=== PATIENT | male | born 1940 | race Two or more races ===

== ENCOUNTER 2017-10-30 18:22 | Inpatient (IN) | payer MEDICARE, MEDICAID ==
[~2017-10-30] VITALS: Ht 170.2 cm; Wt 68.0 kg
[~2017-10-30 18:22] MED LIST: ASPIRIN-LOW81 MG PO; BENICAR HCT 201 EACH PO; FLOMAX0.4 MG PO; GLUCOPHAGE500 MG PO; LIPITOR10 MG PO; RANITIDINE HCL150 MG PO
[2017-10-30] MEDS ORDERED: Acetaminophen 650 MG SUPP RECTAL ONE (18:45)
[2017-10-30] MEDS ORDERED: Acetaminophen 500mg (ES) tab ORAL ONE (19:00)
[2017-10-30 19:16] LABS: HEMATOCRIT 33.1 % (42.0-52.0); HEMOGLOBIN 11.1 G/DL (14.2-18.0); MEAN CORPUSCULAR VOLUME 93 FL (80-99); PLATELET COUNT 234 K/UL (150-450); RED BLOOD COUNT 3.56 M/UL (4.70-6.10); RED CELL DISTRIBUTION WIDTH 11.7 % (11.6-14.8); WHITE BLOOD COUNT 7.6 K/UL (4.8-10.8)
[2017-10-30 19:30] VITALS: BP 109/59
[2017-10-30] MEDS ORDERED: AMBIEN5 MG ORAL (19:32)
[2017-10-30 19:42] LABS: ALANINE AMINOTRANSFERASE 24 U/L (12-78); ALBUMIN 3.5 G/DL (3.4-5.0); ALBUMIN/GLOBULIN RATIO 0.9 (1.0-2.7); ALKALINE PHOSPHATASE 42 U/L (46-116); ANION GAP 9 mmol/L (5-15); ASPARTATE AMINO TRANSFERASE 20 U/L (15-37); BILIRUBIN,TOTAL 0.7 MG/DL (0.2-1.0); BLOOD UREA NITROGEN 22 mg/dL (7-18); CARBON DIOXIDE 22 MMOL/L (21-32); CHLORIDE 105 MMOL/L (98-107); CKMB 2.1 NG/ML (0.0-3.6); CREATINE KINASE 271 U/L (26-308); POTASSIUM 4.4 MMOL/L (3.5-5.1); SODIUM 136 MMOL/L (136-145)
[2017-10-30 19:54] LABS: APPEARANCE,URINE SLIGHTLY CLOUDY; BILIRUBIN, URINE NEGATIVE (NEGATIVE); COLOR,URINE YELLOW; GLUCOSE, URINE (UA) NEGATIVE (NEGATIVE); KETONES,URINE 2+ (NEGATIVE); LEUKOCYTE ESTERASE ,URINE 3+ (NEGATIVE); NITRITE,URINE NEGATIVE (NEGATIVE); PH,URINE 6 (4.5-8.0); PROTEIN,URINE 3+ (NEGATIVE); UROBILINOGEN,URINE 1 MG/DL (0.0-1.0)
[2017-10-30] MEDS ORDERED: Piperacillin/Tazobactam 3.375 GM in NS 110 ML IVPB ONE (20:15)
[2017-10-30 20:30] VITALS: BP 128/111
--- NOTE | 2017-10-30 20:49 | Emergency Room Report ---
History of Present Illness General Chief Complaint: Altered Level of Consciousness Source: Patient, Medical Record, EMS Present Illness HPI 77-year-old male presents ED for evaluation. Patient brought in by EMS. Family at bedside states the patient had prostate surgery yesterday. Was seen by urologist this morning as patient could not urinate and he placed a Jeffries catheter. Patient was brought home today and tonight patient became diaphoretic and had near syncopal episode. Hypotensive in field. Given IV fluids. Febrile in triage. Denies chest pain or shortness of breath. Denies nausea or vomiting. PMD is Dr. Wade. No other aggravating or relieving factors. Denies any other associated symptoms Allergies: Uncoded Allergies: NO KNOWN DRUG ALLERGY (Allergy, Unknown, 01/19/15) Patient History Past Medical History: DM, HTN Past Surgical History: other - prostate Pertinent Family History: none Social History: Denies: smoking, alcohol use, drug use Immunizations: UTD Reviewed Nursing Documentation: PMH: Agreed; PSxH: Agreed Nursing Documentation-PMH Past Medical History: No History, Except For Hx Cardiac Problems: Yes Hx Hypertension: Yes Hx Diabetes: Yes Hx Cancer: No Hx Gastrointestinal Problems: Yes - STOMACH PAIN. Hx Neurological Problems: No Review of Systems All Other Systems: negative except mentioned in HPI Physical Exam Vital Signs Date Time Temp Pulse Resp B/P (MAP) Pulse Ox O2 Delivery O2 Flow Rate FiO2 10/30/17 18:19 102 20 99/55 100 Room Air 10/30/17 19:18 102.0 Sp02 EP Interpretation: reviewed, normal General Appearance: no apparent distress, alert, GCS 15, non-toxic Head: normocephalic, atraumatic Eyes: bilateral eye normal inspection, bilateral eye PERRL ENT: hearing grossly normal, normal pharynx, no angioedema, normal voice Neck: full range of motion, supple/symm/no masses Respiratory: chest non-tender, lungs clear, normal breath sounds, speaking full sentences Cardiovascular #1: regular rate, rhythm, no edema Cardiovascular #2: 2+ carotid (R), 2+ carotid (L), 2+ radial (R), 2+ radial (L) , 2+ dorsalis pedis (R), 2+ dorsalis pedis (L) Gastrointestinal: normal bowel sounds, non tender, soft, non-distended, no guarding, no rebound Rectal: deferred Genitourinary: normal inspection, no CVA tenderness Musculoskeletal: back normal, gait/station normal, normal range of motion, non- tender Neurologic: alert, oriented x3, responsive, motor strength/tone normal, sensory intact, speech normal Psychiatric: judgement/insight normal, memory normal, mood/affect normal, no suicidal/homicidal ideation Reflexes: 3+ bicep (R), 3+ bicep (L), 3+ tricep (R), 3+ tricep (L), 3+ knee (R) , 3+ knee (L) Skin: normal color, no rash, warm/dry, well hydrated Lymphatic: no adenopathy Medical Decision Making Diagnostic Impression: Primary Impression: BPH (benign prostatic hyperplasia) Qualified Codes: N40.0 - Benign prostatic hyperplasia without lower urinary tract symptoms Additional Impressions: UTI (urinary tract infection) Qualified Codes: N39.0 - Urinary tract infection, site not specified Syncope Qualified Codes: R55 - Syncope and collapse ER Course Hospital Course 77-year-old male presents ED with syncopal episode at home. Diaphoretic. Afebrile. Status post prostate procedure. Differential diagnoses include: NM/unstable angina, arrythmia, dehydration, CVA/ TIA Clinical course Patient placed on stretcher. on cardiac surgeon. After initial history and physical I ordered labs, EKG, chest x-ray, IVFs, CT Brain labs reviewed- no leukocytosis, hemoglobin/hematocrit ok, electrolytes okay, troponins negative. UA + bacteria EKG-sinus tachycardia Chest x-ray- ? consolidation in RLL CT brain-unremarkable given abx. given IVFs. BP improved Case discussed with Dr. Joseph (covering for Dr Wade) and he agreed to accept the patient to his service for further care and support I. I feel this is a highly complex case requiring extensive working including EKG/Rhythm strip, Xray/CT/US, Blood/urine lab work, repeat exams while in ED, and administration of strong opiates/narcotics for pain control, admission to hospital or close patient follow up. Diagnosis - syncope, UTI, BPH admitted to telemetry in serious condition Labs Test 10/30/17 18:40 10/30/17 19:30 White Blood Count 7.6 K/UL (4.8-10.8) Red Blood Count 3.56 M/UL (4.70-6.10) Hemoglobin 11.1 G/DL (14.2-18.0) Hematocrit 33.1 % (42.0-52.0) Mean Corpuscular Volume 93 FL (80-99) Mean Corpuscular Hemoglobin 31.1 PG (27.0-31.0) Mean Corpuscular Hemoglobin Concent 33.5 G/DL (32.0-36.0) Red Cell Distribution Width 11.7 % (11.6-14.8) Platelet Count 234 K/UL (150-450) Mean Platelet Volume 6.5 FL (6.5-10.1) Neutrophils (%) (Auto) % (45.0-75.0) Lymphocytes (%) (Auto) % (20.0-45.0) Monocytes (%) (Auto) % (1.0-10.0) Eosinophils (%) (Auto) % (0.0-3.0) Basophils (%) (Auto) % (0.0-2.0) Sodium Level 136 MMOL/L (136-145) Potassium Level 4.4 MMOL/L (3.5-5.1) Chloride Level 105 MMOL/L (98-107) Carbon Dioxide Level 22 MMOL/L (21-32) Anion Gap 9 mmol/L (5-15) Blood Urea Nitrogen 22 mg/dL (7-18) Creatinine 2.0 MG/DL (0.55-1.30) Estimat Glomerular Filtration Rate mL/min (>60) Glucose Level 127 MG/DL (74-106) Lactic Acid Level 2.40 mmol/L (0.66-2.22) Calcium Level 9.0 MG/DL (8.5-10.1) Total Bilirubin 0.7 MG/DL (0.2-1.0) Aspartate Amino Transf (AST/SGOT) 20 U/L (15-37) Alanine Aminotransferase (ALT/SGPT) 24 U/L (12-78) Alkaline Phosphatase 42 U/L (46-116) Total Creatine Kinase 271 U/L (26-308) Creatine Kinase MB 2.1 NG/ML (0.0-3.6) Creatine Kinase MB Relative Index 0.7 Troponin I 0.016 ng/mL (0.000-0.056) Pro-B-Type Natriuretic Peptide 210 pg/mL (0-125) Total Protein 7.2 G/DL (6.4-8.2) Albumin 3.5 G/DL (3.4-5.0) Globulin 3.7 g/dL Albumin/Globulin Ratio 0.9 (1.0-2.7) Urine Color Yellow Urine Appearance Slightly cloudy Urine pH 6 (4.5-8.0) Urine Specific [place] 1.010 (1.005-1.035) Urine Protein 3+ (NEGATIVE) Urine Glucose (UA) Negative (NEGATIVE) Urine Ketones 2+ (NEGATIVE) Urine Occult Blood 5+ (NEGATIVE) Urine Nitrite Negative (NEGATIVE) Urine Bilirubin Negative (NEGATIVE) Urine Urobilinogen 1 MG/DL (0.0-1.0) Urine Leukocyte Esterase 3+ (NEGATIVE) Urine RBC 15-20 /HPF (0 - 0) Urine WBC 10-15 /HPF (0 - 0) Urine Squamous Epithelial Cells None /LPF (NONE/OCC) Urine Bacteria Moderate /HPF (NONE) Urine Yeast Few /HPF (NONE) EKG Diagnostic Results Rate: tachycardiac Rhythm: NSR ST Segments: no acute changes ASA given to the pt in ED: No Rhythm Strip Diag. Results EP Interpretation: yes Rhythm: NSR, no PVC's, no ectopy Chest X-Ray Diagnostic Results Chest X-Ray Diagnostic Results : Chest X-Ray Ordered: Yes # of Views/Limited/Complete: 1 View Indication: Other - syncope EP Interpretation: Yes Interpretation: no pneumothorax, other - atelectasis ? consolidation Impression: Other - ?PNA Electronically Signed by: Electronically signed by Justo Sandoval MD CT/MRI/US Diagnostic Results CT/MRI/US Diagnostic Results : Imaging Test Ordered: CT Head Impression no acute process Last Vital Signs Date Time Temp Pulse Resp B/P (MAP) Pulse Ox O2 Delivery O2 Flow Rate FiO2 10/30/17 19:30 104 21 109/59 96 Room Air 10/30/17 19:18 102.0 Status: improved Disposition: ADMITTED INPATIENT Condition: Serious Referrals: Tyoa Wade MD (PCP) JUSTO SANDOVAL M.D. Oct 30, 2017 20:49
[2017-10-30 21:30] VITALS: BP 101/53
[2017-10-30] MEDS ORDERED: Zosyn 3.375gm inj ONE (21:38)
[2017-10-30 23:30] VITALS: BP 101/53
[2017-10-31] VITALS: BP 108/72
[2017-10-31] MEDS ORDERED: Zolpidem 5mg tab ORAL PRN (00:45)
[2017-10-31] MEDS ORDERED: TYLENOL650 MG/20. ORAL (01:50)
[2017-10-31 04:00] VITALS: BP 115/66
[2017-10-31] MEDS ORDERED: Zosyn 3.375gm inj ONE (05:02)
[2017-10-31] MEDS ORDERED: Piperacillin/Tazobactam 3.375 GM in D5W 110 ML IVPB SCH (06:00)
[2017-10-31] MEDS ORDERED: NovoLOG Insulin Flexpen SUBQ SCH (06:30)
[2017-10-31 08:15] VITALS: BP 113/68
--- NOTE | 2017-10-31 08:47 | Diagnostic Imaging Report ---
Indication: Dyspnea Technique: XRAY Chest 1v Comparison: 10/30/2017 Findings: Cardiomediastinal silhouette is stable. Mild central pulmonary vascular congestion is noted. There is mild atelectasis. No pleural effusions are identified. Atherosclerotic changes are seen. Osseous structures are stable. Impression: No significant change from 10/30/2017.
[2017-10-31] MEDS ORDERED: hydroCHLOROthiazide 12.5mg TAB ORAL SCH (09:00)
[2017-10-31] MEDS ORDERED: Aspirin EC 81mg tab ORAL SCH (09:00)
[2017-10-31] MEDS ORDERED: Tamsulosin 0.4mg cap ORAL SCH (09:00)
[2017-10-31] MEDS ORDERED: metFORMIN 500mg tab ORAL SCH (09:00)
--- NOTE | 2017-10-31 09:47 | Diagnostic Imaging Report ---
Indication: Shortness of breath Technique: XRAY Chest 1v Comparison: None Findings: Cardiac silhouette is prominent. Atherosclerotic changes are seen. Mild bilateral interstitial opacities are noted. Degenerative changes of the spine are present. Impression: Mild bilateral interstitial edema versus infiltrates. Clinical correlation/follow-up recommended.
[2017-10-31 09:48] LABS: HEMATOCRIT 32.1 % (42.0-52.0); HEMOGLOBIN 10.8 G/DL (14.2-18.0); MEAN CORPUSCULAR VOLUME 93 FL (80-99); PLATELET COUNT 194 K/UL (150-450); RED BLOOD COUNT 3.43 M/UL (4.70-6.10); RED CELL DISTRIBUTION WIDTH 11.6 % (11.6-14.8); WHITE BLOOD COUNT 8.6 K/UL (4.8-10.8)
--- NOTE | 2017-10-31 09:48 | Diagnostic Imaging Report ---
Indication: Syncope Technique: Continuous helical CT scanning of the head was performed utilizing automated exposure control without intravenous contrast material. Axial and coronal reconstructions were obtained. Comparison: None CT dose: Total DLP 1305 mGycm; CTDI vol 70.4 mGy Findings: There is no acute intracranial hemorrhage, mass effect or cortical edema. The ventricles, cisterns and sulci are prominent consistent with atrophy. Periventricular hypoattenuation is seen, a nonspecific finding. The posterior fossa and fourth ventricle are unremarkable. Sellar and suprasellar regions are grossly unremarkable. Mild left posterior ethmoid sinus disease is present. Mastoid air cells are clear. No focal lesions of the bony calvarium or soft tissues of the scalp are seen. Impression: No evidence of acute intracranial hemorrhage, mass effect or cortical edema. MRI may be obtained for more sensitive evaluation as clinically indicated. Atrophy and nonspecific periventricular hypoattenuation suggestive of chronic ischemic microvascular changes. The CT scanner at [facility] is accredited by the [employer] and the scans are performed using protocols designed to limit radiation exposure to as low as reasonably achievable to attain images of sufficient resolution adequate for diagnostic evaluation.
[2017-10-31 10:13] LABS: ANION GAP 15 mmol/L (5-15); BLOOD UREA NITROGEN 20 mg/dL (7-18); CALCIUM 8.8 MG/DL (8.5-10.1); CARBON DIOXIDE 20 MMOL/L (21-32); CHLORIDE 103 MMOL/L (98-107); CREATININE 1.8 MG/DL (0.55-1.30); PHOSPHORUS 1.5 MG/DL (2.5-4.9); POTASSIUM 3.6 MMOL/L (3.5-5.1); SODIUM 138 MMOL/L (136-145)
--- NOTE | 2017-10-31 11:04 | Consultation ---
History of Present Illness General Date patient seen: Oct 31, 2017 Chief Complaint: Altered Level of Consciousness Present Illness HPI 77 y/o M with hx of DM2, HTN presents to ED on 10/30 with diaphoresis and near syncopal episode. Of note patient had prostate surgery 1 day [employer] and morning of admission patient was seen by urologist and aceves catheter was placed as patient was unable to void. Was found to be hypotensive by EMS which responded to IVFs. Febrileup to 102.5, now bacteremic with GNRs. Denies CP, SOB, n/v/d. Allergies: Coded Allergies: NO KNOWN DRUG ALLERGIES (Unverified Allergy, Unknown, 10/31/17) Uncoded Allergies: NO KNOWN DRUG ALLERGY (Allergy, Unknown, 01/19/15) Medication History Scheduled Aspirin (Aspirin EC), 81 MG PO DAILY, (Reported) Atorvastatin Calcium* (Lipitor*), 10 MG PO DAILY, (Reported) Metformin Hcl* (Glucophage*), 500 MG PO DAILY, (Reported) Olmesartan/Hydrochlorothiazide 20-12.5 (Benicar Hct 20-12.5 Mg Tablet), 1 EACH PO DAILY, (Reported) Ranitidine Hcl* (Zantac*), 150 MG PO DAILY, (Reported) Tamsulosin HCl (Flomax), 0.4 MG PO DAILY, (Reported) Scheduled PRN Acetaminophen (Acetaminophen), 650 MG ORAL Q6H PRN for Prn Headache/Temp > 101, (Reported) Zolpidem Tartrate* (Ambien*), 5 MG ORAL BEDTIME PRN for Insomnia, (Reported) Patient History Healthcare decision maker Resuscitation status Full Code Advanced Directive on File Patient History Narrative Pmx: as above Shx: Denies: smoking, alcohol use, drug use Fhx: non contributory Review of Systems All Other Systems: negative except mentioned in HPI Physical Exam Physical Exam Narrative General Appearance: no apparent distress, alert HEENT normocephalic, atraumatic, PERR, normal pharynx Neck: full range of motion, supple/symm/no masses Respiratory: chest non-tender, lungs clear, normal breath sounds, speaking full sentences Cardiovascular : regular rate, rhythm, no edema Gastrointestinal: normal bowel sounds, non tender, soft, non-distended, no guarding, no rebound Genitourinary: normal inspection, no CVA tenderness Musculoskeletal: back normal, gait/station normal, normal range of motion, non- tender Neurologic: alert, oriented x3, responsive, motor strength/tone normal, sensory intact, speech normal Skin: normal color, no rash, warm/dry, well hydrated Last 24 Hour Vital Signs Date Time Temp Pulse Resp B/P (MAP) Pulse Ox O2 Delivery O2 Flow Rate FiO2 10/31/17 08:15 20 95 Venturi Mask 10.0 50 10/31/17 08:15 98.4 99 20 113/68 95 Nasal Cannula 98.4 10/31/17 04:12 136 10/31/17 04:00 100.6 136 36 115/66 94 Venturi Mask 50 100.6 10/31/17 04:00 115 10/31/17 03:55 100.6 10/31/17 02:44 102.5 10/31/17 01:40 140 10/31/17 00:00 102.6 115 22 108/72 96 Room Air 102.6 10/30/17 23:40 97.7 86 23 101/53 96 Room Air 102.0 10/30/17 23:30 86 23 101/53 96 Room Air 10/30/17 21:30 97 24 101/53 95 Room Air 10/30/17 20:30 104 23 128/111 95 Room Air 10/30/17 20:17 102.0 10/30/17 19:30 104 21 109/59 96 Room Air 10/30/17 19:18 102.0 10/30/17 18:19 102 20 99/55 100 Room Air Intake and Output 10/30/17 10/31/17 19:00 07:00 Output Total 50 ml Balance -50 ml Output Urine Total 50 ml # Bowel Movements 1 Laboratory Tests Test 10/30/17 18:40 10/30/17 19:30 10/31/17 04:14 10/31/17 09:08 White Blood Count 7.6 K/UL (4.8-10.8) 8.6 K/UL (4.8-10.8) Red Blood Count 3.56 M/UL (4.70-6.10) L 3.43 M/UL (4.70-6.10) L Hemoglobin 11.1 G/DL (14.2-18.0) L 10.8 G/DL (14.2-18.0) L Hematocrit 33.1 % (42.0-52.0) L 32.1 % (42.0-52.0) L Mean Corpuscular Volume 93 FL (80-99) 93 FL (80-99) Mean Corpuscular Hemoglobin 31.1 PG (27.0-31.0) H 31.5 PG (27.0-31.0) H Mean Corpuscular Hemoglobin Concent 33.5 G/DL (32.0-36.0) 33.7 G/DL (32.0-36.0) Red Cell Distribution Width 11.7 % (11.6-14.8) 11.6 % (11.6-14.8) Platelet Count 234 K/UL (150-450) 194 K/UL (150-450) Mean Platelet Volume 6.5 FL (6.5-10.1) 6.8 FL (6.5-10.1) Neutrophils (%) (Auto) % (45.0-75.0) % (45.0-75.0) Lymphocytes (%) (Auto) % (20.0-45.0) % (20.0-45.0) Monocytes (%) (Auto) % (1.0-10.0) % (1.0-10.0) Eosinophils (%) (Auto) % (0.0-3.0) % (0.0-3.0) Basophils (%) (Auto) % (0.0-2.0) % (0.0-2.0) Sodium Level 136 MMOL/L (136-145) 138 MMOL/L (136-145) Potassium Level 4.4 MMOL/L (3.5-5.1) 3.6 MMOL/L (3.5-5.1) Chloride Level 105 MMOL/L (98-107) 103 MMOL/L (98-107) Carbon Dioxide Level 22 MMOL/L (21-32) 20 MMOL/L (21-32) L Anion Gap 9 mmol/L (5-15) 15 mmol/L (5-15) Blood Urea Nitrogen 22 mg/dL (7-18) H 20 mg/dL (7-18) H Creatinine 2.0 MG/DL (0.55-1.30) H 1.8 MG/DL (0.55-1.30) H Estimat Glomerular Filtration Rate mL/min (>60) mL/min (>60) Glucose Level 127 MG/DL (74-106) H 151 MG/DL (74-106) H Lactic Acid Level 2.40 mmol/L (0.66-2.22) H Calcium Level 9.0 MG/DL (8.5-10.1) 8.8 MG/DL (8.5-10.1) Total Bilirubin 0.7 MG/DL (0.2-1.0) Aspartate Amino Transf (AST/SGOT) 20 U/L (15-37) Alanine Aminotransferase (ALT/SGPT) 24 U/L (12-78) Alkaline Phosphatase 42 U/L (46-116) L Total Creatine Kinase 271 U/L (26-308) Creatine Kinase MB 2.1 NG/ML (0.0-3.6) Creatine Kinase MB Relative Index 0.7 Troponin I 0.016 ng/mL (0.000-0.056) Pro-B-Type Natriuretic Peptide 210 pg/mL (0-125) H Total Protein 7.2 G/DL (6.4-8.2) Albumin 3.5 G/DL (3.4-5.0) Globulin 3.7 g/dL Albumin/Globulin Ratio 0.9 (1.0-2.7) L Urine Color Yellow Urine Appearance Slightly cloudy Urine pH 6 (4.5-8.0) Urine Specific [place] 1.010 (1.005-1.035) Urine Protein 3+ (NEGATIVE) H Urine Glucose (UA) Negative (NEGATIVE) Urine Ketones 2+ (NEGATIVE) H Urine Occult Blood 5+ (NEGATIVE) H Urine Nitrite Negative (NEGATIVE) Urine Bilirubin Negative (NEGATIVE) Urine Urobilinogen 1 MG/DL (0.0-1.0) H Urine Leukocyte Esterase 3+ (NEGATIVE) H Urine RBC 15-20 /HPF (0 - 0) H Urine WBC 10-15 /HPF (0 - 0) H Urine Squamous Epithelial Cells None /LPF (NONE/OCC) Urine Bacteria Moderate /HPF (NONE) H Urine Yeast Few /HPF (NONE) H Arterial Blood pH 7.364 (7.350-7.450) Arterial Blood Partial Pressure CO2 25.7 mmHg (35.0-45.0) L Arterial Blood Partial Pressure O2 187.9 mmHg (75.0-100.0) H Arterial Blood HCO3 14.3 mmol/L (22.0-26.0) L Arterial Blood Oxygen Saturation 98.5 % (92.0-98.0) H Arterial Blood Base Excess -9.4 Mateusz Test Positive Neutrophils % (Manual) Pending Lymphocytes % (Manual) Pending Platelet Estimate Pending Platelet Morphology Pending Hemoglobin A1c Pending Phosphorus Level 1.5 MG/DL (2.5-4.9) L Magnesium Level 1.0 MG/DL (1.8-2.4) L Microbiology Date/Time Source Procedure Growth Status 10/30/17 18:50 Blood Blood Culture - Preliminary Resulted 10/30/17 18:40 Blood Blood Culture - Preliminary Resulted 10/30/17 19:30 Urine,Clean Catch Urine Culture - Preliminary Resulted Height (Feet): 5 Height (Inches): 7.00 Weight (Pounds): 150 Medications Current Medications Medications (Trade) Dose Ordered Sig/Bryanna Route PRN Reason Start Time Stop Time Status Last Admin Dose Admin Acetaminophen (Tylenol) 650 mg Q4H PRN ORAL Mild Pain/Temp > 100.5 10/31/17 02:00 11/30/17 01:59 10/31/17 02:44 Aspirin (Ecotrin) 81 mg DAILY ORAL 10/31/17 09:00 11/30/17 08:59 10/31/17 09:39 Atorvastatin Calcium (Lipitor) 10 mg QHS ORAL 10/31/17 21:00 11/30/17 20:59 Dextrose (Dextrose 50%) STAT PRN IV Hypoglycemia 10/31/17 00:45 11/30/17 00:44 Hydrochlorothiazide (Hydrodiuril) 12.5 mg DAILY ORAL 10/31/17 09:00 11/30/17 08:59 10/31/17 09:39 Insulin Aspart (NovoLOG) BEFORE MEALS AND HS SUBQ 10/31/17 06:30 11/30/17 06:29 Metformin HCl (Glucophage) 500 mg DAILY ORAL 10/31/17 09:00 11/30/17 08:59 UNV Piperacillin Sod/ Tazobactam Sod 3.375 gm/Dextrose 110 ml @ 27.5 mls/hr EVERY 8 HOURS IVPB 10/31/17 06:00 11/05/17 05:59 10/31/17 05:32 Tamsulosin HCl (Flomax) 0.4 mg DAILY ORAL 10/31/17 09:00 11/30/17 08:59 10/31/17 09:39 Zolpidem Tartrate (Ambien) 5 mg BEDTIME PRN ORAL Insomnia 10/31/17 00:45 11/07/17 00:44 10/31/17 01:51 Assessment/Plan Assessment/Plan Abx: Zosyn 10/30- Assessment: Sepsis 2ry to GNR bacteremia likely translocation from recent urologic procedure - r/o ESBL -Bcx 10/30 10/11 GNRs -u/a wbc 10-15, nit neg, leuk +3; ucx p Fever- 2ry to above -no leukocytosis -CXR: Mild central pulmonary vascular congestion is noted. There is mild atelectasis. No pleural effusions are identified. Acute resp distress Pre syncope- likely due to hypotension -CT head: no acute findings. Urinary retention s/p Aceves placeemnt 10/30 S/p prostate surgery 10/29 DM2 HTN Plan: -Switch Zosyn #2 to Meropenem for ESBL coverage pending ID and sensi GNRs -2 sets of Bcx -if persistent fevers, bacteremia, obtain CT abd/p -f/u cx -Monitor CBC/BMP, temperatures Thank you for this consultation. Will continue to follow along with you. Discussed with Taniya De Leon M.D. Oct 31, 2017 11:04
[2017-10-31] MEDS ORDERED: Meropenem 1 GM in NS 55 ML IVPB SCH (11:15)
[2017-10-31 12:00] VITALS: BP 154/63
[2017-10-31] MEDS: NovoLOG Insulin Flexpen SUBQ SCH ×4 (12:53→22:30)
--- NOTE | 2017-10-31 14:05 | History & Physical ---
History and Physical History & Physicial Dictated for Int Med-Dr Hutton no. [id number]. EBER SCHUMACHER Oct 31, 2017 14:05
[2017-10-31 16:00] VITALS: BP 113/47
--- NOTE | 2017-10-31 16:09 | Cardiology Progress Note ---
Assessment/Plan Assessment/Plan The patient is seen and examined, full consult note will be dictated. Objective Last 24 Hour Vital Signs Date Time Temp Pulse Resp B/P (MAP) Pulse Ox O2 Delivery O2 Flow Rate FiO2 10/31/17 12:04 98 10/31/17 12:00 97.9 97 22 154/63 97 Venturi Mask 10.0 50 97.9 10/31/17 08:15 20 95 Venturi Mask 10.0 50 10/31/17 08:15 98.4 99 20 113/68 95 Nasal Cannula 98.4 10/31/17 08:00 110 10/31/17 04:12 136 10/31/17 04:00 100.6 136 36 115/66 94 Venturi Mask 50 100.6 10/31/17 04:00 115 10/31/17 03:55 100.6 10/31/17 02:44 102.5 10/31/17 01:40 140 10/31/17 00:00 102.6 115 22 108/72 96 Room Air 102.6 10/30/17 23:40 97.7 86 23 101/53 96 Room Air 102.0 10/30/17 23:30 86 23 101/53 96 Room Air 10/30/17 21:30 97 24 101/53 95 Room Air 10/30/17 20:30 104 23 128/111 95 Room Air 10/30/17 20:17 102.0 10/30/17 19:30 104 21 109/59 96 Room Air 10/30/17 19:18 102.0 10/30/17 18:19 102 20 99/55 100 Room Air Intake and Output 10/30/17 10/31/17 19:00 07:00 Output Total 50 ml Balance -50 ml Output Urine Total 50 ml # Bowel Movements 1 Laboratory Tests Test 10/30/17 18:40 10/30/17 19:30 10/31/17 04:14 10/31/17 09:08 White Blood Count 7.6 K/UL (4.8-10.8) 8.6 K/UL (4.8-10.8) Red Blood Count 3.56 M/UL (4.70-6.10) L 3.43 M/UL (4.70-6.10) L Hemoglobin 11.1 G/DL (14.2-18.0) L 10.8 G/DL (14.2-18.0) L Hematocrit 33.1 % (42.0-52.0) L 32.1 % (42.0-52.0) L Mean Corpuscular Volume 93 FL (80-99) 93 FL (80-99) Mean Corpuscular Hemoglobin 31.1 PG (27.0-31.0) H 31.5 PG (27.0-31.0) H Mean Corpuscular Hemoglobin Concent 33.5 G/DL (32.0-36.0) 33.7 G/DL (32.0-36.0) Red Cell Distribution Width 11.7 % (11.6-14.8) 11.6 % (11.6-14.8) Platelet Count 234 K/UL (150-450) 194 K/UL (150-450) Mean Platelet Volume 6.5 FL (6.5-10.1) 6.8 FL (6.5-10.1) Neutrophils (%) (Auto) % (45.0-75.0) % (45.0-75.0) Lymphocytes (%) (Auto) % (20.0-45.0) % (20.0-45.0) Monocytes (%) (Auto) % (1.0-10.0) % (1.0-10.0) Eosinophils (%) (Auto) % (0.0-3.0) % (0.0-3.0) Basophils (%) (Auto) % (0.0-2.0) % (0.0-2.0) Sodium Level 136 MMOL/L (136-145) 138 MMOL/L (136-145) Potassium Level 4.4 MMOL/L (3.5-5.1) 3.6 MMOL/L (3.5-5.1) Chloride Level 105 MMOL/L (98-107) 103 MMOL/L (98-107) Carbon Dioxide Level 22 MMOL/L (21-32) 20 MMOL/L (21-32) L Anion Gap 9 mmol/L (5-15) 15 mmol/L (5-15) Blood Urea Nitrogen 22 mg/dL (7-18) H 20 mg/dL (7-18) H Creatinine 2.0 MG/DL (0.55-1.30) H 1.8 MG/DL (0.55-1.30) H Estimat Glomerular Filtration Rate mL/min (>60) mL/min (>60) Glucose Level 127 MG/DL (74-106) H 151 MG/DL (74-106) H Lactic Acid Level 2.40 mmol/L (0.66-2.22) H Calcium Level 9.0 MG/DL (8.5-10.1) 8.8 MG/DL (8.5-10.1) Total Bilirubin 0.7 MG/DL (0.2-1.0) Aspartate Amino Transf (AST/SGOT) 20 U/L (15-37) Alanine Aminotransferase (ALT/SGPT) 24 U/L (12-78) Alkaline Phosphatase 42 U/L (46-116) L Total Creatine Kinase 271 U/L (26-308) Creatine Kinase MB 2.1 NG/ML (0.0-3.6) Creatine Kinase MB Relative Index 0.7 Troponin I 0.016 ng/mL (0.000-0.056) Pro-B-Type Natriuretic Peptide 210 pg/mL (0-125) H Total Protein 7.2 G/DL (6.4-8.2) Albumin 3.5 G/DL (3.4-5.0) Globulin 3.7 g/dL Albumin/Globulin Ratio 0.9 (1.0-2.7) L Urine Color Yellow Urine Appearance Slightly cloudy Urine pH 6 (4.5-8.0) Urine Specific [place] 1.010 (1.005-1.035) Urine Protein 3+ (NEGATIVE) H Urine Glucose (UA) Negative (NEGATIVE) Urine Ketones 2+ (NEGATIVE) H Urine Occult Blood 5+ (NEGATIVE) H Urine Nitrite Negative (NEGATIVE) Urine Bilirubin Negative (NEGATIVE) Urine Urobilinogen 1 MG/DL (0.0-1.0) H Urine Leukocyte Esterase 3+ (NEGATIVE) H Urine RBC 15-20 /HPF (0 - 0) H Urine WBC 10-15 /HPF (0 - 0) H Urine Squamous Epithelial Cells None /LPF (NONE/OCC) Urine Bacteria Moderate /HPF (NONE) H Urine Yeast Few /HPF (NONE) H Arterial Blood pH 7.364 (7.350-7.450) Arterial Blood Partial Pressure CO2 25.7 mmHg (35.0-45.0) L Arterial Blood Partial Pressure O2 187.9 mmHg (75.0-100.0) H Arterial Blood HCO3 14.3 mmol/L (22.0-26.0) L Arterial Blood Oxygen Saturation 98.5 % (92.0-98.0) H Arterial Blood Base Excess -9.4 Mateusz Test Positive Differential Total Cells Counted 100 Neutrophils % (Manual) 80 % (45-75) H Lymphocytes % (Manual) 7 % (20-45) L Monocytes % (Manual) 2 % (1-10) Eosinophils % (Manual) 0 % (0-3) Basophils % (Manual) 0 % (0-2) Band Neutrophils 11 % (0-8) H Platelet Estimate Adequate Platelet Morphology Normal Red Blood Cell Morphology Normal Hemoglobin A1c 4.6 % (4.3-6.0) Phosphorus Level 1.5 MG/DL (2.5-4.9) L Magnesium Level 1.0 MG/DL (1.8-2.4) L Microbiology Date/Time Source Procedure Growth Status 10/30/17 18:50 Blood Blood Culture - Preliminary Resulted 10/30/17 18:40 Blood Blood Culture - Preliminary Resulted 10/30/17 19:30 Urine,Clean Catch Urine Culture - Preliminary Resulted CHUY WALLACE Oct 31, 2017 16:09
--- NOTE | 2017-10-31 17:10 | Pulmonolgy Critical Care Note ---
Critical Care - Asmt/Plan Assessment/Plan: HPI 77 y/o M presents c/p fever, fainting episode, note s/p recent prostate surgery , noted to have Gram Negative Rods on Blood Cultures. PMH of DM2, HTN. On the morning of admission patient was seen by urologist and aceves catheter was placed as patient was unable to void. Was found to be hypotensive by EMS which responded to IVFs. Fevers to 102.5 noted. Denies CP, SOB, n/v/d. Allergies: Coded Allergies: NO KNOWN DRUG ALLERGIES (Unverified Allergy, Unknown, 10/31/17) Uncoded Allergies: NO KNOWN DRUG ALLERGY (Allergy, Unknown, 01/19/15) Medication History Scheduled Aspirin (Aspirin EC), 81 MG PO DAILY, (Reported) Atorvastatin Calcium* (Lipitor*), 10 MG PO DAILY, (Reported) Metformin Hcl* (Glucophage*), 500 MG PO DAILY, (Reported) Olmesartan/Hydrochlorothiazide 20-12.5 (Benicar Hct 20-12.5 Mg Tablet), 1 EACH PO DAILY, (Reported) Ranitidine Hcl* (Zantac*), 150 MG PO DAILY, (Reported) Tamsulosin HCl (Flomax), 0.4 MG PO DAILY, (Reported) Scheduled PRN Acetaminophen (Acetaminophen), 650 MG ORAL Q6H PRN for Prn Headache/Temp > 101, (Reported) Zolpidem Tartrate* (Ambien*), 5 MG ORAL BEDTIME PRN for Insomnia, (Reported) Patient History Healthcare decision maker Resuscitation status Full Code Advanced Directive on File Patient History Narrative Pmx: as above Shx: Denies: smoking, alcohol use, drug use Fhx: non contributory Review of Systems All Other Systems: negative except mentioned in HPI Physical Exam Physical Exam Narrative General Appearance: no apparent distress, alert HEENT normocephalic, atraumatic, PERR, normal pharynx Neck: full range of motion, supple/symm/no masses Respiratory: chest non-tender, lungs clear, normal breath sounds, speaking full sentences Cardiovascular : regular rate, rhythm, no edema Gastrointestinal: normal bowel sounds, non tender, soft, non-distended, no guarding, no rebound Genitourinary: normal inspection, no CVA tenderness Musculoskeletal: back normal, gait/station normal, normal range of motion, non- tender Neurologic: alert, oriented x3, responsive, motor strength/tone normal, sensory intact, speech normal Skin: normal color, no rash, warm/dry, well hydrated Last 24 Hour Vital Signs Date Time Temp Pulse Resp B/P (MAP) Pulse Ox O2 Delivery O2 Flow Rate FiO2 10/31/17 08:15 20 95 Venturi Mask 10.0 50 10/31/17 08:15 98.4 99 20 113/68 95 Nasal Cannula 98.4 10/31/17 04:12 136 10/31/17 04:00 100.6 136 36 115/66 94 Venturi Mask 50 100.6 10/31/17 04:00 115 10/31/17 03:55 100.6 10/31/17 02:44 102.5 10/31/17 01:40 140 10/31/17 00:00 102.6 115 22 108/72 96 Room Air 102.6 10/30/17 23:40 97.7 86 23 101/53 96 Room Air 102.0 10/30/17 23:30 86 23 101/53 96 Room Air 10/30/17 21:30 97 24 101/53 95 Room Air 10/30/17 20:30 104 23 128/111 95 Room Air 10/30/17 20:17 102.0 10/30/17 19:30 104 21 109/59 96 Room Air 10/30/17 19:18 102.0 10/30/17 18:19 102 20 99/55 100 Room Air Intake and Output 10/30/17 10/31/17 19:00 07:00 Output Total 50 ml Balance -50 ml Output Urine Total 50 ml # Bowel Movements 1 Laboratory Tests Test 10/30/17 18:40 10/30/17 19:30 10/31/17 04:14 10/31/17 09:08 White Blood Count 7.6 K/UL (4.8-10.8) 8.6 K/UL (4.8-10.8) Red Blood Count 3.56 M/UL (4.70-6.10) L 3.43 M/UL (4.70-6.10) L Hemoglobin 11.1 G/DL (14.2-18.0) L 10.8 G/DL (14.2-18.0) L Hematocrit 33.1 % (42.0-52.0) L 32.1 % (42.0-52.0) L Mean Corpuscular Volume 93 FL (80-99) 93 FL (80-99) Mean Corpuscular Hemoglobin 31.1 PG (27.0-31.0) H 31.5 PG (27.0-31.0) H Mean Corpuscular Hemoglobin Concent 33.5 G/DL (32.0-36.0) 33.7 G/DL (32.0-36.0) Red Cell Distribution Width 11.7 % (11.6-14.8) 11.6 % (11.6-14.8) Platelet Count 234 K/UL (150-450) 194 K/UL (150-450) Mean Platelet Volume 6.5 FL (6.5-10.1) 6.8 FL (6.5-10.1) Neutrophils (%) (Auto) % (45.0-75.0) % (45.0-75.0) Lymphocytes (%) (Auto) % (20.0-45.0) % (20.0-45.0) Monocytes (%) (Auto) % (1.0-10.0) % (1.0-10.0) Eosinophils (%) (Auto) % (0.0-3.0) % (0.0-3.0) Basophils (%) (Auto) % (0.0-2.0) % (0.0-2.0) Sodium Level 136 MMOL/L (136-145) 138 MMOL/L (136-145) Potassium Level 4.4 MMOL/L (3.5-5.1) 3.6 MMOL/L (3.5-5.1) Chloride Level 105 MMOL/L (98-107) 103 MMOL/L (98-107) Carbon Dioxide Level 22 MMOL/L (21-32) 20 MMOL/L (21-32) L Anion Gap 9 mmol/L (5-15) 15 mmol/L (5-15) Blood Urea Nitrogen 22 mg/dL (7-18) H 20 mg/dL (7-18) H Creatinine 2.0 MG/DL (0.55-1.30) H 1.8 MG/DL (0.55-1.30) H Estimat Glomerular Filtration Rate mL/min (>60) mL/min (>60) Glucose Level 127 MG/DL (74-106) H 151 MG/DL (74-106) H Lactic Acid Level 2.40 mmol/L (0.66-2.22) H Calcium Level 9.0 MG/DL (8.5-10.1) 8.8 MG/DL (8.5-10.1) Total Bilirubin 0.7 MG/DL (0.2-1.0) Aspartate Amino Transf (AST/SGOT) 20 U/L (15-37) Alanine Aminotransferase (ALT/SGPT) 24 U/L (12-78) Alkaline Phosphatase 42 U/L (46-116) L Total Creatine Kinase 271 U/L (26-308) Creatine Kinase MB 2.1 NG/ML (0.0-3.6) Creatine Kinase MB Relative Index 0.7 Troponin I 0.016 ng/mL (0.000-0.056) Pro-B-Type Natriuretic Peptide 210 pg/mL (0-125) H Total Protein 7.2 G/DL (6.4-8.2) Albumin 3.5 G/DL (3.4-5.0) Globulin 3.7 g/dL Albumin/Globulin Ratio 0.9 (1.0-2.7) L Urine Color Yellow Urine Appearance Slightly cloudy Urine pH 6 (4.5-8.0) Urine Specific [place] 1.010 (1.005-1.035) Urine Protein 3+ (NEGATIVE) H Urine Glucose (UA) Negative (NEGATIVE) Urine Ketones 2+ (NEGATIVE) H Urine Occult Blood 5+ (NEGATIVE) H Urine Nitrite Negative (NEGATIVE) Urine Bilirubin Negative (NEGATIVE) Urine Urobilinogen 1 MG/DL (0.0-1.0) H Urine Leukocyte Esterase 3+ (NEGATIVE) H Urine RBC 15-20 /HPF (0 - 0) H Urine WBC 10-15 /HPF (0 - 0) H Urine Squamous Epithelial Cells None /LPF (NONE/OCC) Urine Bacteria Moderate /HPF (NONE) H Urine Yeast Few /HPF (NONE) H Arterial Blood pH 7.364 (7.350-7.450) Arterial Blood Partial Pressure CO2 25.7 mmHg (35.0-45.0) L Arterial Blood Partial Pressure O2 187.9 mmHg (75.0-100.0) H Arterial Blood HCO3 14.3 mmol/L (22.0-26.0) L Arterial Blood Oxygen Saturation 98.5 % (92.0-98.0) H Arterial Blood Base Excess -9.4 Mateusz Test Positive Neutrophils % (Manual) Pending Lymphocytes % (Manual) Pending Platelet Estimate Pending Platelet Morphology Pending Hemoglobin A1c Pending Phosphorus Level 1.5 MG/DL (2.5-4.9) L Magnesium Level 1.0 MG/DL (1.8-2.4) L Microbiology Date/Time Source Procedure Growth Status 10/30/17 18:50 Blood Blood Culture - Preliminary Resulted 10/30/17 18:40 Blood Blood Culture - Preliminary Resulted 10/30/17 19:30 Urine,Clean Catch Urine Culture - Preliminary Resulted Height (Feet): 5 Height (Inches): 7.00 Weight (Pounds): 150 Medications Current Medications Medications (Trade) Dose Ordered Sig/Bryanna Route PRN Reason Start Time Stop Time Status Last Admin Dose Admin Acetaminophen (Tylenol) 650 mg Q4H PRN ORAL Mild Pain/Temp > 100.5 10/31/17 02:00 11/30/17 01:59 10/31/17 02:44 Aspirin (Ecotrin) 81 mg DAILY ORAL 10/31/17 09:00 11/30/17 08:59 10/31/17 09:39 Atorvastatin Calcium (Lipitor) 10 mg QHS ORAL 10/31/17 21:00 11/30/17 20:59 Dextrose (Dextrose 50%) STAT PRN IV Hypoglycemia 10/31/17 00:45 11/30/17 00:44 Hydrochlorothiazide (Hydrodiuril) 12.5 mg DAILY ORAL 10/31/17 09:00 11/30/17 08:59 10/31/17 09:39 Insulin Aspart (NovoLOG) BEFORE MEALS AND HS SUBQ 10/31/17 06:30 11/30/17 06:29 Metformin HCl (Glucophage) 500 mg DAILY ORAL 10/31/17 09:00 11/30/17 08:59 UNV Piperacillin Sod/ Tazobactam Sod 3.375 gm/Dextrose 110 ml @ 27.5 mls/hr EVERY 8 HOURS IVPB 10/31/17 06:00 11/05/17 05:59 10/31/17 05:32 Tamsulosin HCl (Flomax) 0.4 mg DAILY ORAL 10/31/17 09:00 11/30/17 08:59 10/31/17 09:39 Zolpidem Tartrate (Ambien) 5 mg BEDTIME PRN ORAL Insomnia 10/31/17 00:45 11/07/17 00:44 10/31/17 01:51 Assessment/Plan Assessment: Sepsis/fevers secondary to GNR bacteremia likely translocation from recent urologic procedure - r/o ESBL -Bcx 10/30 10/11 GNRs -u/a wbc 10-15, nit neg, leuk +3; ucx p Acute resp distress: CXR: Mild central pulmonary vascular congestion is noted. There is mild atelectasis. No pleural effusions are identified. Avoid excessive positive fluid balance Pre syncope- likely due to hypotension -CT head: no acute findings. Urinary retention s/p Aceves placeemnt 10/30 S/p prostate surgery 10/29 DM2 HTN Plan: Continue Antibiotics per ID Meropenem for ESBL coverage pending ID and sensi GNRs -Monitor labs - PRN Oxygen - Triflo - DVT prophyllaxis Thank you for this consultation. Discussed with RN. Critical Care - Objective Last 24 Hour Vital Signs Date Time Temp Pulse Resp B/P (MAP) Pulse Ox O2 Delivery O2 Flow Rate FiO2 10/31/17 12:04 98 10/31/17 12:00 97.9 97 22 154/63 97 Venturi Mask 10.0 50 97.9 10/31/17 08:15 20 95 Venturi Mask 10.0 50 10/31/17 08:15 98.4 99 20 113/68 95 Nasal Cannula 98.4 10/31/17 08:00 110 10/31/17 04:12 136 10/31/17 04:00 100.6 136 36 115/66 94 Venturi Mask 50 100.6 10/31/17 04:00 115 10/31/17 03:55 100.6 10/31/17 02:44 102.5 10/31/17 01:40 140 10/31/17 00:00 102.6 115 22 108/72 96 Room Air 102.6 10/30/17 23:40 97.7 86 23 101/53 96 Room Air 102.0 10/30/17 23:30 86 23 101/53 96 Room Air 10/30/17 21:30 97 24 101/53 95 Room Air 10/30/17 20:30 104 23 128/111 95 Room Air 10/30/17 20:17 102.0 10/30/17 19:30 104 21 109/59 96 Room Air 10/30/17 19:18 102.0 10/30/17 18:19 102 20 99/55 100 Room Air Micro: Microbiology Date/Time Source Procedure Growth Status 10/30/17 18:50 Blood Blood Culture - Preliminary Resulted 10/30/17 18:40 Blood Blood Culture - Preliminary Resulted 10/30/17 19:30 Urine,Clean Catch Urine Culture - Preliminary Resulted Accucheck: 170 Critical Care - Subjective ROS Limited/Unobtainable: Yes Condition: unchanged EKG Rhythm: Sinus Rhythm FI02: 50 I&O: Intake and Output 10/30/17 10/31/17 19:00 07:00 Output Total 50 ml Balance -50 ml Output Urine Total 50 ml # Bowel Movements 1 Kurtis Carlos M.D. Oct 31, 2017 17:10
[2017-10-31] MEDS: Meropenem 1 GM in NS 110 ML IVPB SCH (18:23)
[2017-10-31 20:00] VITALS: BP 108/59
--- NOTE | 2017-10-31 20:45 | History and Physical Report ---
DATE OF ADMISSION: 10/30/2017 CHIEF COMPLAINT: The patient is a 77-year-old white male, presents with chief complaint of near syncope. HISTORY OF PRESENT ILLNESS: The patient is Farsi speaking. The patient does speak some Lithuanian. Much of the history and physical is obtained from the patient's medical record. According to the patient's family, the patient had prostate cancer yesterday, 10/30/2017. The patient was then unable to urinate. The patient was seen by the urologist, who placed a Jeffries catheter. The patient returned home after seen the urologist as above. The patient began to experience diaphoresis. Then, the patient had a near syncopal episode. The patient presented to [facility] emergency room. The patient was found to be febrile. The patient was also hypotensive according to EMS. The patient was admitted for hypotension and fever to rule out sepsis. REVIEW OF SYSTEMS: Unable to assess secondary to patient's mental status. PAST MEDICAL HISTORY: Significant for: 1. Diabetes type 2. 2. Benign prostatic hypertrophy. 3. Hypertension. 4. Hypercholesterolemia. PAST SURGICAL HISTORY: Significant for transurethral resection of the prostate as above. CURRENT MEDICATIONS: 1. Aspirin 81 mg one tablet p.o. daily. 2. Lipitor 10 mg p.o. daily. 3. Metformin 500 mg p.o. daily. 4. Benicar/hydrochlorothiazide 20/12.5 mg p.o. daily. 5. Zantac 150 mg p.o. daily. 6. Flomax 0.4 mg p.o. daily. 7. Ambien 5 5 mg p.o. at bedtime. ALLERGIES: No known drug allergies. SOCIAL HISTORY: The patient is . The patient denies tobacco or alcohol. PHYSICAL EXAMINATION: VITAL SIGNS: Temperature 100.6 degrees, respirations 36, pulse 115 to 136, blood pressure 115/66. GENERAL: The patient is a well-nourished white male, in no apparent distress. HEENT: Eyes, pupils equal responsive to light and accommodation. Extraocular movements are intact. NECK: Supple without lymphadenopathy. CHEST: Decreased breath sounds in bilateral bases. Otherwise, clear to auscultation without wheezes or rales. CARDIOVASCULAR: Regular rhythm and rate. S1, S2 normal without murmurs, rubs, or gallops. ABDOMEN: Soft, nontender, and nondistended. Positive bowel sounds. No evidence of hepatosplenomegaly. Currently, no rebound or guarding noted. EXTREMITIES: Negative for clubbing, cyanosis, or edema. RECTAL/GENITAL: Refused. NEUROLOGIC: Cranial nerves II to XII are grossly intact without focal deficits. Motor strength is 5/5 bilaterally. Deep tendon reflexes are 2+ plantar. LABORATORY STUDIES: WBC 7.6, hemoglobin 9.1, hematocrit 33.1, platelets 234,000. Sodium 136, potassium 4.4, chloride 105, CO2 22, BUN 22, creatinine 2.0, glucose 127. Lactic acid 2.40. Urinalysis showed 3+ protein, 2+ ketones, 5+ occult blood, 15 to 20, rbc's and 10 to 15 wbc's with moderate bacteria. ASSESSMENT: This is a 77-year-old white male. 1. Fever. 2. Near syncope. 3. Probable sepsis. 4. Benign prostatic hypertrophy. 5. Diabetes type 2. 6. Hypertension. 7. Hypercholesterolemia. TREATMENT: 1. Near syncope. This is probably secondary to sepsis secondary to urinary tract infection. The patient has been started empirically on Zosyn. An Infectious Disease consultation is pending. 2. Fever. This is probably secondary to septic shock as above. 3. Blood cultures are pending. Urine culture is pending. 4. Benign prostatic hypertrophy. The patient is status post transurethral resection of the prostate. 5. Diabetes type 2. The patient has been placed on a NovoLog sliding scale. 6. Hypertension. The patient is currently hypotensive. 7. Hypercholesterolemia. Continue Lipitor as above. Jayce Alexis M.D. DR: Derick JOB#: [id number] CC:
[2017-10-31] MEDS ORDERED: Potassium Phosphate 15 MM in NS 275 ML IV ONE (21:00)
[2017-10-31] MEDS: Zolpidem 5mg tab ORAL PRN (21:01)
[2017-11-01] VITALS: BP 112/61
--- NOTE | 2017-11-01 01:00 | Consultation ---
DATE OF CONSULTATION: 10/31/2017 CARDIOLOGY CONSULTATION CONSULTING PHYSICIAN: Bishop Mendez M.D. REFERRING PHYSICIAN: Melodie Hutton M.D. REASON FOR CONSULTATION: Management of tachycardia. HISTORY OF PRESENT ILLNESS: This is a very unfortunate 77-year-old gentleman, who presents to the emergency department for evaluation and management for urinary retention. The patient apparently had trouble urinating, went to see his urologist who placed a Jeffries catheter. The patient then went home and 12 hours after the Jeffries placement, became diaphoretic and had a near syncopal event. He was hypotensive in field. After arrival of paramedics, was given intravenous fluids. He was having fever. At the time of arrival to the hospital, he did not have any chest pain or shortness of breath. Cardiology consultation was made at the request of Dr. Hutton for management of tachycardia. A 12-lead electrocardiogram done in the emergency department revealed sinus tachycardia with no ST and T-wave abnormalities. He was admitted to [facility] for further evaluation and management of urinary retention and the patient also was found to have urinary tract infection. PAST MEDICAL HISTORY: Diabetes mellitus, hypertension, and benign prostatic hyperplasia. PAST SURGICAL HISTORY: Prostatectomy. MEDICATIONS: List of medication acetaminophen 650 mg q. 6h. p.r.n. pain and temperature over 101, aspirin 81 mg p.o. daily, atorvastatin 10 mg p.o. at bedtime, metformin 500 mg daily, hydrochlorothiazide 20/12.5 mg one tablet daily, Zantac 150 mg daily, Flomax 0.4 mg p.o. daily, and Ambien 5 mg p.o. at bedtime p.r.n. insomnia. FAMILY HISTORY: No premature coronary artery disease in the first-degree relatives. SOCIAL HISTORY: Denies any tobacco, alcohol, or illicit drug use. REVIEW OF SYSTEMS: HEENT: Denies any headache, diplopia, or blurred vision. CONSTITUTIONAL: Denies any fever, chills, and night sweats. CVS: Denies any chest pain, shortness breath, PND, orthopnea, or leg swelling. PULMONARY: Denies any cough, hemoptysis, or wheezing. GASTROINTESTINAL: Denies any nausea, vomiting, diarrhea, constipation, abdominal pain, or GI bleed. GENITOURINARY: Trouble with urinary retention. NEUROLOGY: Denies any motor dysfunction, sensory deficit, or altered speech. PHYSICAL EXAMINATION: VITAL SIGNS: Blood pressure at the time of arrival to the hospital was 99/55, pulse of 103, respirations of 20, and O2 saturation of 100% on room air. GENERAL: The patient is a very unfortunate 77-year-old gentleman, who is in no apparent respiratory distress. Alert and oriented x4. HEENT: Atraumatic and normocephalic. Anicteric. Pupils are equal, round, and reactive to light and accommodation. Extraocular muscles intact. NECK: JVP less than 5 cm. No carotid bruit. Carotid upstrokes 2+ bilaterally. CVS: Normal S1, S2. Regular rate and rhythm. No murmurs, gallops, or rubs. PMI is at fourth intercostal space in the midclavicular line. Tachycardic. LUNGS: Clear to auscultation bilaterally. ABDOMEN: Soft, nontender, and nondistended. No hepatosplenomegaly. Positive bowel sounds. EXTREMITIES: No evidence of edema, clubbing, or cyanosis. DIAGNOSTIC DATA: Chest x-ray showed mild bilateral interstitial edema versus infiltration. LABORATORY AND DIAGNOSTIC DATA: WBC 7.6, hemoglobin 11.1, hematocrit of 33.1, and platelet count is 234,000. There was 11% bandemia. Sodium 136, potassium is 4.4, chloride 105, bicarbonate 22, BUN of 22, and creatinine 2.0. Glucose 127. Calcium is 9.0. Troponin I is 0.06. ProBNP was 210. A 12-lead electrocardiogram shows sinus tachycardia at the rate of 104 with normal axis. There is right bundle-branch block. ASSESSMENT AND PLAN: The patient is a very unfortunate 77-year-old gentleman seen in Cardiology consultation. 1. Sinus tachycardia. This is most likely due to urinary tract infection and fever. The treatment of sinus tachycardia is the treatment of the underlying etiology. In this patient, intravenous antibiotic and hydration assay of therapy. 2. History of benign prostatic hyperplasia, status post prostatectomy. 3. Acute kidney injury. Creatinine at the time of arrival was 2.0. After hydration, has dropped to 1.8. We will continue with hydration with normal saline. 4. Presyncope likely due to increased insensible loss with fever and also hypovolemia following surgery. 5. Hydration with normal saline. 6. The patient's magnesium also needs to be replenished. 7. Other electrolyte deficiencies needs to be corrected. I would like to thank, Dr. Hutton, for the courtesy of this consultation. Bishop Mendez M.D. DR: LACEY JOB#: [id number] CC:
[2017-11-01 04:00] VITALS: BP 120/62
[2017-11-01] MEDS: NovoLOG Insulin Flexpen SUBQ SCH ×4 (06:30→20:13)
[2017-11-01 08:00] VITALS: BP 117/71
[2017-11-01] MEDS: Meropenem 1 GM in NS 110 ML IVPB SCH ×2 (08:31→17:59)
[2017-11-01] MEDS: Aspirin EC 81mg tab ORAL SCH (08:32)
[2017-11-01] MEDS: Tamsulosin 0.4mg cap ORAL SCH (08:32)
[2017-11-01] MEDS ORDERED: hydroCHLOROthiazide 12.5mg TAB ORAL SCH (09:00)
[2017-11-01] MEDS ORDERED: metFORMIN 500mg tab ORAL SCH (09:00)
--- NOTE | 2017-11-01 09:15 | General Progress Note ---
Assessment/Plan Status: stable Assessment/Plan 1. Sepsis- HCA- Gr negative 2. UTI 3. Acute encephalopathy 4. Benign prostatic hypertrophy, S/P instrumentation 5. Diabetes type 2. 6. Hypertension. 7. Hypercholesterolemia. 8. GI-DVT prophylaxis Plan: C/w empirical abx urology Dr Rose add protonix and lovenox prophylaxis Subjective ROS Limited/Unobtainable: Yes Allergies: Coded Allergies: NO KNOWN DRUG ALLERGIES (Unverified Allergy, Unknown, 10/31/17) Uncoded Allergies: NO KNOWN DRUG ALLERGY (Allergy, Unknown, 01/19/15) Objective Last 24 Hour Vital Signs Date Time Temp Pulse Resp B/P (MAP) Pulse Ox O2 Delivery O2 Flow Rate FiO2 11/01/17 08:00 97.5 91 19 117/71 97 Nasal Cannula 3.0 97.5 11/01/17 04:00 98.4 93 24 120/62 97 Nasal Cannula 3.0 98.4 11/01/17 03:37 98.7 11/01/17 03:28 99 11/01/17 00:00 98.7 99 24 112/61 97 Nasal Cannula 3.0 98.7 10/31/17 23:51 100 10/31/17 20:00 96 10/31/17 20:00 99.0 98 24 108/59 98 Venturi Mask 10.0 50 99.0 10/31/17 19:36 Nasal Cannula 3.0 32 10/31/17 19:36 97 Nasal Cannula 3.0 32 10/31/17 16:00 109 10/31/17 16:00 98.1 97 24 113/47 97 Venturi Mask 10.0 50 98.1 10/31/17 12:04 98 10/31/17 12:00 97.9 97 22 154/63 97 Venturi Mask 10.0 50 97.9 Intake and Output 10/31/17 11/01/17 19:00 07:00 Intake Total 1200 ml 480.002 ml Output Total 600 ml 500 ml Balance 600 ml -19.998 ml Intake Oral 1200 ml IV Total 480.002 ml Output Urine Total 600 ml 500 ml Height (Feet): 5 Height (Inches): 7.00 Weight (Pounds): 150 General Appearance: no apparent distress EENT: PERRL/EOMI Neck: supple Cardiovascular: normal rate Respiratory/Chest: lungs clear Abdomen: soft Extremities: non-tender, other - no gross focal tenderness 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
[2017-11-01 09:52] LABS: HEMATOCRIT 33.3 % (42.0-52.0); HEMOGLOBIN 11.2 G/DL (14.2-18.0); MEAN CORPUSCULAR VOLUME 94 FL (80-99); PLATELET COUNT 160 K/UL (150-450); RED BLOOD COUNT 3.56 M/UL (4.70-6.10); RED CELL DISTRIBUTION WIDTH 11.5 % (11.6-14.8); WHITE BLOOD COUNT 9.4 K/UL (4.8-10.8)
[2017-11-01 10:20] LABS: ANION GAP 10 mmol/L (5-15); BLOOD UREA NITROGEN 24 mg/dL (7-18); CALCIUM 8.6 MG/DL (8.5-10.1); CARBON DIOXIDE 23 MMOL/L (21-32); CHLORIDE 102 MMOL/L (98-107); CREATININE 1.4 MG/DL (0.55-1.30); POTASSIUM 3.8 MMOL/L (3.5-5.1); SODIUM 135 MMOL/L (136-145)
--- NOTE | 2017-11-01 10:24 | Consultation ---
Consult Note Consult Note asked to eval for renal failure chart reviewed patient interviewed and examined 77-year-old male presents ED for evaluation. Patient brought in by EMS. Family at bedside states the patient had prostate surgery yesterday. Was seen by urologist this morning as patient could not urinate and he placed a Aceves catheter. Patient was brought home today and tonight patient became diaphoretic and had near syncopal episode. Hypotensive in field. Given IV fluids. Febrile in triage. Denies chest pain or shortness of breath. Denies nausea or vomiting. PMD is Dr. Wade. No other aggravating or relieving factors. Denies any other associated symptoms Assessment/Plan Acute renal failure- improving post aceves and discontinuation of HCTZ 1. Fever. 2. Near syncope. 3. Probable sepsis. 4. Benign prostatic hypertrophy. 5. Diabetes type 2. 6. Hypertension. 7. Hypercholesterolemia. Plan: Check renal parameters and electrolytes Per orders SHARRON ANTHONY Nov 01, 2017 10:23
[2017-11-01 11:10] LABS: ALANINE AMINOTRANSFERASE 88 U/L (12-78); ALBUMIN 2.7 G/DL (3.4-5.0); ALKALINE PHOSPHATASE 43 U/L (46-116); ASPARTATE AMINO TRANSFERASE 195 U/L (15-37); BILIRUBIN,DIRECT 0.2 MG/DL (0.0-0.3); BILIRUBIN,TOTAL 0.7 MG/DL (0.2-1.0)
[2017-11-01 12:00] VITALS: BP 118/63
[2017-11-01 16:00] VITALS: BP 125/68
[2017-11-01 20:00] VITALS: BP 153/68
[2017-11-01] MEDS: Zolpidem 5mg tab ORAL PRN (20:12)
--- NOTE | 2017-11-01 23:05 | Cardiology Progress Note ---
Assessment/Plan Assessment/Plan 1. Sinus tachycardia. This is most likely due to urinary tract infection and fever. The treatment of sinus tachycardia is the treatment of the underlying etiology. Continue IV ABx therapy as well as hydration. 2. Acute kidney injury. Creatinine down to 1.4 3. Presyncope likely due to increased insensible loss with fever and also hypovolemia following surgery, advise hydration. 2D echo reveals normal LV systolic function. Subjective Subjective Sinus rhythm at 86. Objective Last 24 Hour Vital Signs Date Time Temp Pulse Resp B/P (MAP) Pulse Ox O2 Delivery O2 Flow Rate FiO2 11/01/17 16:00 99.5 88 19 125/68 96 Nasal Cannula 2.0 99.5 11/01/17 16:00 86 11/01/17 12:00 98.2 94 19 118/63 96 Nasal Cannula 3.0 98.2 11/01/17 11:47 94 11/01/17 08:00 97.5 91 19 117/71 97 Nasal Cannula 3.0 97.5 11/01/17 07:53 89 11/01/17 04:00 98.4 93 24 120/62 97 Nasal Cannula 3.0 98.4 11/01/17 03:37 98.7 11/01/17 03:28 99 11/01/17 00:00 98.7 99 24 112/61 97 Nasal Cannula 3.0 98.7 10/31/17 23:51 100 Intake and Output 10/31/17 11/01/17 19:00 07:00 Intake Total 1200 ml 480.002 ml Output Total 600 ml 500 ml Balance 600 ml -19.998 ml Intake Oral 1200 ml IV Total 480.002 ml Output Urine Total 600 ml 500 ml 2D Echo: EF 65%, Mild RVE, Mild AR/MR, RVSP 50 mmHg, Grade I LVDD, Mild [place] Laboratory Tests Test 11/01/17 09:00 White Blood Count 9.4 K/UL (4.8-10.8) Red Blood Count 3.56 M/UL (4.70-6.10) L Hemoglobin 11.2 G/DL (14.2-18.0) L Hematocrit 33.3 % (42.0-52.0) L Mean Corpuscular Volume 94 FL (80-99) Mean Corpuscular Hemoglobin 31.5 PG (27.0-31.0) H Mean Corpuscular Hemoglobin Concent 33.7 G/DL (32.0-36.0) Red Cell Distribution Width 11.5 % (11.6-14.8) L Platelet Count 160 K/UL (150-450) Mean Platelet Volume 6.5 FL (6.5-10.1) Neutrophils (%) (Auto) % (45.0-75.0) Lymphocytes (%) (Auto) % (20.0-45.0) Monocytes (%) (Auto) % (1.0-10.0) Eosinophils (%) (Auto) % (0.0-3.0) Basophils (%) (Auto) % (0.0-2.0) Differential Total Cells Counted 100 Neutrophils % (Manual) 84 % (45-75) H Lymphocytes % (Manual) 8 % (20-45) L Monocytes % (Manual) 6 % (1-10) Eosinophils % (Manual) 0 % (0-3) Basophils % (Manual) 0 % (0-2) Band Neutrophils 2 % (0-8) Platelet Estimate Adequate Platelet Morphology Normal Red Blood Cell Morphology Normal Sodium Level 135 MMOL/L (136-145) L Potassium Level 3.8 MMOL/L (3.5-5.1) Chloride Level 102 MMOL/L (98-107) Carbon Dioxide Level 23 MMOL/L (21-32) Anion Gap 10 mmol/L (5-15) Blood Urea Nitrogen 24 mg/dL (7-18) H Creatinine 1.4 MG/DL (0.55-1.30) H Estimat Glomerular Filtration Rate mL/min (>60) Glucose Level 143 MG/DL (74-106) H Uric Acid 3.9 MG/DL (2.6-7.2) Calcium Level 8.6 MG/DL (8.5-10.1) Phosphorus Level 3.0 MG/DL (2.5-4.9) Magnesium Level 1.8 MG/DL (1.8-2.4) Total Bilirubin 0.7 MG/DL (0.2-1.0) Direct Bilirubin 0.2 MG/DL (0.0-0.3) Aspartate Amino Transf (AST/SGOT) 195 U/L (15-37) H Alanine Aminotransferase (ALT/SGPT) 88 U/L (12-78) H Alkaline Phosphatase 43 U/L (46-116) L C-Reactive Protein, Quantitative < 70.0 mg/dL (0.00-0.90) H Total Protein 6.2 G/DL (6.4-8.2) L Albumin 2.7 G/DL (3.4-5.0) L Microbiology Date/Time Source Procedure Growth Status 10/31/17 11:15 Blood Blood Culture - Preliminary Resulted 10/31/17 11:08 Blood Blood Culture - Preliminary Resulted 10/30/17 18:50 Blood Blood Culture - Preliminary Gram Negative Kvng Resulted 10/30/17 18:40 Blood Blood Culture - Preliminary Gram Negative Kvng Resulted 10/30/17 19:30 Urine,Clean Catch Urine Culture - Preliminary Gram Negative Kvng Resulted Objective HEENT: Atraumatic and normocephalic. Anicteric. Pupils are equal, round, and reactive to light and accommodation. Extraocular muscles intact. NECK: JVP less than 5 cm. No carotid bruit. Carotid upstrokes 2+ bilaterally. CVS: Normal S1, S2. Regular rate and rhythm. No murmurs, gallops, or rubs. PMI is at fourth intercostal space in the midclavicular line. LUNGS: Clear to auscultation bilaterally. ABDOMEN: Soft, nontender, and nondistended. No hepatosplenomegaly. Positive bowel sounds. EXTREMITIES: No evidence of edema, clubbing, or cyanosis. CHUY WALLACE Nov 01, 2017 23:05
--- NOTE | 2017-11-01 23:31 | Pulmonology Progress Note ---
Assessment/Plan Assessment/Plan Patient: COLEMAN IVEY Rec #: [id number] Patient No.: [id number] Date of Admission: 10/30/17 Progress Note date and time: 10/31/17 1710 Critical Care - Asmt/Plan Assessment/Plan: HPI 77 y/o M presents c/p fever, fainting episode, note s/p recent prostate surgery , noted to have Gram Negative Rods on Blood Cultures. PMH of DM2, HTN. On the morning of admission patient was seen by urologist and aceves catheter was placed as patient was unable to void. Was found to be hypotensive by EMS which responded to IVFs. Fevers to 102.5 noted. Denies CP, SOB, n/v/d. Allergies: Coded Allergies: NO KNOWN DRUG ALLERGIES (Unverified Allergy, Unknown, 10/31/17) Uncoded Allergies: NO KNOWN DRUG ALLERGY (Allergy, Unknown, 01/19/15) Medication History Scheduled Aspirin (Aspirin EC), 81 MG PO DAILY, (Reported) Atorvastatin Calcium* (Lipitor*), 10 MG PO DAILY, (Reported) Metformin Hcl* (Glucophage*), 500 MG PO DAILY, (Reported) Olmesartan/Hydrochlorothiazide 20-12.5 (Benicar Hct 20-12.5 Mg Tablet), 1 EACH PO DAILY, (Reported) Ranitidine Hcl* (Zantac*), 150 MG PO DAILY, (Reported) Tamsulosin HCl (Flomax), 0.4 MG PO DAILY, (Reported) Scheduled PRN Acetaminophen (Acetaminophen), 650 MG ORAL Q6H PRN for Prn Headache/Temp > 101, (Reported) Zolpidem Tartrate* (Ambien*), 5 MG ORAL BEDTIME PRN for Insomnia, (Reported) Patient History Healthcare decision maker Resuscitation status Full Code Advanced Directive on File Patient History Narrative Pmx: as above Shx: Denies: smoking, alcohol use, drug use Fhx: non contributory Review of Systems All Other Systems: negative except mentioned in HPI Physical Exam Physical Exam Narrative General Appearance: no apparent distress, alert HEENT normocephalic, atraumatic, PERR, normal pharynx Neck: full range of motion, supple/symm/no masses Respiratory: chest non-tender, lungs clear, normal breath sounds, speaking full sentences Cardiovascular : regular rate, rhythm, no edema Gastrointestinal: normal bowel sounds, non tender, soft, non-distended, no guarding, no rebound Genitourinary: normal inspection, no CVA tenderness Musculoskeletal: back normal, gait/station normal, normal range of motion, non- tender Neurologic: alert, oriented x3, responsive, motor strength/tone normal, sensory intact, speech normal Skin: normal color, no rash, warm/dry, well hydrated Last 24 Hour Vital Signs Date Time Temp Pulse Resp B/P (MAP) Pulse Ox O2 Delivery O2 Flow Rate FiO2 10/31/17 08:15 20 95 Venturi Mask 10.0 50 10/31/17 08:15 98.4 99 20 113/68 95 Nasal Cannula 98.4 10/31/17 04:12 136 10/31/17 04:00 100.6 136 36 115/66 94 Venturi Mask 50 100.6 10/31/17 04:00 115 10/31/17 03:55 100.6 10/31/17 02:44 102.5 10/31/17 01:40 140 10/31/17 00:00 102.6 115 22 108/72 96 Room Air 102.6 10/30/17 23:40 97.7 86 23 101/53 96 Room Air 102.0 10/30/17 23:30 86 23 101/53 96 Room Air 10/30/17 21:30 97 24 101/53 95 Room Air 10/30/17 20:30 104 23 128/111 95 Room Air 10/30/17 20:17 102.0 10/30/17 19:30 104 21 109/59 96 Room Air 10/30/17 19:18 102.0 10/30/17 18:19 102 20 99/55 100 Room Air Intake and Output 10/30/17 10/31/17 19:00 07:00 Output Total 50 ml Balance -50 ml Output Urine Total 50 ml # Bowel Movements 1 Laboratory Tests Test 10/30/17 18:40 10/30/17 19:30 10/31/17 04:14 10/31/17 09:08 White Blood Count 7.6 K/UL (4.8-10.8) 8.6 K/UL (4.8-10.8) Red Blood Count 3.56 M/UL (4.70-6.10) L 3.43 M/UL (4.70-6.10) L Hemoglobin 11.1 G/DL (14.2-18.0) L 10.8 G/DL (14.2-18.0) L Hematocrit 33.1 % (42.0-52.0) L 32.1 % (42.0-52.0) L Mean Corpuscular Volume 93 FL (80-99) 93 FL (80-99) Mean Corpuscular Hemoglobin 31.1 PG (27.0-31.0) H 31.5 PG (27.0-31.0) H Mean Corpuscular Hemoglobin Concent 33.5 G/DL (32.0-36.0) 33.7 G/DL (32.0-36.0) Red Cell Distribution Width 11.7 % (11.6-14.8) 11.6 % (11.6-14.8) Platelet Count 234 K/UL (150-450) 194 K/UL (150-450) Mean Platelet Volume 6.5 FL (6.5-10.1) 6.8 FL (6.5-10.1) Neutrophils (%) (Auto) % (45.0-75.0) % (45.0-75.0) Lymphocytes (%) (Auto) % (20.0-45.0) % (20.0-45.0) Monocytes (%) (Auto) % (1.0-10.0) % (1.0-10.0) Eosinophils (%) (Auto) % (0.0-3.0) % (0.0-3.0) Basophils (%) (Auto) % (0.0-2.0) % (0.0-2.0) Sodium Level 136 MMOL/L (136-145) 138 MMOL/L (136-145) Potassium Level 4.4 MMOL/L (3.5-5.1) 3.6 MMOL/L (3.5-5.1) Chloride Level 105 MMOL/L (98-107) 103 MMOL/L (98-107) Carbon Dioxide Level 22 MMOL/L (21-32) 20 MMOL/L (21-32) L Anion Gap 9 mmol/L (5-15) 15 mmol/L (5-15) Blood Urea Nitrogen 22 mg/dL (7-18) H 20 mg/dL (7-18) H Creatinine 2.0 MG/DL (0.55-1.30) H 1.8 MG/DL (0.55-1.30) H Estimat Glomerular Filtration Rate mL/min (>60) mL/min (>60) Glucose Level 127 MG/DL (74-106) H 151 MG/DL (74-106) H Lactic Acid Level 2.40 mmol/L (0.66-2.22) H Calcium Level 9.0 MG/DL (8.5-10.1) 8.8 MG/DL (8.5-10.1) Total Bilirubin 0.7 MG/DL (0.2-1.0) Aspartate Amino Transf (AST/SGOT) 20 U/L (15-37) Alanine Aminotransferase (ALT/SGPT) 24 U/L (12-78) Alkaline Phosphatase 42 U/L (46-116) L Total Creatine Kinase 271 U/L (26-308) Creatine Kinase MB 2.1 NG/ML (0.0-3.6) Creatine Kinase MB Relative Index 0.7 Troponin I 0.016 ng/mL (0.000-0.056) Pro-B-Type Natriuretic Peptide 210 pg/mL (0-125) H Total Protein 7.2 G/DL (6.4-8.2) Albumin 3.5 G/DL (3.4-5.0) Globulin 3.7 g/dL Albumin/Globulin Ratio 0.9 (1.0-2.7) L Urine Color Yellow Urine Appearance Slightly cloudy Urine pH 6 (4.5-8.0) Urine Specific [place] 1.010 (1.005-1.035) Urine Protein 3+ (NEGATIVE) H Urine Glucose (UA) Negative (NEGATIVE) Urine Ketones 2+ (NEGATIVE) H Urine Occult Blood 5+ (NEGATIVE) H Urine Nitrite Negative (NEGATIVE) Urine Bilirubin Negative (NEGATIVE) Urine Urobilinogen 1 MG/DL (0.0-1.0) H Urine Leukocyte Esterase 3+ (NEGATIVE) H Urine RBC 15-20 /HPF (0 - 0) H Urine WBC 10-15 /HPF (0 - 0) H Urine Squamous Epithelial Cells None /LPF (NONE/OCC) Urine Bacteria Moderate /HPF (NONE) H Urine Yeast Few /HPF (NONE) H Arterial Blood pH 7.364 (7.350-7.450) Arterial Blood Partial Pressure CO2 25.7 mmHg (35.0-45.0) L Arterial Blood Partial Pressure O2 187.9 mmHg (75.0-100.0) H Arterial Blood HCO3 14.3 mmol/L (22.0-26.0) L Arterial Blood Oxygen Saturation 98.5 % (92.0-98.0) H Arterial Blood Base Excess -9.4 Mateusz Test Positive Neutrophils % (Manual) Pending Lymphocytes % (Manual) Pending Platelet Estimate Pending Platelet Morphology Pending Hemoglobin A1c Pending Phosphorus Level 1.5 MG/DL (2.5-4.9) L Magnesium Level 1.0 MG/DL (1.8-2.4) L Microbiology Date/Time Source Procedure Growth Status 10/30/17 18:50 Blood Blood Culture - Preliminary Resulted 10/30/17 18:40 Blood Blood Culture - Preliminary Resulted 10/30/17 19:30 Urine,Clean Catch Urine Culture - Preliminary Resulted Height (Feet): 5 Height (Inches): 7.00 Weight (Pounds): 150 Medications Current Medications Medications (Trade) Dose Ordered Sig/Bryanna Route PRN Reason Start Time Stop Time Status Last Admin Dose Admin Acetaminophen (Tylenol) 650 mg Q4H PRN ORAL Mild Pain/Temp > 100.5 10/31/17 02:00 11/30/17 01:59 10/31/17 02:44 Aspirin (Ecotrin) 81 mg DAILY ORAL 10/31/17 09:00 11/30/17 08:59 10/31/17 09:39 Atorvastatin Calcium (Lipitor) 10 mg QHS ORAL 10/31/17 21:00 11/30/17 20:59 Dextrose (Dextrose 50%) STAT PRN IV Hypoglycemia 10/31/17 00:45 11/30/17 00:44 Hydrochlorothiazide (Hydrodiuril) 12.5 mg DAILY ORAL 10/31/17 09:00 11/30/17 08:59 10/31/17 09:39 Insulin Aspart (NovoLOG) BEFORE MEALS AND HS SUBQ 10/31/17 06:30 11/30/17 06:29 Metformin HCl (Glucophage) 500 mg DAILY ORAL 10/31/17 09:00 11/30/17 08:59 UNV Piperacillin Sod/ Tazobactam Sod 3.375 gm/Dextrose 110 ml @ 27.5 mls/hr EVERY 8 HOURS IVPB 10/31/17 06:00 11/05/17 05:59 10/31/17 05:32 Tamsulosin HCl (Flomax) 0.4 mg DAILY ORAL 10/31/17 09:00 11/30/17 08:59 10/31/17 09:39 Zolpidem Tartrate (Ambien) 5 mg BEDTIME PRN ORAL Insomnia 10/31/17 00:45 11/07/17 00:44 10/31/17 01:51 Assessment/Plan Assessment: Sepsis/fevers secondary to GNR bacteremia likely translocation from recent urologic procedure - r/o ESBL -Bcx 10/30 10/11 GNRs -u/a wbc 10-15, nit neg, leuk +3; ucx p Acute resp distress: CXR: Mild central pulmonary vascular congestion is noted. There is mild atelectasis. No pleural effusions are identified. Avoid excessive positive fluid balance Pre syncope- likely due to hypotension -CT head: no acute findings. Urinary retention s/p Aceves placeemnt 10/30 S/p prostate surgery 10/29 DM2 HTN Sepsis much improved Plan: Continue Antibiotics per ID Meropenem for ESBL coverage pending ID and sensi GNRs -Monitor labs - PRN Oxygen - Triflo - DVT prophyllaxis Thank you for this consultation. Discussed with RN. Critical Care - Objective Last 24 Hour Vital Signs Date Time Temp Pulse Resp B/P (MAP) Pulse Ox O2 Delivery O2 Flow Rate FiO2 10/31/17 12:04 98 10/31/17 12:00 97.9 97 22 154/63 97 Venturi Mask 10.0 50 97.9 10/31/17 08:15 20 95 Venturi Mask 10.0 50 10/31/17 08:15 98.4 99 20 113/68 95 Nasal Cannula 98.4 10/31/17 08:00 110 10/31/17 04:12 136 10/31/17 04:00 100.6 136 36 115/66 94 Venturi Mask 50 100.6 10/31/17 04:00 115 10/31/17 03:55 100.6 10/31/17 02:44 102.5 10/31/17 01:40 140 10/31/17 00:00 102.6 115 22 108/72 96 Room Air 102.6 10/30/17 23:40 97.7 86 23 101/53 96 Room Air 102.0 10/30/17 23:30 86 23 101/53 96 Room Air 10/30/17 21:30 97 24 101/53 95 Room Air 10/30/17 20:30 104 23 128/111 95 Room Air 10/30/17 20:17 102.0 10/30/17 19:30 104 21 109/59 96 Room Air 10/30/17 19:18 102.0 10/30/17 18:19 102 20 99/55 100 Room Air Micro: Microbiology Date/Time Source Procedure Growth Status 10/30/17 18:50 Blood Blood Culture - Preliminary Resulted 10/30/17 18:40 Blood Blood Culture - Preliminary Resulted 10/30/17 19:30 Urine,Clean Catch Urine Culture - Preliminary Resulted Accucheck: 170 Critical Care - Subjective ROS Limited/Unobtainable: Yes Condition: unchanged EKG Rhythm: Sinus Rhythm FI02: 50 I&O: Intake and Output 10/30/17 10/31/17 19:00 07:00 Output Total 50 ml Balance -50 ml Output Urine Total 50 ml # Bowel Movements 1 Subjective ROS Limited/Unobtainable: Yes Allergies: Coded Allergies: NO KNOWN DRUG ALLERGIES (Unverified Allergy, Unknown, 10/31/17) Uncoded Allergies: NO KNOWN DRUG ALLERGY (Allergy, Unknown, 01/19/15) All Systems: reviewed and negative except above Objective Last 24 Hour Vital Signs Date Time Temp Pulse Resp B/P (MAP) Pulse Ox O2 Delivery O2 Flow Rate FiO2 11/01/17 20:00 98.2 94 20 153/68 97 Nasal Cannula 2.0 98.2 11/01/17 20:00 104 11/01/17 16:00 99.5 88 19 125/68 96 Nasal Cannula 2.0 99.5 11/01/17 16:00 86 11/01/17 12:00 98.2 94 19 118/63 96 Nasal Cannula 3.0 98.2 11/01/17 11:47 94 11/01/17 08:00 97.5 91 19 117/71 97 Nasal Cannula 3.0 97.5 11/01/17 07:53 89 11/01/17 04:00 98.4 93 24 120/62 97 Nasal Cannula 3.0 98.4 11/01/17 03:37 98.7 11/01/17 03:28 99 11/01/17 00:00 98.7 99 24 112/61 97 Nasal Cannula 3.0 98.7 10/31/17 23:51 100 Intake and Output 10/31/17 11/01/17 19:00 07:00 Intake Total 1200 ml 480.002 ml Output Total 600 ml 500 ml Balance 600 ml -19.998 ml Intake Oral 1200 ml IV Total 480.002 ml Output Urine Total 600 ml 500 ml Microbiology Date/Time Source Procedure Growth Status 10/31/17 11:15 Blood Blood Culture - Preliminary Resulted 10/31/17 11:08 Blood Blood Culture - Preliminary Resulted 10/30/17 18:50 Blood Blood Culture - Preliminary Gram Negative Kvng Resulted 10/30/17 18:40 Blood Blood Culture - Preliminary Gram Negative Kvng Resulted 10/30/17 19:30 Urine,Clean Catch Urine Culture - Preliminary Gram Negative Kvng Resulted Laboratory Tests 11/01/17 09:00: White Blood Count 9.4, Red Blood Count 3.56L, Hemoglobin 11.2L, Hematocrit 33.3L , Mean Corpuscular Volume 94, Mean Corpuscular Hemoglobin 31.5H, Mean Corpuscular Hemoglobin Concent 33.7, Red Cell Distribution Width 11.5L, Platelet Count 160, Mean Platelet Volume 6.5, Neutrophils (%) (Auto) , Lymphocytes (%) (Auto) , Monocytes (%) (Auto) , Eosinophils (%) (Auto) , Basophils (%) (Auto) , Differential Total Cells Counted 100, Neutrophils % ( Manual) 84H, Lymphocytes % (Manual) 8L, Monocytes % (Manual) 6, Eosinophils % ( Manual) 0, Basophils % (Manual) 0, Band Neutrophils 2, Platelet Estimate Adequate, Platelet Morphology Normal, Red Blood Cell Morphology Normal, Sodium Level 135L, Potassium Level 3.8, Chloride Level 102, Carbon Dioxide Level 23, Anion Gap 10, Blood Urea Nitrogen 24H, Creatinine 1.4H, Estimat Glomerular Filtration Rate , Glucose Level 143H, Uric Acid 3.9, Calcium Level 8.6, Phosphorus Level 3.0, Magnesium Level 1.8, Total Bilirubin 0.7, Direct Bilirubin 0.2, Aspartate Amino Transf (AST/SGOT) 195H, Alanine Aminotransferase (ALT/SGPT) 88H, Alkaline Phosphatase 43L, C-Reactive Protein, Quantitative < 70.0H, Total Protein 6.2L, Albumin 2.7L Current Medications Medications (Trade) Dose Ordered Sig/Bryanna Route PRN Reason Start Time Stop Time Status Last Admin Dose Admin Acetaminophen (Tylenol) 650 mg Q4H PRN ORAL Mild Pain/Temp > 100.5 10/31/17 12:30 11/30/17 12:29 11/01/17 02:32 Aspirin (Ecotrin) 81 mg DAILY ORAL 11/01/17 09:00 11/30/17 08:59 11/01/17 08:32 Atorvastatin Calcium (Lipitor) 10 mg QHS ORAL 10/31/17 21:00 11/30/17 20:59 11/01/17 20:12 Dextrose (Dextrose 50%) STAT PRN IV Hypoglycemia 10/31/17 12:30 11/30/17 12:29 Insulin Aspart (NovoLOG) BEFORE MEALS AND HS SUBQ 10/31/17 12:30 11/30/17 12:29 11/01/17 20:13 Lansoprazole (Prevacid) 30 mg DAILY ORAL 11/01/17 11:00 12/01/17 10:59 11/01/17 11:36 Meropenem 1 gm/ Sodium Chloride 110 ml @ 220 mls/hr Q12HR@0600,1800 IVPB 10/31/17 16:30 11/05/17 16:29 11/01/17 17:59 Patient Own Medication (Patient's Own Med) 1 ea QID BOTH EYES 11/02/17 09:00 12/02/17 08:59 Patient Own Medication (Patient's Own Med) 2 ea BID BOTH EYES 11/02/17 09:00 12/02/17 08:59 Tamsulosin HCl (Flomax) 0.4 mg DAILY ORAL 11/01/17 09:00 11/30/17 08:59 11/01/17 08:32 Zolpidem Tartrate (Ambien) 5 mg HSPRN PRN ORAL Insomnia 10/31/17 21:00 11/07/17 20:59 11/01/17 20:12 Kurtis Carlos M.D. Nov 01, 2017 23:31
[2017-11-02] VITALS: BP 145/78
[2017-11-02 04:00] VITALS: BP 139/73
[2017-11-02 04:40] LABS: BASOPHILS % (AUTO) 0.4 % (0.0-2.0); EOSINOPHILS % (AUTO) 0.4 % (0.0-3.0); LYMPHOCYTES % (AUTO) 13.2 % (20.0-45.0); MEAN CORPUSCULAR VOLUME 92 FL (80-99); MONOCYTES % (AUTO) 7.3 % (1.0-10.0); NEUTROPHILS % (AUTO) 78.8 % (45.0-75.0); PLATELET COUNT 175 K/UL (150-450); RED BLOOD COUNT 3.46 M/UL (4.70-6.10); RED CELL DISTRIBUTION WIDTH 11.4 % (11.6-14.8); WHITE BLOOD COUNT 7.9 K/UL (4.8-10.8)
[2017-11-02] MEDS: Meropenem 1 GM in NS 110 ML IVPB SCH (05:00)
[2017-11-02 05:20] LABS: GAMMA GLUTAMYL TRANSPEPTIDASE 48 U/L (5-85)
[2017-11-02 05:25] LABS: % IRON SATURATION 5 % (15-50); IRON 14 ug/dL (50-175); TOTAL IRON BINDING CAPACITY 265 ug/dL (250-450)
[2017-11-02] MEDS: NovoLOG Insulin Flexpen SUBQ SCH ×4 (05:46→21:46)
[2017-11-02 06:31] LABS: ALANINE AMINOTRANSFERASE 105 U/L (12-78); ALBUMIN 2.8 G/DL (3.4-5.0); ALBUMIN/GLOBULIN RATIO 0.7 (1.0-2.7); ALKALINE PHOSPHATASE 53 U/L (46-116); ANION GAP 12 mmol/L (5-15); ASPARTATE AMINO TRANSFERASE 156 U/L (15-37); BILIRUBIN,TOTAL 0.7 MG/DL (0.2-1.0); BLOOD UREA NITROGEN 20 mg/dL (7-18); CALCIUM 8.9 MG/DL (8.5-10.1); CARBON DIOXIDE 23 MMOL/L (21-32); CHLORIDE 99 MMOL/L (98-107); CHOLESTEROL 102 MG/DL (< 200); CREATININE 1.4 MG/DL (0.55-1.30); FERRITIN 175 NG/ML (8-388); HDL CHOLESTEROL 7 MG/DL (40-60); POTASSIUM 3.9 MMOL/L (3.5-5.1); SODIUM 134 MMOL/L (136-145); TRIGLYCERIDES 185 MG/DL (30-150)
[2017-11-02 08:00] VITALS: BP 128/69
[2017-11-02] MEDS: OPTH BOTH EYES SCH ×2 (09:56→19:42)
[2017-11-02] MEDS: LOTEMAX 0.5% BOTH EYES SCH ×2 (09:56→19:42)
[2017-11-02] MEDS: Aspirin EC 81mg tab ORAL SCH (09:57)
[2017-11-02] MEDS: Tamsulosin 0.4mg cap ORAL SCH (09:58)
--- NOTE | 2017-11-02 10:43 | Consultation ---
History of Present Illness General Date patient seen: Nov 02, 2017 Chief Complaint: Altered Level of Consciousness Present Illness HPI the pt pulled out his cath and attempted to come out if bed. telling this md that he was bored that s why he was coming out of bed. the pt understands that he may not come out of bed and needs to call his nurse Allergies: Coded Allergies: NO KNOWN DRUG ALLERGIES (Unverified Allergy, Unknown, 10/31/17) Uncoded Allergies: NO KNOWN DRUG ALLERGY (Allergy, Unknown, 01/19/15) Medication History Scheduled Aspirin (Aspirin EC), 81 MG PO DAILY, (Reported) Atorvastatin Calcium* (Lipitor*), 10 MG PO DAILY, (Reported) Metformin Hcl* (Glucophage*), 500 MG PO DAILY, (Reported) Olmesartan/Hydrochlorothiazide 20-12.5 (Benicar Hct 20-12.5 Mg Tablet), 1 EACH PO DAILY, (Reported) Ranitidine Hcl* (Zantac*), 150 MG PO DAILY, (Reported) Tamsulosin HCl (Flomax), 0.4 MG PO DAILY, (Reported) Scheduled PRN Acetaminophen (Acetaminophen), 650 MG ORAL Q6H PRN for Prn Headache/Temp > 101, (Reported) Zolpidem Tartrate* (Ambien*), 5 MG ORAL BEDTIME PRN for Insomnia, (Reported) Patient History Limited by: medical condition History Provided By: Patient, Medical Record, PMD Healthcare decision maker Resuscitation status Full Code Advanced Directive on File Review of Systems Psychiatric: Reports: prior hx, anxiety, depressed feelings, emotional problems Physical Exam General Appearance: no apparent distress, alert Neurologic: oriented x 3, responsive, depressed affect Last 24 Hour Vital Signs Date Time Temp Pulse Resp B/P (MAP) Pulse Ox O2 Delivery O2 Flow Rate FiO2 11/02/17 09:16 96 Nasal Cannula 3.0 32 11/02/17 09:16 Nasal Cannula 3.0 32 11/02/17 08:00 98.4 85 19 128/69 97 Nasal Cannula 2.0 98.4 11/02/17 04:00 97 11/02/17 04:00 97.9 90 20 139/73 96 Nasal Cannula 2.0 97.9 11/02/17 00:00 97.7 102 20 145/78 96 Nasal Cannula 2.0 97.7 11/02/17 00:00 99 3/25/18 20:00 98.2 94 20 153/68 97 Nasal Cannula 2.0 98.2 11/01/17 20:00 104 11/01/17 16:00 99.5 88 19 125/68 96 Nasal Cannula 2.0 99.5 11/01/17 16:00 86 11/01/17 12:00 98.2 94 19 118/63 96 Nasal Cannula 3.0 98.2 11/01/17 11:47 94 Intake and Output 11/01/17 11/02/17 19:00 07:00 Intake Total 840 ml 660 ml Output Total 1100 ml 800 ml Balance -260 ml -140 ml Intake Oral 620 ml 550 ml IV Total 220 ml 110 ml Output Urine Total 850 ml 800 ml Stool Total 250 ml # Voids 3 # Bowel Movements 2 Laboratory Tests Test 11/02/17 04:00 White Blood Count 7.9 K/UL (4.8-10.8) Red Blood Count 3.46 M/UL (4.70-6.10) L Hemoglobin 11.0 G/DL (14.2-18.0) L Hematocrit 32.0 % (42.0-52.0) L Mean Corpuscular Volume 92 FL (80-99) Mean Corpuscular Hemoglobin 31.7 PG (27.0-31.0) H Mean Corpuscular Hemoglobin Concent 34.3 G/DL (32.0-36.0) Red Cell Distribution Width 11.4 % (11.6-14.8) L Platelet Count 175 K/UL (150-450) Mean Platelet Volume 7.0 FL (6.5-10.1) Neutrophils (%) (Auto) 78.8 % (45.0-75.0) H Lymphocytes (%) (Auto) 13.2 % (20.0-45.0) L Monocytes (%) (Auto) 7.3 % (1.0-10.0) Eosinophils (%) (Auto) 0.4 % (0.0-3.0) Basophils (%) (Auto) 0.4 % (0.0-2.0) Sodium Level 134 MMOL/L (136-145) L Potassium Level 3.9 MMOL/L (3.5-5.1) Chloride Level 99 MMOL/L (98-107) Carbon Dioxide Level 23 MMOL/L (21-32) Anion Gap 12 mmol/L (5-15) Blood Urea Nitrogen 20 mg/dL (7-18) H Creatinine 1.4 MG/DL (0.55-1.30) H Estimat Glomerular Filtration Rate mL/min (>60) Glucose Level 136 MG/DL (74-106) H Uric Acid 4.0 MG/DL (2.6-7.2) Calcium Level 8.9 MG/DL (8.5-10.1) Magnesium Level 1.5 MG/DL (1.8-2.4) L Iron Level 14 ug/dL (50-175) L Total Iron Binding Capacity 265 ug/dL (250-450) Percent Iron Saturation 5 % (15-50) L Unsaturated Iron Binding 251 ug/dL (112-346) Ferritin 175 NG/ML (8-388) Total Bilirubin 0.7 MG/DL (0.2-1.0) Gamma Glutamyl Transpeptidase 48 U/L (5-85) Aspartate Amino Transf (AST/SGOT) 156 U/L (15-37) H Alanine Aminotransferase (ALT/SGPT) 105 U/L (12-78) H Alkaline Phosphatase 53 U/L (46-116) Troponin I 0.075 ng/mL (0.000-0.056) Pro-B-Type Natriuretic Peptide 581 pg/mL (0-125) H Total Protein 7.1 G/DL (6.4-8.2) Albumin 2.8 G/DL (3.4-5.0) L Globulin 4.3 g/dL Albumin/Globulin Ratio 0.7 (1.0-2.7) L Triglycerides Level 185 MG/DL (30-150) H Cholesterol Level 102 MG/DL (< 200) LDL Cholesterol 59 mg/dL (<100) HDL Cholesterol 7 MG/DL (40-60) L Cholesterol/HDL Ratio 14.6 (3.3-4.4) H Vitamin B12 Level 1413 PG/ML (193-986) H Folate 8.1 NG/ML (8.6-58.9) L Thyroid Stimulating Hormone (TSH) 0.968 uiU/mL (0.358-3.740) Height (Feet): 5 Height (Inches): 7.00 Weight (Pounds): 150 Medications Current Medications Medications (Trade) Dose Ordered Sig/Bryanna Route PRN Reason Start Time Stop Time Status Last Admin Dose Admin Acetaminophen (Tylenol) 650 mg Q4H PRN ORAL Mild Pain/Temp > 100.5 10/31/17 12:30 11/30/17 12:29 11/01/17 02:32 Aspirin (Ecotrin) 81 mg DAILY ORAL 11/01/17 09:00 11/30/17 08:59 11/02/17 09:57 Atorvastatin Calcium (Lipitor) 10 mg QHS ORAL 10/31/17 21:00 11/30/17 20:59 11/01/17 20:12 Dextrose (Dextrose 50%) STAT PRN IV Hypoglycemia 10/31/17 12:30 11/30/17 12:29 Insulin Aspart (NovoLOG) BEFORE MEALS AND HS SUBQ 10/31/17 12:30 11/30/17 12:29 11/02/17 05:46 Lansoprazole (Prevacid) 30 mg DAILY ORAL 11/01/17 11:00 12/01/17 10:59 11/02/17 09:57 Meropenem 1 gm/ Sodium Chloride 110 ml @ 220 mls/hr Q12HR@0600,1800 IVPB 10/31/17 16:30 11/05/17 16:29 11/02/17 05:00 Patient Own Medication (Patient's Own Med) 1 ea QID BOTH EYES 11/02/17 09:00 12/02/17 08:59 11/02/17 10:01 Patient Own Medication (Patient's Own Med) 2 ea BID BOTH EYES 11/02/17 09:00 12/02/17 08:59 11/02/17 09:56 Tamsulosin HCl (Flomax) 0.4 mg DAILY ORAL 11/01/17 09:00 11/30/17 08:59 11/02/17 09:58 Zolpidem Tartrate (Ambien) 5 mg HSPRN PRN ORAL Insomnia 10/31/17 21:00 11/07/17 20:59 11/01/17 20:12 Assessment/Plan Status: stable, progressing Cassius Sebastian M.D. Nov 02, 2017 10:43
[2017-11-02 12:00] VITALS: BP 134/74
[2017-11-02] MEDS ORDERED: Meropenem 1 GM in NS 55 ML IVPB SCH (12:00)
--- NOTE | 2017-11-02 12:06 | Internal Med Progress Note ---
Subjective Date of Service: Nov 02, 2017 Physician Name Eber Schumacher Attending Physician Melodie Hutton MD Current Medications Medications (Trade) Dose Ordered Sig/Bryanna Route PRN Reason Start Time Stop Time Status Last Admin Dose Admin Acetaminophen (Tylenol) 650 mg Q4H PRN ORAL Mild Pain/Temp > 100.5 10/31/17 12:30 11/30/17 12:29 11/01/17 02:32 Aspirin (Ecotrin) 81 mg DAILY ORAL 11/01/17 09:00 11/30/17 08:59 11/02/17 09:57 Atorvastatin Calcium (Lipitor) 10 mg QHS ORAL 10/31/17 21:00 11/30/17 20:59 11/01/17 20:12 Dextrose (Dextrose 50%) STAT PRN IV Hypoglycemia 10/31/17 12:30 11/30/17 12:29 Insulin Aspart (NovoLOG) BEFORE MEALS AND HS SUBQ 10/31/17 12:30 11/30/17 12:29 11/02/17 05:46 Lansoprazole (Prevacid) 30 mg DAILY ORAL 11/01/17 11:00 12/01/17 10:59 11/02/17 09:57 Magnesium Sulfate 100 ml @ 100 mls/hr ONCE ONCE IVPB 11/02/17 12:00 11/02/17 12:59 Meropenem 1 gm/ Sodium Chloride 55 ml @ 110 mls/hr Q12HR@0000,1200 IVPB 11/02/17 12:00 11/07/17 11:59 Mirtazapine (Remeron) 7.5 mg BEDTIME ORAL 11/02/17 21:00 12/02/17 20:59 Patient Own Medication (Patient's Own Med) 1 ea QID BOTH EYES 11/02/17 09:00 12/02/17 08:59 11/02/17 10:01 Patient Own Medication (Patient's Own Med) 2 ea BID BOTH EYES 11/02/17 09:00 12/02/17 08:59 11/02/17 09:56 Tamsulosin HCl (Flomax) 0.4 mg DAILY ORAL 11/01/17 09:00 11/30/17 08:59 11/02/17 09:58 Allergies: Coded Allergies: NO KNOWN DRUG ALLERGIES (Unverified Allergy, Unknown, 10/31/17) Uncoded Allergies: NO KNOWN DRUG ALLERGY (Allergy, Unknown, 01/19/15) ROS Limited/Unobtainable: Yes Subjective 77 YO M admitted with near syncope. Now UTI and sepsis. Cover for [facility] Hutton. FANG Objective Last Vital Signs Date Time Temp Pulse Resp B/P (MAP) Pulse Ox O2 Delivery O2 Flow Rate FiO2 11/02/17 09:16 96 Nasal Cannula 3.0 32 11/02/17 08:00 98.4 85 19 128/69 98.4 General Appearance: WD/WN, alert, mild distress EENT: PERRL/EOMI, normal ENT inspection Neck: non-tender, normal alignment, supple Cardiovascular: normal peripheral pulses, regular rhythm, no gallop/murmur Respiratory/Chest: chest wall non-tender, lungs clear, normal breath sounds, no respiratory distress, no accessory muscle use Abdomen: normal bowel sounds, non tender, soft, no organomegaly, no mass Extremities: normal range of motion, non-tender Neurologic: manufacturer agent II-XII grossly normal, no motor/sensory deficits Skin: normal pigmentation, warm/dry Laboratory Tests Test 11/02/17 04:00 White Blood Count 7.9 K/UL (4.8-10.8) Red Blood Count 3.46 M/UL (4.70-6.10) L Hemoglobin 11.0 G/DL (14.2-18.0) L Hematocrit 32.0 % (42.0-52.0) L Mean Corpuscular Volume 92 FL (80-99) Mean Corpuscular Hemoglobin 31.7 PG (27.0-31.0) H Mean Corpuscular Hemoglobin Concent 34.3 G/DL (32.0-36.0) Red Cell Distribution Width 11.4 % (11.6-14.8) L Platelet Count 175 K/UL (150-450) Mean Platelet Volume 7.0 FL (6.5-10.1) Neutrophils (%) (Auto) 78.8 % (45.0-75.0) H Lymphocytes (%) (Auto) 13.2 % (20.0-45.0) L Monocytes (%) (Auto) 7.3 % (1.0-10.0) Eosinophils (%) (Auto) 0.4 % (0.0-3.0) Basophils (%) (Auto) 0.4 % (0.0-2.0) Sodium Level 134 MMOL/L (136-145) L Potassium Level 3.9 MMOL/L (3.5-5.1) Chloride Level 99 MMOL/L (98-107) Carbon Dioxide Level 23 MMOL/L (21-32) Anion Gap 12 mmol/L (5-15) Blood Urea Nitrogen 20 mg/dL (7-18) H Creatinine 1.4 MG/DL (0.55-1.30) H Estimat Glomerular Filtration Rate mL/min (>60) Glucose Level 136 MG/DL (74-106) H Uric Acid 4.0 MG/DL (2.6-7.2) Calcium Level 8.9 MG/DL (8.5-10.1) Magnesium Level 1.5 MG/DL (1.8-2.4) L Iron Level 14 ug/dL (50-175) L Total Iron Binding Capacity 265 ug/dL (250-450) Percent Iron Saturation 5 % (15-50) L Unsaturated Iron Binding 251 ug/dL (112-346) Ferritin 175 NG/ML (8-388) Total Bilirubin 0.7 MG/DL (0.2-1.0) Gamma Glutamyl Transpeptidase 48 U/L (5-85) Aspartate Amino Transf (AST/SGOT) 156 U/L (15-37) H Alanine Aminotransferase (ALT/SGPT) 105 U/L (12-78) H Alkaline Phosphatase 53 U/L (46-116) Troponin I 0.075 ng/mL (0.000-0.056) Pro-B-Type Natriuretic Peptide 581 pg/mL (0-125) H Total Protein 7.1 G/DL (6.4-8.2) Albumin 2.8 G/DL (3.4-5.0) L Globulin 4.3 g/dL Albumin/Globulin Ratio 0.7 (1.0-2.7) L Triglycerides Level 185 MG/DL (30-150) H Cholesterol Level 102 MG/DL (< 200) LDL Cholesterol 59 mg/dL (<100) HDL Cholesterol 7 MG/DL (40-60) L Cholesterol/HDL Ratio 14.6 (3.3-4.4) H Vitamin B12 Level 1413 PG/ML (193-986) H Folate 8.1 NG/ML (8.6-58.9) L Thyroid Stimulating Hormone (TSH) 0.968 uiU/mL (0.358-3.740) Microbiology Date/Time Source Procedure Growth Status 10/31/17 11:15 Blood Blood Culture - Preliminary Gram Negative Bacillus 1 Resulted 10/31/17 11:08 Blood Blood Culture - Preliminary Gram Negative Bacillus 1 Resulted 10/30/17 18:50 Blood Blood Culture - Final Escherichia Coli Complete 10/30/17 18:40 Blood Blood Culture - Final Escherichia Coli Complete 10/30/17 19:30 Urine,Clean Catch Urine Culture - Final Escherichia Coli Complete Intake and Output 11/01/17 11/02/17 19:00 07:00 Intake Total 840 ml 660 ml Output Total 1100 ml 800 ml Balance -260 ml -140 ml Intake Oral 620 ml 550 ml IV Total 220 ml 110 ml Output Urine Total 850 ml 800 ml Stool Total 250 ml # Voids 3 # Bowel Movements 2 Assessment/Plan Problem List: (1) Sepsis Assessment & Plan: E. Coli. Continue meropenem per ID (2) Diabetes mellitus, type II Assessment & Plan: Continue novolog sliding scale. (3) HTN (hypertension) Assessment & Plan: Currently hypotensive. (4) Hypercholesteremia (5) UTI (urinary tract infection) Assessment & Plan: E. Coli. Continue meropenem per ID (6) Syncope (7) BPH (benign prostatic hyperplasia) (8) Hyperlipidemia Status: not improved EBER SCHUMACHER Nov 02, 2017 12:06
--- NOTE | 2017-11-02 12:41 | Infectious Diseases Prog Note ---
Assessment/Plan Assessment/Plan Assessment: Sepsis 2ry to E.coli bacteremia likely translocation from recent urologic procedure - r/o abscess given persistent bacteremia -Bcx 10/30 10/11 E.coli (R amp, bactrim, otherwise S); 10/31/ GNRs -u/a wbc 10-15, nit neg, leuk +3; ucx >100K e.coli (R amp, bactrim, otherwise S) Fever- 2ry to above, improving -no leukocytosis -CXR: Mild central pulmonary vascular congestion is noted. There is mild atelectasis. No pleural effusions are identified. SUSAN, improving Acute resp distress Pre syncope- likely due to hypotension -CT head: no acute findings. Urinary retention s/p Jeffries placeemnt 10/30 S/p prostate surgery 10/29 DM2 HTN Plan: -Switch Meropenem abx d#4 to Ceftriaxone 2gIV qd for E,coli bacteremia; duration pending CT abd/p -10/31 SP ZOsyn #2\ -2 sets of Bcx -obtain CT abd/p w/ PO contrast only (due to SUSAN) to eval for abscess -f/u cx -Monitor CBC/BMP, temperatures Thank you for this consultation. Will continue to follow along with you. Discussed with RN. Subjective Allergies: Coded Allergies: NO KNOWN DRUG ALLERGIES (Unverified Allergy, Unknown, 10/31/17) Uncoded Allergies: NO KNOWN DRUG ALLERGY (Allergy, Unknown, 01/19/15) Subjective afebrile in >24hrs persist bacteremia no leukocytosis Cr improving Objective Vital Signs Last 24 Hour Vital Signs Date Time Temp Pulse Resp B/P (MAP) Pulse Ox O2 Delivery O2 Flow Rate FiO2 11/02/17 12:00 98.8 82 19 134/74 98 98.8 11/02/17 09:16 96 Nasal Cannula 3.0 32 11/02/17 09:16 Nasal Cannula 3.0 32 11/02/17 08:00 98.4 85 19 128/69 97 Nasal Cannula 2.0 98.4 11/02/17 07:57 90 11/02/17 04:00 97 11/02/17 04:00 97.9 90 20 139/73 96 Nasal Cannula 2.0 97.9 11/02/17 00:00 97.7 102 20 145/78 96 Nasal Cannula 2.0 97.7 3/26/18 00:00 99 11/01/17 20:00 98.2 94 20 153/68 97 Nasal Cannula 2.0 98.2 11/01/17 20:00 104 11/01/17 16:00 99.5 88 19 125/68 96 Nasal Cannula 2.0 99.5 11/01/17 16:00 86 Height (Feet): 5 Height (Inches): 7.00 Weight (Pounds): 150 Objective General Appearance: no apparent distress, alert HEENT normocephalic, atraumatic, PERR, normal pharynx Neck: full range of motion, supple/symm/no masses Respiratory: chest non-tender, lungs clear, normal breath sounds, speaking full sentences Cardiovascular : regular rate, rhythm, no edema Gastrointestinal: normal bowel sounds, non tender, soft, non-distended, no guarding, no rebound Genitourinary: normal inspection, no CVA tenderness Musculoskeletal: back normal, gait/station normal, normal range of motion, non- tender Neurologic: alert, oriented x3, responsive, motor strength/tone normal, sensory intact, speech normal Skin: normal color, no rash, warm/dry, well hydrated Microbiology Date/Time Source Procedure Growth Status 10/31/17 11:15 Blood Blood Culture - Preliminary Gram Negative Bacillus 1 Resulted 10/31/17 11:08 Blood Blood Culture - Preliminary Gram Negative Bacillus 1 Resulted 10/30/17 18:50 Blood Blood Culture - Final Escherichia Coli Complete 10/30/17 18:40 Blood Blood Culture - Final Escherichia Coli Complete 10/30/17 19:30 Urine,Clean Catch Urine Culture - Final Escherichia Coli Complete Laboratory Tests Test 11/02/17 04:00 White Blood Count 7.9 K/UL (4.8-10.8) Red Blood Count 3.46 M/UL (4.70-6.10) L Hemoglobin 11.0 G/DL (14.2-18.0) L Hematocrit 32.0 % (42.0-52.0) L Mean Corpuscular Volume 92 FL (80-99) Mean Corpuscular Hemoglobin 31.7 PG (27.0-31.0) H Mean Corpuscular Hemoglobin Concent 34.3 G/DL (32.0-36.0) Red Cell Distribution Width 11.4 % (11.6-14.8) L Platelet Count 175 K/UL (150-450) Mean Platelet Volume 7.0 FL (6.5-10.1) Neutrophils (%) (Auto) 78.8 % (45.0-75.0) H Lymphocytes (%) (Auto) 13.2 % (20.0-45.0) L Monocytes (%) (Auto) 7.3 % (1.0-10.0) Eosinophils (%) (Auto) 0.4 % (0.0-3.0) Basophils (%) (Auto) 0.4 % (0.0-2.0) Sodium Level 134 MMOL/L (136-145) L Potassium Level 3.9 MMOL/L (3.5-5.1) Chloride Level 99 MMOL/L (98-107) Carbon Dioxide Level 23 MMOL/L (21-32) Anion Gap 12 mmol/L (5-15) Blood Urea Nitrogen 20 mg/dL (7-18) H Creatinine 1.4 MG/DL (0.55-1.30) H Estimat Glomerular Filtration Rate mL/min (>60) Glucose Level 136 MG/DL (74-106) H Uric Acid 4.0 MG/DL (2.6-7.2) Calcium Level 8.9 MG/DL (8.5-10.1) Magnesium Level 1.5 MG/DL (1.8-2.4) L Iron Level 14 ug/dL (50-175) L Total Iron Binding Capacity 265 ug/dL (250-450) Percent Iron Saturation 5 % (15-50) L Unsaturated Iron Binding 251 ug/dL (112-346) Ferritin 175 NG/ML (8-388) Total Bilirubin 0.7 MG/DL (0.2-1.0) Gamma Glutamyl Transpeptidase 48 U/L (5-85) Aspartate Amino Transf (AST/SGOT) 156 U/L (15-37) H Alanine Aminotransferase (ALT/SGPT) 105 U/L (12-78) H Alkaline Phosphatase 53 U/L (46-116) Troponin I 0.075 ng/mL (0.000-0.056) Pro-B-Type Natriuretic Peptide 581 pg/mL (0-125) H Total Protein 7.1 G/DL (6.4-8.2) Albumin 2.8 G/DL (3.4-5.0) L Globulin 4.3 g/dL Albumin/Globulin Ratio 0.7 (1.0-2.7) L Triglycerides Level 185 MG/DL (30-150) H Cholesterol Level 102 MG/DL (< 200) LDL Cholesterol 59 mg/dL (<100) HDL Cholesterol 7 MG/DL (40-60) L Cholesterol/HDL Ratio 14.6 (3.3-4.4) H Vitamin B12 Level 1413 PG/ML (193-986) H Folate 8.1 NG/ML (8.6-58.9) L Thyroid Stimulating Hormone (TSH) 0.968 uiU/mL (0.358-3.740) Current Medications Medications (Trade) Dose Ordered Sig/Bryanna Route PRN Reason Start Time Stop Time Status Last Admin Dose Admin Acetaminophen (Tylenol) 650 mg Q4H PRN ORAL Mild Pain/Temp > 100.5 10/31/17 12:30 11/30/17 12:29 11/01/17 02:32 Aspirin (Ecotrin) 81 mg DAILY ORAL 11/01/17 09:00 11/30/17 08:59 11/02/17 09:57 Atorvastatin Calcium (Lipitor) 10 mg QHS ORAL 10/31/17 21:00 11/30/17 20:59 11/01/17 20:12 Dextrose (Dextrose 50%) STAT PRN IV Hypoglycemia 10/31/17 12:30 11/30/17 12:29 Insulin Aspart (NovoLOG) BEFORE MEALS AND HS SUBQ 10/31/17 12:30 11/30/17 12:29 11/02/17 05:46 Lansoprazole (Prevacid) 30 mg DAILY ORAL 11/01/17 11:00 12/01/17 10:59 11/02/17 09:57 Magnesium Sulfate 100 ml @ 100 mls/hr ONCE ONCE IVPB 11/02/17 12:00 11/02/17 12:59 Meropenem 1 gm/ Sodium Chloride 55 ml @ 110 mls/hr Q12HR@0000,1200 IVPB 11/02/17 12:00 11/07/17 11:59 Mirtazapine (Remeron) 7.5 mg BEDTIME ORAL 11/02/17 21:00 12/02/17 20:59 Patient Own Medication (Patient's Own Med) 1 ea QID BOTH EYES 11/02/17 09:00 12/02/17 08:59 11/02/17 10:01 Patient Own Medication (Patient's Own Med) 2 ea BID BOTH EYES 11/02/17 09:00 12/02/17 08:59 11/02/17 09:56 Tamsulosin HCl (Flomax) 0.4 mg DAILY ORAL 11/01/17 09:00 11/30/17 08:59 11/02/17 09:58 Taniay Lipscomb M.D. Nov 02, 2017 12:41
--- NOTE | 2017-11-02 14:31 | Consultation ---
History of Present Illness General Date patient seen: Nov 01, 2017 Chief Complaint: Altered Level of Consciousness Present Illness HPI 77-year-old male brought in by EMS. Family at bedside states the patient had prostate surgery recently. the pt has been agitated and coming out of bed. he has episodes of confusion. the pt has waxing and waning of consciousness. Allergies: Coded Allergies: NO KNOWN DRUG ALLERGIES (Unverified Allergy, Unknown, 10/31/17) Uncoded Allergies: NO KNOWN DRUG ALLERGY (Allergy, Unknown, 01/19/15) Medication History Scheduled Aspirin (Aspirin EC), 81 MG PO DAILY, (Reported) Atorvastatin Calcium* (Lipitor*), 10 MG PO DAILY, (Reported) Metformin Hcl* (Glucophage*), 500 MG PO DAILY, (Reported) Olmesartan/Hydrochlorothiazide 20-12.5 (Benicar Hct 20-12.5 Mg Tablet), 1 EACH PO DAILY, (Reported) Ranitidine Hcl* (Zantac*), 150 MG PO DAILY, (Reported) Tamsulosin HCl (Flomax), 0.4 MG PO DAILY, (Reported) Scheduled PRN Acetaminophen (Acetaminophen), 650 MG ORAL Q6H PRN for Prn Headache/Temp > 101, (Reported) Zolpidem Tartrate* (Ambien*), 5 MG ORAL BEDTIME PRN for Insomnia, (Reported) Patient History History Provided By: Patient, Medical Record, PMD Healthcare decision maker Resuscitation status Full Code Advanced Directive on File Past Medical/Surgical History Past Medical/Surgical History: (1) Anxiety (2) UTI (urinary tract infection) (3) BPH (benign prostatic hyperplasia) (4) Diabetes mellitus, type II (5) Hypercholesteremia (6) Hyperlipidemia (7) Syncope (8) Sepsis (9) HTN (hypertension) Review of Systems Psychiatric: Reports: anxiety, depressed feelings, emotional problems Physical Exam General Appearance: no apparent distress, alert, agitated Last 24 Hour Vital Signs Date Time Temp Pulse Resp B/P (MAP) Pulse Ox O2 Delivery O2 Flow Rate FiO2 11/02/17 12:00 98.8 82 19 134/74 98 98.8 11/02/17 09:16 96 Nasal Cannula 3.0 32 11/02/17 09:16 Nasal Cannula 3.0 32 11/02/17 08:00 98.4 85 19 128/69 97 Nasal Cannula 2.0 98.4 11/02/17 07:57 90 11/02/17 04:00 97 11/02/17 04:00 97.9 90 20 139/73 96 Nasal Cannula 2.0 97.9 11/02/17 00:00 97.7 102 20 145/78 96 Nasal Cannula 2.0 97.7 11/02/17 00:00 99 11/01/17 20:00 98.2 94 20 153/68 97 Nasal Cannula 2.0 98.2 11/01/17 20:00 104 11/01/17 16:00 99.5 88 19 125/68 96 Nasal Cannula 2.0 99.5 11/01/17 16:00 86 Intake and Output 11/01/17 11/02/17 19:00 07:00 Intake Total 840 ml 660 ml Output Total 1100 ml 800 ml Balance -260 ml -140 ml Intake Oral 620 ml 550 ml IV Total 220 ml 110 ml Output Urine Total 850 ml 800 ml Stool Total 250 ml # Voids 3 # Bowel Movements 2 Laboratory Tests Test 11/02/17 04:00 11/02/17 12:30 White Blood Count 7.9 K/UL (4.8-10.8) Red Blood Count 3.46 M/UL (4.70-6.10) L Hemoglobin 11.0 G/DL (14.2-18.0) L Hematocrit 32.0 % (42.0-52.0) L Mean Corpuscular Volume 92 FL (80-99) Mean Corpuscular Hemoglobin 31.7 PG (27.0-31.0) H Mean Corpuscular Hemoglobin Concent 34.3 G/DL (32.0-36.0) Red Cell Distribution Width 11.4 % (11.6-14.8) L Platelet Count 175 K/UL (150-450) Mean Platelet Volume 7.0 FL (6.5-10.1) Neutrophils (%) (Auto) 78.8 % (45.0-75.0) H Lymphocytes (%) (Auto) 13.2 % (20.0-45.0) L Monocytes (%) (Auto) 7.3 % (1.0-10.0) Eosinophils (%) (Auto) 0.4 % (0.0-3.0) Basophils (%) (Auto) 0.4 % (0.0-2.0) Sodium Level 134 MMOL/L (136-145) L Potassium Level 3.9 MMOL/L (3.5-5.1) Chloride Level 99 MMOL/L (98-107) Carbon Dioxide Level 23 MMOL/L (21-32) Anion Gap 12 mmol/L (5-15) Blood Urea Nitrogen 20 mg/dL (7-18) H Creatinine 1.4 MG/DL (0.55-1.30) H Estimat Glomerular Filtration Rate mL/min (>60) Glucose Level 136 MG/DL (74-106) H Uric Acid 4.0 MG/DL (2.6-7.2) Calcium Level 8.9 MG/DL (8.5-10.1) Magnesium Level 1.5 MG/DL (1.8-2.4) L Iron Level 14 ug/dL (50-175) L Total Iron Binding Capacity 265 ug/dL (250-450) Percent Iron Saturation 5 % (15-50) L Unsaturated Iron Binding 251 ug/dL (112-346) Ferritin 175 NG/ML (8-388) Total Bilirubin 0.7 MG/DL (0.2-1.0) Gamma Glutamyl Transpeptidase 48 U/L (5-85) Aspartate Amino Transf (AST/SGOT) 156 U/L (15-37) H Alanine Aminotransferase (ALT/SGPT) 105 U/L (12-78) H Alkaline Phosphatase 53 U/L (46-116) Troponin I 0.075 ng/mL (0.000-0.056) 0.037 ng/mL (0.000-0.056) Pro-B-Type Natriuretic Peptide 581 pg/mL (0-125) H Total Protein 7.1 G/DL (6.4-8.2) Albumin 2.8 G/DL (3.4-5.0) L Globulin 4.3 g/dL Albumin/Globulin Ratio 0.7 (1.0-2.7) L Triglycerides Level 185 MG/DL (30-150) H Cholesterol Level 102 MG/DL (< 200) LDL Cholesterol 59 mg/dL (<100) HDL Cholesterol 7 MG/DL (40-60) L Cholesterol/HDL Ratio 14.6 (3.3-4.4) H Vitamin B12 Level 1413 PG/ML (193-986) H Folate 8.1 NG/ML (8.6-58.9) L Thyroid Stimulating Hormone (TSH) 0.968 uiU/mL (0.358-3.740) Height (Feet): 5 Height (Inches): 7.00 Weight (Pounds): 150 Medications Current Medications Medications (Trade) Dose Ordered Sig/Bryanna Route PRN Reason Start Time Stop Time Status Last Admin Dose Admin Acetaminophen (Tylenol) 650 mg Q4H PRN ORAL Mild Pain/Temp > 100.5 10/31/17 12:30 11/30/17 12:29 11/01/17 02:32 Aspirin (Ecotrin) 81 mg DAILY ORAL 11/01/17 09:00 11/30/17 08:59 11/02/17 09:57 Atorvastatin Calcium (Lipitor) 10 mg QHS ORAL 10/31/17 21:00 11/30/17 20:59 11/01/17 20:12 Ceftriaxone Sodium 2 gm/ Dextrose 55 ml @ 110 mls/hr Q24H IVPB 11/02/17 17:00 11/09/17 16:59 Dextrose (Dextrose 50%) STAT PRN IV Hypoglycemia 10/31/17 12:30 11/30/17 12:29 Insulin Aspart (NovoLOG) BEFORE MEALS AND HS SUBQ 10/31/17 12:30 11/30/17 12:29 11/02/17 12:53 Lansoprazole (Prevacid) 30 mg DAILY ORAL 11/01/17 11:00 12/01/17 10:59 11/02/17 09:57 Mirtazapine (Remeron) 7.5 mg BEDTIME ORAL 11/02/17 21:00 12/02/17 20:59 Patient Own Medication (Patient's Own Med) 1 ea QID BOTH EYES 11/02/17 09:00 12/02/17 08:59 11/02/17 12:54 Patient Own Medication (Patient's Own Med) 2 ea BID BOTH EYES 11/02/17 09:00 12/02/17 08:59 11/02/17 09:56 Tamsulosin HCl (Flomax) 0.4 mg DAILY ORAL 11/01/17 09:00 11/30/17 08:59 11/02/17 09:58 Assessment/Plan Status: stable, progressing Assessment/Plan 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 Nov 02, 2017 14:31
--- NOTE | 2017-11-02 15:15 | General Progress Note ---
Assessment/Plan Assessment/Plan HPTN DM HYPOTHYRODISM CHRONIC ABDOMINAL PAIN UROSEPSIS METABOLIC ENCEPHALOPATHY BACTEREMIA RECEIVING IV ABTX DISCUSSED WITH PT AND HIS Subjective Allergies: Coded Allergies: NO KNOWN DRUG ALLERGIES (Unverified Allergy, Unknown, 10/31/17) Uncoded Allergies: NO KNOWN DRUG ALLERGY (Allergy, Unknown, 01/19/15) Subjective GERIATRIC MEDICINE CONSULTATION RECEIVED A CALL THAT PT HAS BEEN HOSPITALIZED AT [facility] APPARENTLY PT HAS UNDERGONE PROSTATE BIOPSY AND HAS DEVELOPED FEVER CHILLS AND SYNCOPE AND UROSEPSIS AND BACTEREMIA RECEIVING IV ABTX Objective Last 24 Hour Vital Signs Date Time Temp Pulse Resp B/P (MAP) Pulse Ox O2 Delivery O2 Flow Rate FiO2 11/02/17 12:00 98.8 82 19 134/74 98 98.8 11/02/17 09:16 96 Nasal Cannula 3.0 32 11/02/17 09:16 Nasal Cannula 3.0 32 11/02/17 08:00 98.4 85 19 128/69 97 Nasal Cannula 2.0 98.4 11/02/17 07:57 90 11/02/17 04:00 97 11/02/17 04:00 97.9 90 20 139/73 96 Nasal Cannula 2.0 97.9 11/02/17 00:00 97.7 102 20 145/78 96 Nasal Cannula 2.0 97.7 11/02/17 00:00 99 11/01/17 20:00 98.2 94 20 153/68 97 Nasal Cannula 2.0 98.2 11/01/17 20:00 104 11/01/17 16:00 99.5 88 19 125/68 96 Nasal Cannula 2.0 99.5 11/01/17 16:00 86 Intake and Output 11/01/17 11/02/17 19:00 07:00 Intake Total 840 ml 660 ml Output Total 1100 ml 800 ml Balance -260 ml -140 ml Intake Oral 620 ml 550 ml IV Total 220 ml 110 ml Output Urine Total 850 ml 800 ml Stool Total 250 ml # Voids 3 # Bowel Movements 2 Laboratory Tests 11/02/17 04:00: White Blood Count 7.9, Red Blood Count 3.46L, Hemoglobin 11.0L, Hematocrit 32.0L , Mean Corpuscular Volume 92, Mean Corpuscular Hemoglobin 31.7H, Mean Corpuscular Hemoglobin Concent 34.3, Red Cell Distribution Width 11.4L, Platelet Count 175, Mean Platelet Volume 7.0, Neutrophils (%) (Auto) 78.8H, Lymphocytes (%) (Auto) 13.2L, Monocytes (%) (Auto) 7.3, Eosinophils (%) (Auto) 0.4, Basophils (%) (Auto) 0.4, Sodium Level 134L, Potassium Level 3.9, Chloride Level 99, Carbon Dioxide Level 23, Anion Gap 12, Blood Urea Nitrogen 20H, Creatinine 1.4H, Estimat Glomerular Filtration Rate , Glucose Level 136H, Uric Acid 4.0, Calcium Level 8.9, Magnesium Level 1.5L, Iron Level 14L, Total Iron Binding Capacity 265, Percent Iron Saturation 5L, Unsaturated Iron Binding 251, Ferritin 175, Total Bilirubin 0.7, Gamma Glutamyl Transpeptidase 48, Aspartate Amino Transf (AST/SGOT) 156H, Alanine Aminotransferase (ALT/SGPT) 105H, Alkaline Phosphatase 53, Troponin I 0.075H, Pro-B-Type Natriuretic Peptide 581H , Total Protein 7.1, Albumin 2.8L, Globulin 4.3, Albumin/Globulin Ratio 0.7L, Triglycerides Level 185H, Cholesterol Level 102, LDL Cholesterol 59, HDL Cholesterol 7L, Cholesterol/HDL Ratio 14.6H, Vitamin B12 Level 1413H, Folate 8.1L, Thyroid Stimulating Hormone (TSH) 0.968 11/02/17 12:30: Troponin I 0.037 Height (Feet): 5 Height (Inches): 7.00 Weight (Pounds): 150 General Appearance: no apparent distress Respiratory/Chest: lungs clear Abdomen: non tender, soft Edema: trace edema Toya Wade MD Nov 02, 2017 15:15
--- NOTE | 2017-11-02 15:21 | Nephrology Progress Note ---
Assessment/Plan Problem List: (1) BPH (benign prostatic hyperplasia) (2) Acute renal failure Assessment: with underlying CKD (3) HTN (hypertension) (4) UTI (urinary tract infection) Assessment Acute renal failure- improving post aceves and discontinuation of HCTZ 1. Fever. 2. Near syncope. 3. Probable sepsis. 4. Benign prostatic hypertrophy. 5. Diabetes type 2. 6. Hypertension. 7. Hypercholesterolemia. Plan Check renal parameters and electrolytes Per orders Subjective ROS Limited/Unobtainable: No Constitutional: Reports: malaise Objective Objective Last 24 Hour Vital Signs Date Time Temp Pulse Resp B/P (MAP) Pulse Ox O2 Delivery O2 Flow Rate FiO2 11/02/17 12:00 98.8 82 19 134/74 98 98.8 11/02/17 09:16 96 Nasal Cannula 3.0 32 11/02/17 09:16 Nasal Cannula 3.0 32 11/02/17 08:00 98.4 85 19 128/69 97 Nasal Cannula 2.0 98.4 11/02/17 07:57 90 11/02/17 04:00 97 11/02/17 04:00 97.9 90 20 139/73 96 Nasal Cannula 2.0 97.9 11/02/17 00:00 97.7 102 20 145/78 96 Nasal Cannula 2.0 97.7 11/02/17 00:00 99 11/01/17 20:00 98.2 94 20 153/68 97 Nasal Cannula 2.0 98.2 11/01/17 20:00 104 11/01/17 16:00 99.5 88 19 125/68 96 Nasal Cannula 2.0 99.5 11/01/17 16:00 86 Intake and Output 11/01/17 11/02/17 19:00 07:00 Intake Total 840 ml 660 ml Output Total 1100 ml 800 ml Balance -260 ml -140 ml Intake Oral 620 ml 550 ml IV Total 220 ml 110 ml Output Urine Total 850 ml 800 ml Stool Total 250 ml # Voids 3 # Bowel Movements 2 Laboratory Tests 11/02/17 04:00: White Blood Count 7.9, Red Blood Count 3.46L, Hemoglobin 11.0L, Hematocrit 32.0L , Mean Corpuscular Volume 92, Mean Corpuscular Hemoglobin 31.7H, Mean Corpuscular Hemoglobin Concent 34.3, Red Cell Distribution Width 11.4L, Platelet Count 175, Mean Platelet Volume 7.0, Neutrophils (%) (Auto) 78.8H, Lymphocytes (%) (Auto) 13.2L, Monocytes (%) (Auto) 7.3, Eosinophils (%) (Auto) 0.4, Basophils (%) (Auto) 0.4, Sodium Level 134L, Potassium Level 3.9, Chloride Level 99, Carbon Dioxide Level 23, Anion Gap 12, Blood Urea Nitrogen 20H, Creatinine 1.4H, Estimat Glomerular Filtration Rate , Glucose Level 136H, Uric Acid 4.0, Calcium Level 8.9, Magnesium Level 1.5L, Iron Level 14L, Total Iron Binding Capacity 265, Percent Iron Saturation 5L, Unsaturated Iron Binding 251, Ferritin 175, Total Bilirubin 0.7, Gamma Glutamyl Transpeptidase 48, Aspartate Amino Transf (AST/SGOT) 156H, Alanine Aminotransferase (ALT/SGPT) 105H, Alkaline Phosphatase 53, Troponin I 0.075H, Pro-B-Type Natriuretic Peptide 581H , Total Protein 7.1, Albumin 2.8L, Globulin 4.3, Albumin/Globulin Ratio 0.7L, Triglycerides Level 185H, Cholesterol Level 102, LDL Cholesterol 59, HDL Cholesterol 7L, Cholesterol/HDL Ratio 14.6H, Vitamin B12 Level 1413H, Folate 8.1L, Thyroid Stimulating Hormone (TSH) 0.968 11/02/17 12:30: Troponin I 0.037 Height (Feet): 5 Height (Inches): 7.00 Weight (Pounds): 150 Cardiovascular: normal rate Respiratory/Chest: decreased breath sounds Abdomen: soft SHARRON ANTHONY 26, 2018 15:21
[2017-11-02 16:00] VITALS: BP 137/68
[2017-11-02] MEDS ORDERED: cefTRIAXone 2 GM in D5W 55 ML IVPB SCH (17:00)
--- NOTE | 2017-11-02 18:52 | Cardiology Report ---
APPROVED REPORT EXAM: Two-dimensional and M-mode echocardiogram with Doppler and color Doppler. INDICATION Congestive Heart Failure M-Mode DIMENSIONS IVSd1.0 (0.7-1.1cm)Left Atrium (MM)4.0 (1.6-4.0cm) LVDd4.4 (3.5-5.6cm)Aortic Root3.0 (2.0-3.7cm) PWd0.8 (0.7-1.1cm)Aortic Cusp Exc.1.3 (1.5-2.0cm) LVDs2.9 (2.5-4.0cm) PWs1.0 cm Normal left ventricular chamber size, systolic function and wall motion. Left ventricular ejection fraction estimated to be 60-65 %. No evidence of left ventricular hypertrophy. Anterior Echo-free space, may be due to pericardial fat or effusion. Mild right ventricular enlargement. Right atrial chamber size is within normal limits. Left atrial chamber size is within normal limits. Mild focal aortic valve sclerosis with adequate cusp excursion. Thickened mitral valve leaflets with normal excursion. Moderate mitral annulus and aortic root calcification. Normal pulmonic valve structure. Normal tricuspid valve structure. Subcostal views not obtainable. A color flow and spectral Doppler study was performed and revealed: Moderate aortic insufficiency. Peak aortic valve gradient of 27 mmHg and a mean of 14 mmHg. Aortic valve area 1.8 cm2 calculated by continuity equation. Mild to moderate mitral regurgitation. Mitral diastolic velocities suggest mild left ventricular diastolic dysfunction (Grade I). Mild to moderate tricuspid regurgitation. Tricuspid systolic velocities suggests peak right ventricular systolic pressure of 50 mmHg, consistent with moderate pulmonary hypertension. Mild pulmonic regurgitation present.
--- NOTE | 2017-11-02 19:22 | Cardiology Report ---
APPROVED REPORT EKG Measurement Heart [id number] Sinus tachycardia Possible Left atrial enlargement Incomplete right bundle branch block Inferior infarct, age undetermined Abnormal ECG
[2017-11-02 20:00] VITALS: BP 141/73
[2017-11-02] MEDS ORDERED: Zolpidem 5mg tab ORAL PRN (21:30)
--- NOTE | 2017-11-02 23:26 | Pulmonolgy Critical Care Note ---
Critical Care - Asmt/Plan Assessment/Plan: HPI 77 y/o M presents c/p fever, fainting episode, note s/p recent prostate surgery , noted to have Gram Negative Rods on Blood Cultures. PMH of DM2, HTN. On the morning of admission patient was seen by urologist and aceves catheter was placed as patient was unable to void. Was found to be hypotensive by EMS which responded to IVFs. Fevers to 102.5 noted, currently afebrile No current complaints Denies CP, SOB, n/v/d. Allergies: Coded Allergies: NO KNOWN DRUG ALLERGIES (Unverified Allergy, Unknown, 10/31/17) Uncoded Allergies: NO KNOWN DRUG ALLERGY (Allergy, Unknown, 01/19/15) Medication History Scheduled Aspirin (Aspirin EC), 81 MG PO DAILY, (Reported) Atorvastatin Calcium* (Lipitor*), 10 MG PO DAILY, (Reported) Metformin Hcl* (Glucophage*), 500 MG PO DAILY, (Reported) Olmesartan/Hydrochlorothiazide 20-12.5 (Benicar Hct 20-12.5 Mg Tablet), 1 EACH PO DAILY, (Reported) Ranitidine Hcl* (Zantac*), 150 MG PO DAILY, (Reported) Tamsulosin HCl (Flomax), 0.4 MG PO DAILY, (Reported) Scheduled PRN Acetaminophen (Acetaminophen), 650 MG ORAL Q6H PRN for Prn Headache/Temp > 101, (Reported) Zolpidem Tartrate* (Ambien*), 5 MG ORAL BEDTIME PRN for Insomnia, (Reported) Patient History Healthcare decision maker Resuscitation status Full Code Advanced Directive on File Patient History Narrative Pmx: as above Shx: Denies: smoking, alcohol use, drug use Fhx: non contributory Review of Systems All Other Systems: negative except mentioned in HPI Physical Exam Physical Exam Narrative General Appearance: no apparent distress, alert HEENT normocephalic, atraumatic, PERR, normal pharynx Neck: full range of motion, supple/symm/no masses Respiratory: chest non-tender, lungs clear, normal breath sounds, speaking full sentences Cardiovascular : regular rate, rhythm, no edema Gastrointestinal: normal bowel sounds, non tender, soft, non-distended, no guarding, no rebound Genitourinary: normal inspection, no CVA tenderness Musculoskeletal: back normal, gait/station normal, normal range of motion, non- tender Neurologic: alert, oriented x3, responsive, motor strength/tone normal, sensory intact, speech normal Skin: normal color, no rash, warm/dry, well hydrated Last 24 Hour Vital Signs Date Time Temp Pulse Resp B/P (MAP) Pulse Ox O2 Delivery O2 Flow Rate FiO2 10/31/17 08:15 20 95 Venturi Mask 10.0 50 10/31/17 08:15 98.4 99 20 113/68 95 Nasal Cannula 98.4 10/31/17 04:12 136 10/31/17 04:00 100.6 136 36 115/66 94 Venturi Mask 50 100.6 10/31/17 04:00 115 10/31/17 03:55 100.6 10/31/17 02:44 102.5 10/31/17 01:40 140 10/31/17 00:00 102.6 115 22 108/72 96 Room Air 102.6 10/30/17 23:40 97.7 86 23 101/53 96 Room Air 102.0 10/30/17 23:30 86 23 101/53 96 Room Air 10/30/17 21:30 97 24 101/53 95 Room Air 10/30/17 20:30 104 23 128/111 95 Room Air 10/30/17 20:17 102.0 10/30/17 19:30 104 21 109/59 96 Room Air 10/30/17 19:18 102.0 10/30/17 18:19 102 20 99/55 100 Room Air Intake and Output 10/30/17 10/31/17 19:00 07:00 Output Total 50 ml Balance -50 ml Output Urine Total 50 ml # Bowel Movements 1 Laboratory Tests Test 10/30/17 18:40 10/30/17 19:30 10/31/17 04:14 10/31/17 09:08 White Blood Count 7.6 K/UL (4.8-10.8) 8.6 K/UL (4.8-10.8) Red Blood Count 3.56 M/UL (4.70-6.10) L 3.43 M/UL (4.70-6.10) L Hemoglobin 11.1 G/DL (14.2-18.0) L 10.8 G/DL (14.2-18.0) L Hematocrit 33.1 % (42.0-52.0) L 32.1 % (42.0-52.0) L Mean Corpuscular Volume 93 FL (80-99) 93 FL (80-99) Mean Corpuscular Hemoglobin 31.1 PG (27.0-31.0) H 31.5 PG (27.0-31.0) H Mean Corpuscular Hemoglobin Concent 33.5 G/DL (32.0-36.0) 33.7 G/DL (32.0-36.0) Red Cell Distribution Width 11.7 % (11.6-14.8) 11.6 % (11.6-14.8) Platelet Count 234 K/UL (150-450) 194 K/UL (150-450) Mean Platelet Volume 6.5 FL (6.5-10.1) 6.8 FL (6.5-10.1) Neutrophils (%) (Auto) % (45.0-75.0) % (45.0-75.0) Lymphocytes (%) (Auto) % (20.0-45.0) % (20.0-45.0) Monocytes (%) (Auto) % (1.0-10.0) % (1.0-10.0) Eosinophils (%) (Auto) % (0.0-3.0) % (0.0-3.0) Basophils (%) (Auto) % (0.0-2.0) % (0.0-2.0) Sodium Level 136 MMOL/L (136-145) 138 MMOL/L (136-145) Potassium Level 4.4 MMOL/L (3.5-5.1) 3.6 MMOL/L (3.5-5.1) Chloride Level 105 MMOL/L (98-107) 103 MMOL/L (98-107) Carbon Dioxide Level 22 MMOL/L (21-32) 20 MMOL/L (21-32) L Anion Gap 9 mmol/L (5-15) 15 mmol/L (5-15) Blood Urea Nitrogen 22 mg/dL (7-18) H 20 mg/dL (7-18) H Creatinine 2.0 MG/DL (0.55-1.30) H 1.8 MG/DL (0.55-1.30) H Estimat Glomerular Filtration Rate mL/min (>60) mL/min (>60) Glucose Level 127 MG/DL (74-106) H 151 MG/DL (74-106) H Lactic Acid Level 2.40 mmol/L (0.66-2.22) H Calcium Level 9.0 MG/DL (8.5-10.1) 8.8 MG/DL (8.5-10.1) Total Bilirubin 0.7 MG/DL (0.2-1.0) Aspartate Amino Transf (AST/SGOT) 20 U/L (15-37) Alanine Aminotransferase (ALT/SGPT) 24 U/L (12-78) Alkaline Phosphatase 42 U/L (46-116) L Total Creatine Kinase 271 U/L (26-308) Creatine Kinase MB 2.1 NG/ML (0.0-3.6) Creatine Kinase MB Relative Index 0.7 Troponin I 0.016 ng/mL (0.000-0.056) Pro-B-Type Natriuretic Peptide 210 pg/mL (0-125) H Total Protein 7.2 G/DL (6.4-8.2) Albumin 3.5 G/DL (3.4-5.0) Globulin 3.7 g/dL Albumin/Globulin Ratio 0.9 (1.0-2.7) L Urine Color Yellow Urine Appearance Slightly cloudy Urine pH 6 (4.5-8.0) Urine Specific [place] 1.010 (1.005-1.035) Urine Protein 3+ (NEGATIVE) H Urine Glucose (UA) Negative (NEGATIVE) Urine Ketones 2+ (NEGATIVE) H Urine Occult Blood 5+ (NEGATIVE) H Urine Nitrite Negative (NEGATIVE) Urine Bilirubin Negative (NEGATIVE) Urine Urobilinogen 1 MG/DL (0.0-1.0) H Urine Leukocyte Esterase 3+ (NEGATIVE) H Urine RBC 15-20 /HPF (0 - 0) H Urine WBC 10-15 /HPF (0 - 0) H Urine Squamous Epithelial Cells None /LPF (NONE/OCC) Urine Bacteria Moderate /HPF (NONE) H Urine Yeast Few /HPF (NONE) H Arterial Blood pH 7.364 (7.350-7.450) Arterial Blood Partial Pressure CO2 25.7 mmHg (35.0-45.0) L Arterial Blood Partial Pressure O2 187.9 mmHg (75.0-100.0) H Arterial Blood HCO3 14.3 mmol/L (22.0-26.0) L Arterial Blood Oxygen Saturation 98.5 % (92.0-98.0) H Arterial Blood Base Excess -9.4 Mateusz Test Positive Neutrophils % (Manual) Pending Lymphocytes % (Manual) Pending Platelet Estimate Pending Platelet Morphology Pending Hemoglobin A1c Pending Phosphorus Level 1.5 MG/DL (2.5-4.9) L Magnesium Level 1.0 MG/DL (1.8-2.4) L Microbiology Date/Time Source Procedure Growth Status 10/30/17 18:50 Blood Blood Culture - Preliminary Resulted 10/30/17 18:40 Blood Blood Culture - Preliminary Resulted 10/30/17 19:30 Urine,Clean Catch Urine Culture - Preliminary Resulted Height (Feet): 5 Height (Inches): 7.00 Weight (Pounds): 150 Medications Current Medications Medications (Trade) Dose Ordered Sig/Bryanna Route PRN Reason Start Time Stop Time Status Last Admin Dose Admin Acetaminophen (Tylenol) 650 mg Q4H PRN ORAL Mild Pain/Temp > 100.5 10/31/17 02:00 11/30/17 01:59 10/31/17 02:44 Aspirin (Ecotrin) 81 mg DAILY ORAL 10/31/17 09:00 11/30/17 08:59 10/31/17 09:39 Atorvastatin Calcium (Lipitor) 10 mg QHS ORAL 10/31/17 21:00 11/30/17 20:59 Dextrose (Dextrose 50%) STAT PRN IV Hypoglycemia 10/31/17 00:45 11/30/17 00:44 Hydrochlorothiazide (Hydrodiuril) 12.5 mg DAILY ORAL 10/31/17 09:00 11/30/17 08:59 10/31/17 09:39 Insulin Aspart (NovoLOG) BEFORE MEALS AND HS SUBQ 10/31/17 06:30 11/30/17 06:29 Metformin HCl (Glucophage) 500 mg DAILY ORAL 10/31/17 09:00 11/30/17 08:59 UNV Piperacillin Sod/ Tazobactam Sod 3.375 gm/Dextrose 110 ml @ 27.5 mls/hr EVERY 8 HOURS IVPB 10/31/17 06:00 11/05/17 05:59 10/31/17 05:32 Tamsulosin HCl (Flomax) 0.4 mg DAILY ORAL 10/31/17 09:00 11/30/17 08:59 10/31/17 09:39 Zolpidem Tartrate (Ambien) 5 mg BEDTIME PRN ORAL Insomnia 10/31/17 00:45 11/07/17 00:44 10/31/17 01:51 Assessment/Plan Assessment: Sepsis/fevers secondary to GNR bacteremia likely translocation from recent urologic procedure - r/o ESBL -Bcx 10/30 10/11 GNRs -u/a wbc 10-15, nit neg, leuk +3; ucx p Acute resp distress: Much improved, CXR: Mild central pulmonary vascular congestion is noted. There is mild atelectasis. No pleural effusions are identified. Avoid excessive positive fluid balance Pre syncope- likely due to hypotension -CT head: no acute findings. Urinary retention s/p Aceves placeemnt 10/30 S/p prostate surgery 10/29 DM2 HTN Plan: Continue Antibiotics per ID Meropenem for ESBL coverage pending ID and sensi GNRs -Monitor labs - PRN Oxygen - Triflo - DVT prophyllaxis Thank you for this consultation. Discussed with RN. Critical Care - Objective Last 24 Hour Vital Signs Date Time Temp Pulse Resp B/P (MAP) Pulse Ox O2 Delivery O2 Flow Rate FiO2 11/02/17 20:00 99.2 92 20 141/73 94 Room Air 99.2 11/02/17 20:00 92 11/02/17 16:00 96.6 91 20 137/68 96 Room Air 96.6 11/02/17 16:00 90 11/02/17 12:00 98.8 82 19 134/74 98 98.8 11/02/17 11:53 87 11/02/17 09:16 96 Nasal Cannula 3.0 32 11/02/17 09:16 Nasal Cannula 3.0 32 11/02/17 08:00 98.4 85 19 128/69 97 Nasal Cannula 2.0 98.4 11/02/17 07:57 90 11/02/17 04:00 97 11/02/17 04:00 97.9 90 20 139/73 96 Nasal Cannula 2.0 97.9 11/02/17 00:00 97.7 102 20 145/78 96 Nasal Cannula 2.0 97.7 11/02/17 00:00 99 Micro: Microbiology Date/Time Source Procedure Growth Status 10/31/17 11:15 Blood Blood Culture - Preliminary Gram Negative Bacillus 1 Resulted 10/31/17 11:08 Blood Blood Culture - Preliminary Gram Negative Bacillus 1 Resulted Accucheck: 137 Critical Care - Subjective ROS Limited/Unobtainable: Yes Condition: improving EKG Rhythm: Sinus Rhythm FI02: 32 I&O: Intake and Output 11/01/17 11/02/17 19:00 07:00 Intake Total 840 ml 660 ml Output Total 1100 ml 800 ml Balance -260 ml -140 ml Intake Oral 620 ml 550 ml IV Total 220 ml 110 ml Output Urine Total 850 ml 800 ml Stool Total 250 ml # Voids 3 # Bowel Movements 2 Kurtis Carlos M.D. Nov 02, 2017 23:26
--- NOTE | 2017-11-02 23:42 | Cardiology Progress Note ---
Assessment/Plan Assessment/Plan 1. Sinus tachycardia., resolved, likely due to urinary tract infection and fever. The treatment of sinus tachycardia is the treatment of the underlying etiology. Continue IV ABx therapy as well as hydration. 2. Acute kidney injury. Creatinine down to 1.4 3. Presyncope likely due to increased insensible loss with fever and also hypovolemia following surgery, advise hydration. 2D echo reveals normal LV systolic function. Subjective Subjective Sinus rhythm at 82. Objective Last 24 Hour Vital Signs Date Time Temp Pulse Resp B/P (MAP) Pulse Ox O2 Delivery O2 Flow Rate FiO2 11/02/17 20:00 99.2 92 20 141/73 94 Room Air 99.2 11/02/17 20:00 92 11/02/17 16:00 96.6 91 20 137/68 96 Room Air 96.6 11/02/17 16:00 90 11/02/17 12:00 98.8 82 19 134/74 98 98.8 11/02/17 11:53 87 11/02/17 09:16 96 Nasal Cannula 3.0 32 11/02/17 09:16 Nasal Cannula 3.0 32 11/02/17 08:00 98.4 85 19 128/69 97 Nasal Cannula 2.0 98.4 11/02/17 07:57 90 11/02/17 04:00 97 11/02/17 04:00 97.9 90 20 139/73 96 Nasal Cannula 2.0 97.9 11/02/17 00:00 97.7 102 20 145/78 96 Nasal Cannula 2.0 97.7 11/02/17 00:00 99 Intake and Output 11/01/17 11/02/17 19:00 07:00 Intake Total 840 ml 660 ml Output Total 1100 ml 800 ml Balance -260 ml -140 ml Intake Oral 620 ml 550 ml IV Total 220 ml 110 ml Output Urine Total 850 ml 800 ml Stool Total 250 ml # Voids 3 # Bowel Movements 2 Laboratory Tests Test 11/02/17 04:00 11/02/17 12:30 White Blood Count 7.9 K/UL (4.8-10.8) Red Blood Count 3.46 M/UL (4.70-6.10) L Hemoglobin 11.0 G/DL (14.2-18.0) L Hematocrit 32.0 % (42.0-52.0) L Mean Corpuscular Volume 92 FL (80-99) Mean Corpuscular Hemoglobin 31.7 PG (27.0-31.0) H Mean Corpuscular Hemoglobin Concent 34.3 G/DL (32.0-36.0) Red Cell Distribution Width 11.4 % (11.6-14.8) L Platelet Count 175 K/UL (150-450) Mean Platelet Volume 7.0 FL (6.5-10.1) Neutrophils (%) (Auto) 78.8 % (45.0-75.0) H Lymphocytes (%) (Auto) 13.2 % (20.0-45.0) L Monocytes (%) (Auto) 7.3 % (1.0-10.0) Eosinophils (%) (Auto) 0.4 % (0.0-3.0) Basophils (%) (Auto) 0.4 % (0.0-2.0) Sodium Level 134 MMOL/L (136-145) L Potassium Level 3.9 MMOL/L (3.5-5.1) Chloride Level 99 MMOL/L (98-107) Carbon Dioxide Level 23 MMOL/L (21-32) Anion Gap 12 mmol/L (5-15) Blood Urea Nitrogen 20 mg/dL (7-18) H Creatinine 1.4 MG/DL (0.55-1.30) H Estimat Glomerular Filtration Rate mL/min (>60) Glucose Level 136 MG/DL (74-106) H Uric Acid 4.0 MG/DL (2.6-7.2) Calcium Level 8.9 MG/DL (8.5-10.1) Magnesium Level 1.5 MG/DL (1.8-2.4) L Iron Level 14 ug/dL (50-175) L Total Iron Binding Capacity 265 ug/dL (250-450) Percent Iron Saturation 5 % (15-50) L Unsaturated Iron Binding 251 ug/dL (112-346) Ferritin 175 NG/ML (8-388) Total Bilirubin 0.7 MG/DL (0.2-1.0) Gamma Glutamyl Transpeptidase 48 U/L (5-85) Aspartate Amino Transf (AST/SGOT) 156 U/L (15-37) H Alanine Aminotransferase (ALT/SGPT) 105 U/L (12-78) H Alkaline Phosphatase 53 U/L (46-116) Troponin I 0.075 ng/mL (0.000-0.056) 0.037 ng/mL (0.000-0.056) Pro-B-Type Natriuretic Peptide 581 pg/mL (0-125) H Total Protein 7.1 G/DL (6.4-8.2) Albumin 2.8 G/DL (3.4-5.0) L Globulin 4.3 g/dL Albumin/Globulin Ratio 0.7 (1.0-2.7) L Triglycerides Level 185 MG/DL (30-150) H Cholesterol Level 102 MG/DL (< 200) LDL Cholesterol 59 mg/dL (<100) HDL Cholesterol 7 MG/DL (40-60) L Cholesterol/HDL Ratio 14.6 (3.3-4.4) H Vitamin B12 Level 1413 PG/ML (193-986) H Folate 8.1 NG/ML (8.6-58.9) L Thyroid Stimulating Hormone (TSH) 0.968 uiU/mL (0.358-3.740) Microbiology Date/Time Source Procedure Growth Status 10/31/17 11:15 Blood Blood Culture - Preliminary Gram Negative Bacillus 1 Resulted 10/31/17 11:08 Blood Blood Culture - Preliminary Gram Negative Bacillus 1 Resulted Objective HEENT: Atraumatic and normocephalic. Anicteric. Pupils are equal, round, and reactive to light and accommodation. Extraocular muscles intact. NECK: JVP less than 5 cm. No carotid bruit. Carotid upstrokes 2+ bilaterally. CVS: Normal S1, S2. Regular rate and rhythm. No murmurs, gallops, or rubs. PMI is at fourth intercostal space in the midclavicular line. LUNGS: Clear to auscultation bilaterally. ABDOMEN: Soft, nontender, and nondistended. No hepatosplenomegaly. Positive bowel sounds. EXTREMITIES: No evidence of edema, clubbing, or cyanosis. CHUY WALLACE Nov 02, 2017 23:42
[2017-11-03] VITALS: BP 156/84
--- NOTE | 2017-11-03 01:31 | Consultation ---
DATE OF CONSULTATION: 11/02/2017 UROLOGY CONSULTATION CONSULTING PHYSICIAN: Chilango Zimmerman M.D. ATTENDING/CONSULTING PHYSICIAN: Melodie Hutton M.D. CHIEF COMPLAINT/HISTORY OF PRESENT ILLNESS: I was asked by Dr. Hutton to evaluate this 77-year-old Yi gentleman regarding a history of urinary retention/urinary tract infection in the setting of recent prostate surgery. Briefly, the patient apparently had prostate surgery with Dr. Christian Kelley on . He was unable to urinate and a Jeffries catheter was replaced after the same. Unfortunately, it appears that the patient became diaphoretic and nearly fainted at home. He was brought to the hospital where he was found to have evidence of urinary tract infection and sepsis. As such, he was admitted, given fluids, and started on antibiotics and I was asked to evaluate the patient. The history taking is somewhat limited by the language barrier. It appears that the patient may have had a TURP. He reports that he does not have a history of prostate cancer and that this was done to help him urinate better. PAST MEDICAL HISTORY: 1. Diabetes mellitus. 2. Hypertension. 3. Presumed BPH. PAST SURGICAL HISTORY: Presumed TURP. MEDICATIONS: Please see the chart for current medications and administration details. Briefly, the patient is having meropenem for antibiotic coverage. ALLERGIES: No known drug allergies. SOCIAL HISTORY: Unremarkable for tobacco, alcohol, or drug use. FAMILY HISTORY: Noncontributory. REVIEW OF SYSTEMS: A 12-system review of systems essentially unremarkable outside of what is described above, although was limited by the patient's history giving. PHYSICAL EXAMINATION: GENERAL: The patient is an older Yi gentleman, awake, alert and oriented, no obvious distress. HEENT: NC/AT. EOMI. NECK: Supple. Full range of motion. Oropharynx clear. CHEST: Within normal limits. ABDOMEN: Soft, flat, nontender, and nondistended. EXTREMITIES: Warm and well perfused. No cyanosis, clubbing, or edema. BACK: No CVA tenderness to percussion. NEUROLOGIC: Grossly nonfocal. GENITOURINARY: Reveals a circumcised male phallus with a Jeffries catheter in place with clear yellow urine output. There are bilateral descended testes and cord structures. No masses or tenderness to palpation. LABORATORY AND DIAGNOSTIC DATA: White blood cell count 7.9, hematocrit 32.0, and platelets 175. Sodium 134, potassium 3.9, chloride 99, bicarbonate 23, BUN 20, creatinine 1.4, and glucose 136. LFTs notable for AST of 156 and ALT of 105. Urinalysis, specific gravity 1.010, pH 6.0. Dip test notable for 3+ protein, 2+ ketones, 5+ occult blood, and 3+ leukocyte esterase. Microanalysis with 15 to 20 red blood cells per high-power field, 10 to 15 white blood cells per high-power field, and moderate bacteria seen. Urine culture with 100,000 colonies of E coli sensitive to imipenem and ertapenem. Blood cultures with the same. Diagnostic imaging, head CT with no evidence of acute intracranial hemorrhage, mass effect, or cortical edema. Chest x-ray, no pleural effusions, consolidation, or infiltrate. ASSESSMENT AND PLAN: In summary, the patient is a 77-year-old Yi gentleman with a history of BPH status post presumed TURP for the same. His postoperative course was complicated by urinary retention and a Jeffries catheter was replaced. Unfortunately, the patient developed a urinary tract infection and urosepsis secondary to same and presented with diaphoresis and a near syncopal episode. He was found to be hypertensive and started on IV fluids and antibiotics and was admitted to the hospital. Physical exam reveals an elderly gentleman who is awake and alert and in no acute distress. His urine output is clear and yellow and the catheter is draining well. The patient's laboratory data is notable for urinary tract infection with E. coli, which spread into his blood stream as the blood cultures have grown the same. There is no relevant diagnostic imaging. I discussed today with the patient and his at the bedside, we wish to continue the patient on antibiotics and transition him to oral antibiotics when he is ready for discharge. Antibiotics to cover 10 to 14 days of total therapy, given that he was septic from his urinary tract infection. I would leave the catheter in place and allow him to follow up with Dr. Kelley for removal of the same. Thank you for allowing me to participate in the care of this nice gentleman. Please do not hesitate to contact me if you have any questions that you may further have regarding his care. I will be happy to see him with you as needed. Chilango Zimmerman M.D. DR: CRYSTAL JOB#: [id number] CC:
[2017-11-03 04:00] VITALS: BP 151/76
[2017-11-03 05:49] LABS: BASOPHILS % (AUTO) 0.8 % (0.0-2.0); EOSINOPHILS % (AUTO) 0.9 % (0.0-3.0); HEMATOCRIT 30.7 % (42.0-52.0); HEMOGLOBIN 10.4 G/DL (14.2-18.0); LYMPHOCYTES % (AUTO) 12.2 % (20.0-45.0); MEAN CORPUSCULAR VOLUME 93 FL (80-99); MONOCYTES % (AUTO) 9.7 % (1.0-10.0); NEUTROPHILS % (AUTO) 76.3 % (45.0-75.0); PLATELET COUNT 201 K/UL (150-450); RED CELL DISTRIBUTION WIDTH 11.5 % (11.6-14.8); WHITE BLOOD COUNT 8.6 K/UL (4.8-10.8)
[2017-11-03 05:56] LABS: ANION GAP 10 mmol/L (5-15); BLOOD UREA NITROGEN 18 mg/dL (7-18); CALCIUM 8.8 MG/DL (8.5-10.1); CARBON DIOXIDE 26 MMOL/L (21-32); CHLORIDE 102 MMOL/L (98-107); CREATININE 1.1 MG/DL (0.55-1.30); POTASSIUM 3.6 MMOL/L (3.5-5.1); SODIUM 138 MMOL/L (136-145)
[2017-11-03] MEDS: NovoLOG Insulin Flexpen SUBQ SCH ×4 (06:40→21:27)
[2017-11-03] MEDS: LOTEMAX 0.5% BOTH EYES SCH (08:18)
[2017-11-03] MEDS: Aspirin EC 81mg tab ORAL SCH (08:18)
[2017-11-03] MEDS: OPTH BOTH EYES SCH (08:18)
[2017-11-03] MEDS: Tamsulosin 0.4mg cap ORAL SCH (08:18)
[2017-11-03 08:25] VITALS: BP 128/71
--- NOTE | 2017-11-03 09:27 | Diagnostic Imaging Report ---
Indication: Postoperative fever status post prostate surgery on 10/29 Technique: Spiral acquisitions obtained through the abdomen and pelvis. Patient given oral contrast. No IV contrast utilized, per referring physician request.. Multiplanar reconstructions were generated. Total dose length product 747.02 mGycm. CTDIvol(s) 13.45 mGy. Dose reduction achieved using automated exposure control Comparison: None Findings: The prostate is enlarged, measures 5.8 cm AP by 6.2 cm transverse by 6 cm craniocaudad. The bladder contains a Jeffries catheter. The bladder is somewhat thick walled but only minimally distended. Air within the bladder is noted. There is evidence of a prior colocolic anastomosis at the level of the mid sigmoid. There are colonic diverticula. No evidence of diverticulitis. The appendix is normal. No small bowel distention. Contrast is seen almost far distally as the mid sigmoid. No free or loculated intraperitoneal air or fluid is evident. The distal esophagus is unremarkable. There is questionably wall thickening of the gastric antrum. Mesh anchors are seen scattered along the anterior-inferior pelvic wall. Despite this, there is a small fat-containing left inguinal hernia. Lack of IV contrast limits assessment of the solid organs. There are small gallstones present. The liver demonstrates 2 subcentimeter low-attenuation lesions in segment 8. The pancreas is unremarkable. The spleen is unremarkable except for an accessory splenule. The bilateral adrenals are unremarkable. The kidneys demonstrate bilateral cysts as well as subcentimeter low-attenuation lesions which are too small to characterize. No renal or ureteral calculi, hydronephrosis, or hydroureter. The included lung bases demonstrate right greater than left atelectatic changes. There may be trace pleural fluid on the left. The bones demonstrate degenerative spondylosis changes. Impression: Questionable wall thickening of the gastric antrum. Possibly an artifact of under distention, but gastritis, peptic ulcer disease, neoplasm or possible. Consider endoscopy for further evaluation if clinically indicated Bilateral basilar pulmonary atelectasis. Possible trace left pleural effusion Somewhat thick walled urinary bladder. Possibly an artifact of under distention, possibility of cystitis or chronic bladder wall hypertrophy due to bladder outlet obstruction should be considered Prostatomegaly Postsurgical changes as described, including evidence of prior sigmoid resection and colocolic anastomosis, anterior pelvic wall hernia mesh repair Colonic diverticulosis Cholelithiasis Bilateral renal cysts. Bilateral renal subcentimeter low-attenuation lesions which are too small to characterize. Right lobe liver lesions which are too small to characterize. No further follow-up necessary Incidental findings as noted, including degenerative spondylosis, accessory splenule, small fat-containing left inguinal hernia The CT scanner at [facility] is accredited by the [employer] and the scans are performed using protocols designed to limit radiation exposure to as low as reasonably achievable to attain images of sufficient resolution adequate for diagnostic evaluation.
[2017-11-03 12:00] VITALS: BP 139/77
--- NOTE | 2017-11-03 12:37 | Infectious Diseases Prog Note ---
Assessment/Plan Assessment/Plan Assessment: Sepsis, SP- 2ry to E.coli bacteremia likely translocation from recent urologic procedure and UTI - No abscess seen on CT -CT abd/p w/ PO contrast 11/02: Questionable wall thickening of the gastric antrum. Possibly an artifact of under distention, but gastritis, peptic ulcer disease, neoplasm or possible. Consider endoscopy for further evaluation if clinically indicated. Bilateral basilar pulmonary atelectasis. Possible trace left pleural effusion. Somewhat thick walled urinary bladder. Possibly an artifact of under distention, possibility of cystitis or chronic bladder wall hypertrophy due to bladder outlet obstruction should be considered. Prostatomegaly. Postsurgical changes as described, including evidence of prior sigmoid resection and colocolic anastomosis, anterior pelvic wall hernia mesh repair. Colonic diverticulosis. Cholelithiasis. Bilateral renal cysts. Bilateral renal subcentimeter low-attenuation lesions which are too small to characterize. Right lobe liver lesions which are too small to characterize. Incidental findings as noted, including degenerative spondylosis, accessory splenule, small fat-containing left inguinal hernia -Bcx 10/30 3 E.coli (R amp, bactrim, otherwise S); 10/31 11/11 E.coli; 11/02 p -u/a wbc 10-15, nit neg, leuk +3; ucx >100K e.coli (R amp, bactrim, otherwise S) Fever- 2ry to above, resolved -no leukocytosis -CXR: Mild central pulmonary vascular congestion is noted. There is mild atelectasis. No pleural effusions are identified. SUSAN, resolving Acute resp distress Pre syncope- likely due to hypotension -CT head: no acute findings. Urinary retention s/p Jeffries placeemnt 10/30 S/p prostate surgery 10/29 DM2 HTN Plan: -Continue Ceftriaxone 2gIV qd abx d#5 for E,coli bacteremia; will treat for 10 days from 1st neg Bcx; upon discharge will transition to PO Cipro 750mg bid to complete course. -11/02 SP Meropenem #3 -10/31 SP ZOsyn #2 -f/u 2 sets of Bcx; await clearance of bacteremia prior to discharge -f/u cx -Monitor CBC/BMP, temperatures Thank you for this consultation. Will continue to follow along with you. Discussed with RN. Subjective Allergies: Coded Allergies: NO KNOWN DRUG ALLERGIES (Unverified Allergy, Unknown, 10/31/17) Uncoded Allergies: NO KNOWN DRUG ALLERGY (Allergy, Unknown, 01/19/15) Subjective afebrile in 72hrs persist bacteremia; latest Bcx p no leukocytosis Cr improving CT abd/p with no abscess Objective Vital Signs Last 24 Hour Vital Signs Date Time Temp Pulse Resp B/P (MAP) Pulse Ox O2 Delivery O2 Flow Rate FiO2 11/03/17 08:25 98.2 86 20 128/71 95 Room Air 98.2 11/03/17 04:00 99.1 95 24 151/76 94 Room Air 99.1 11/03/17 03:49 101 11/03/17 00:00 98.0 82 24 156/84 94 Room Air 98.0 11/02/17 20:00 99.2 92 20 141/73 94 Room Air 99.2 11/02/17 20:00 92 11/02/17 16:00 96.6 91 20 137/68 96 Room Air 96.6 11/02/17 16:00 90 Height (Feet): 5 Height (Inches): 7.00 Weight (Pounds): 150 Objective General Appearance: no apparent distress, alert HEENT normocephalic, atraumatic, PERR, normal pharynx Neck: full range of motion, supple/symm/no masses Respiratory: chest non-tender, lungs clear, normal breath sounds, speaking full sentences Cardiovascular : regular rate, rhythm, no edema Gastrointestinal: normal bowel sounds, non tender, soft, non-distended, no guarding, no rebound Genitourinary: normal inspection, no CVA tenderness Musculoskeletal: back normal, gait/station normal, normal range of motion, non- tender Neurologic: alert, oriented x3, responsive, motor strength/tone normal, sensory intact, speech normal Skin: normal color, no rash, warm/dry, well hydrated Laboratory Tests Test 11/02/17 12:30 11/03/17 04:30 Troponin I 0.037 ng/mL (0.000-0.056) White Blood Count 8.6 K/UL (4.8-10.8) Red Blood Count 3.30 M/UL (4.70-6.10) L Hemoglobin 10.4 G/DL (14.2-18.0) L Hematocrit 30.7 % (42.0-52.0) L Mean Corpuscular Volume 93 FL (80-99) Mean Corpuscular Hemoglobin 31.6 PG (27.0-31.0) H Mean Corpuscular Hemoglobin Concent 33.9 G/DL (32.0-36.0) Red Cell Distribution Width 11.5 % (11.6-14.8) L Platelet Count 201 K/UL (150-450) Mean Platelet Volume 6.8 FL (6.5-10.1) Neutrophils (%) (Auto) 76.3 % (45.0-75.0) H Lymphocytes (%) (Auto) 12.2 % (20.0-45.0) L Monocytes (%) (Auto) 9.7 % (1.0-10.0) Eosinophils (%) (Auto) 0.9 % (0.0-3.0) Basophils (%) (Auto) 0.8 % (0.0-2.0) Sodium Level 138 MMOL/L (136-145) Potassium Level 3.6 MMOL/L (3.5-5.1) Chloride Level 102 MMOL/L (98-107) Carbon Dioxide Level 26 MMOL/L (21-32) Anion Gap 10 mmol/L (5-15) Blood Urea Nitrogen 18 mg/dL (7-18) Creatinine 1.1 MG/DL (0.55-1.30) Estimat Glomerular Filtration Rate mL/min (>60) Glucose Level 126 MG/DL (74-106) H Calcium Level 8.8 MG/DL (8.5-10.1) Current Medications Medications (Trade) Dose Ordered Sig/Bryanna Route PRN Reason Start Time Stop Time Status Last Admin Dose Admin Acetaminophen (Tylenol) 650 mg Q4H PRN ORAL Mild Pain/Temp > 100.5 10/31/17 12:30 11/30/17 12:29 11/01/17 02:32 Aspirin (Ecotrin) 81 mg DAILY ORAL 11/01/17 09:00 11/30/17 08:59 11/03/17 08:18 Atorvastatin Calcium (Lipitor) 10 mg QHS ORAL 10/31/17 21:00 11/30/17 20:59 11/02/17 21:42 Ceftriaxone Sodium 2 gm/ Dextrose 55 ml @ 110 mls/hr Q24H IVPB 11/02/17 17:00 11/09/17 16:59 11/02/17 19:42 Dextrose (Dextrose 50%) STAT PRN IV Hypoglycemia 10/31/17 12:30 11/30/17 12:29 Ferrous Sulfate (Feosol) 325 mg THREE TIMES A DAY ORAL 11/03/17 09:00 12/03/17 08:59 11/03/17 12:13 Insulin Aspart (NovoLOG) BEFORE MEALS AND HS SUBQ 10/31/17 12:30 11/30/17 12:29 11/03/17 06:40 Lansoprazole (Prevacid) 30 mg DAILY ORAL 11/01/17 11:00 12/01/17 10:59 11/03/17 08:18 Mirtazapine (Remeron) 7.5 mg BEDTIME ORAL 11/02/17 21:00 12/02/17 20:59 11/02/17 21:42 Patient Own Medication (Patient's Own Med) 1 ea QID BOTH EYES 11/02/17 09:00 12/02/17 08:59 11/03/17 12:13 Patient Own Medication (Patient's Own Med) 2 ea BID BOTH EYES 11/02/17 09:00 12/02/17 08:59 11/03/17 08:18 Tamsulosin HCl (Flomax) 0.4 mg DAILY ORAL 11/01/17 09:00 11/30/17 08:59 11/03/17 08:18 Zolpidem Tartrate (Ambien) 5 mg HSPRN PRN ORAL Insomnia 11/02/17 21:30 11/09/17 21:29 Taniya Lipscomb M.D. Nov 03, 2017 12:37
--- NOTE | 2017-11-03 13:24 | General Progress Note ---
Subjective Date patient seen: Nov 03, 2017 Neurologic/Psychiatric: Reports: anxiety, depressed, emotional problems Allergies: Coded Allergies: NO KNOWN DRUG ALLERGIES (Unverified Allergy, Unknown, 10/31/17) Uncoded Allergies: NO KNOWN DRUG ALLERGY (Allergy, Unknown, 01/19/15) Subjective the pt is not confused however very forgetful and comes out of bed without assistance Objective Last 24 Hour Vital Signs Date Time Temp Pulse Resp B/P (MAP) Pulse Ox O2 Delivery O2 Flow Rate FiO2 11/03/17 08:25 98.2 86 20 128/71 95 Room Air 98.2 11/03/17 04:00 99.1 95 24 151/76 94 Room Air 99.1 11/03/17 03:49 101 11/03/17 00:00 98.0 82 24 156/84 94 Room Air 98.0 11/02/17 20:00 99.2 92 20 141/73 94 Room Air 99.2 11/02/17 20:00 92 11/02/17 16:00 96.6 91 20 137/68 96 Room Air 96.6 11/02/17 16:00 90 Intake and Output 11/02/17 11/03/17 19:00 07:00 Intake Total 480 ml 565 ml Output Total 1350 ml 600 ml Balance -870 ml -35 ml Intake Oral 480 ml 510 ml IV Total 55 ml Output Urine Total 1350 ml 600 ml # Voids 3 Laboratory Tests 11/03/17 04:30: White Blood Count 8.6, Red Blood Count 3.30L, Hemoglobin 10.4L, Hematocrit 30.7L , Mean Corpuscular Volume 93, Mean Corpuscular Hemoglobin 31.6H, Mean Corpuscular Hemoglobin Concent 33.9, Red Cell Distribution Width 11.5L, Platelet Count 201, Mean Platelet Volume 6.8, Neutrophils (%) (Auto) 76.3H, Lymphocytes (%) (Auto) 12.2L, Monocytes (%) (Auto) 9.7, Eosinophils (%) (Auto) 0.9, Basophils (%) (Auto) 0.8, Sodium Level 138, Potassium Level 3.6, Chloride Level 102, Carbon Dioxide Level 26, Anion Gap 10, Blood Urea Nitrogen 18, Creatinine 1.1, Estimat Glomerular Filtration Rate , Glucose Level 126H, Calcium Level 8.8 Height (Feet): 5 Height (Inches): 7.00 Weight (Pounds): 150 General Appearance: no apparent distress, alert Neurologic: oriented x 3, responsive, depressed affect Cassius Sebastian M.D. Nov 03, 2017 13:24
--- NOTE | 2017-11-03 14:56 | Nephrology Progress Note ---
Assessment/Plan Problem List: (1) BPH (benign prostatic hyperplasia) (2) Acute renal failure Assessment: with underlying CKD (3) HTN (hypertension) (4) UTI (urinary tract infection) Assessment Acute renal failure- cr now wnl improving post aceves and discontinuation of HCTZ 1. Fever. 2. Near syncope. 3. Probable sepsis. 4. Benign prostatic hypertrophy. 5. Diabetes type 2. 6. Hypertension. 7. Hypercholesterolemia. Plan Check renal parameters and electrolytes Per orders Objective Objective Last 24 Hour Vital Signs Date Time Temp Pulse Resp B/P (MAP) Pulse Ox O2 Delivery O2 Flow Rate FiO2 11/03/17 08:25 98.2 86 20 128/71 95 Room Air 98.2 11/03/17 04:00 99.1 95 24 151/76 94 Room Air 99.1 11/03/17 03:49 101 11/03/17 00:00 98.0 82 24 156/84 94 Room Air 98.0 11/02/17 20:00 99.2 92 20 141/73 94 Room Air 99.2 11/02/17 20:00 92 11/02/17 16:00 96.6 91 20 137/68 96 Room Air 96.6 11/02/17 16:00 90 Intake and Output 11/02/17 11/03/17 19:00 07:00 Intake Total 480 ml 565 ml Output Total 1350 ml 600 ml Balance -870 ml -35 ml Intake Oral 480 ml 510 ml IV Total 55 ml Output Urine Total 1350 ml 600 ml # Voids 3 Laboratory Tests 11/03/17 04:30: White Blood Count 8.6, Red Blood Count 3.30L, Hemoglobin 10.4L, Hematocrit 30.7L , Mean Corpuscular Volume 93, Mean Corpuscular Hemoglobin 31.6H, Mean Corpuscular Hemoglobin Concent 33.9, Red Cell Distribution Width 11.5L, Platelet Count 201, Mean Platelet Volume 6.8, Neutrophils (%) (Auto) 76.3H, Lymphocytes (%) (Auto) 12.2L, Monocytes (%) (Auto) 9.7, Eosinophils (%) (Auto) 0.9, Basophils (%) (Auto) 0.8, Sodium Level 138, Potassium Level 3.6, Chloride Level 102, Carbon Dioxide Level 26, Anion Gap 10, Blood Urea Nitrogen 18, Creatinine 1.1, Estimat Glomerular Filtration Rate , Glucose Level 126H, Calcium Level 8.8 Height (Feet): 5 Height (Inches): 7.00 Weight (Pounds): 150 General Appearance: no apparent distress Cardiovascular: tachycardia Respiratory/Chest: decreased breath sounds Abdomen: soft SHARRON ANTHONY Nov 03, 2017 14:56
--- NOTE | 2017-11-03 15:21 | General Progress Note ---
Assessment/Plan Assessment/Plan HPTN DM HYPOTHYRODISM CHRONIC ABDOMINAL PAIN UROSEPSIS METABOLIC ENCEPHALOPATHY BACTEREMIA RECEIVING IV ABTX SWITCH TO PO IN AM DISCUSSED WITH PT AND HIS DC PLANNING Subjective Allergies: Coded Allergies: NO KNOWN DRUG ALLERGIES (Unverified Allergy, Unknown, 10/31/17) Subjective GERIATRIC MEDICINE CONSULTATION RECEIVED A CALL THAT PT HAS BEEN HOSPITALIZED AT [facility] APPARENTLY PT HAS UNDERGONE PROSTATE BIOPSY AND HAS DEVELOPED FEVER CHILLS AND SYNCOPE AND UROSEPSIS AND BACTEREMIA RECEIVING IV ABTX SAW HIM AT THE HOSPITAL HE IS VERY ANXIOUS TO GO HOME Objective Last 24 Hour Vital Signs Date Time Temp Pulse Resp B/P (MAP) Pulse Ox O2 Delivery O2 Flow Rate FiO2 11/03/17 12:00 97.9 98 21 139/77 95 Room Air 97.9 11/03/17 12:00 93 11/03/17 08:25 98.2 86 20 128/71 95 Room Air 98.2 11/03/17 04:00 99.1 95 24 151/76 94 Room Air 99.1 11/03/17 03:49 101 11/03/17 00:00 98.0 82 24 156/84 94 Room Air 98.0 11/02/17 20:00 99.2 92 20 141/73 94 Room Air 99.2 11/02/17 20:00 92 11/02/17 16:00 96.6 91 20 137/68 96 Room Air 96.6 11/02/17 16:00 90 Intake and Output 11/02/17 11/03/17 19:00 07:00 Intake Total 480 ml 565 ml Output Total 1350 ml 600 ml Balance -870 ml -35 ml Intake Oral 480 ml 510 ml IV Total 55 ml Output Urine Total 1350 ml 600 ml # Voids 3 Laboratory Tests 11/03/17 04:30: White Blood Count 8.6, Red Blood Count 3.30L, Hemoglobin 10.4L, Hematocrit 30.7L , Mean Corpuscular Volume 93, Mean Corpuscular Hemoglobin 31.6H, Mean Corpuscular Hemoglobin Concent 33.9, Red Cell Distribution Width 11.5L, Platelet Count 201, Mean Platelet Volume 6.8, Neutrophils (%) (Auto) 76.3H, Lymphocytes (%) (Auto) 12.2L, Monocytes (%) (Auto) 9.7, Eosinophils (%) (Auto) 0.9, Basophils (%) (Auto) 0.8, Sodium Level 138, Potassium Level 3.6, Chloride Level 102, Carbon Dioxide Level 26, Anion Gap 10, Blood Urea Nitrogen 18, Creatinine 1.1, Estimat Glomerular Filtration Rate , Glucose Level 126H, Calcium Level 8.8 Height (Feet): 5 Height (Inches): 7.00 Weight (Pounds): 150 Cardiovascular: normal rate, regular rhythm Respiratory/Chest: decreased breath sounds Abdomen: normal bowel sounds, non tender Edema: trace edema Toya Wade MD Nov 03, 2017 15:21
[2017-11-03] MEDS ORDERED: Tubing IV Secondary IV ONE (15:48)
[2017-11-03] MEDS ORDERED: NS 275ml ONE (15:48)
[2017-11-03 16:00] VITALS: BP 136/69
[2017-11-03] MEDS ORDERED: cefTRIAXone 2 GM in D5W 55 ML IVPB SCH (17:00)
[2017-11-03] MEDS: [UNRECOGNIZED DRUG - OTHER] BOTH EYES SCH ×2 (17:02→21:28)
[2017-11-03] MEDS: LOTEPREDNOL BOTH EYES SCH ×2 (17:02→21:28)
[2017-11-03 20:00] VITALS: BP 134/79
[2017-11-03] MEDS ORDERED: Zolpidem 5mg tab ORAL PRN (20:00)
[2017-11-03] MEDS: Docusate 100mg cap ORAL SCH (21:26)
--- NOTE | 2017-11-03 23:24 | Pulmonolgy Critical Care Note ---
Critical Care - Asmt/Plan Assessment/Plan: HPI 77 y/o M presents c/p fever, fainting episode, note s/p recent prostate surgery , noted to have Gram Negative Rods on Blood Cultures. PMH of DM2, HTN. On the morning of admission patient was seen by urologist and aceves catheter was placed as patient was unable to void. BP stable currently afebrile T/f out FANG No current complaints Denies CP, SOB, n/v/d. Allergies: Coded Allergies: NO KNOWN DRUG ALLERGIES (Unverified Allergy, Unknown, 10/31/17) Uncoded Allergies: NO KNOWN DRUG ALLERGY (Allergy, Unknown, 01/19/15) Medication History Scheduled Aspirin (Aspirin EC), 81 MG PO DAILY, (Reported) Atorvastatin Calcium* (Lipitor*), 10 MG PO DAILY, (Reported) Metformin Hcl* (Glucophage*), 500 MG PO DAILY, (Reported) Olmesartan/Hydrochlorothiazide 20-12.5 (Benicar Hct 20-12.5 Mg Tablet), 1 EACH PO DAILY, (Reported) Ranitidine Hcl* (Zantac*), 150 MG PO DAILY, (Reported) Tamsulosin HCl (Flomax), 0.4 MG PO DAILY, (Reported) Scheduled PRN Acetaminophen (Acetaminophen), 650 MG ORAL Q6H PRN for Prn Headache/Temp > 101, (Reported) Zolpidem Tartrate* (Ambien*), 5 MG ORAL BEDTIME PRN for Insomnia, (Reported) Patient History Healthcare decision maker Resuscitation status Full Code Advanced Directive on File Patient History Narrative Pmx: as above Shx: Denies: smoking, alcohol use, drug use Fhx: non contributory Review of Systems All Other Systems: negative except mentioned in HPI Physical Exam Physical Exam Narrative General Appearance: no apparent distress, alert HEENT normocephalic, atraumatic, PERR, normal pharynx Neck: full range of motion, supple/symm/no masses Respiratory: chest non-tender, lungs clear, normal breath sounds, speaking full sentences Cardiovascular : regular rate, rhythm, no edema Gastrointestinal: normal bowel sounds, non tender, soft, non-distended, no guarding, no rebound Genitourinary: normal inspection, no CVA tenderness Musculoskeletal: back normal, gait/station normal, normal range of motion, non- tender Neurologic: alert, oriented x3, responsive, motor strength/tone normal, sensory intact, speech normal Skin: normal color, no rash, warm/dry, well hydrated Last 24 Hour Vital Signs Date Time Temp Pulse Resp B/P (MAP) Pulse Ox O2 Delivery O2 Flow Rate FiO2 10/31/17 08:15 20 95 Venturi Mask 10.0 50 10/31/17 08:15 98.4 99 20 113/68 95 Nasal Cannula 98.4 10/31/17 04:12 136 10/31/17 04:00 100.6 136 36 115/66 94 Venturi Mask 50 100.6 10/31/17 04:00 115 10/31/17 03:55 100.6 10/31/17 02:44 102.5 10/31/17 01:40 140 10/31/17 00:00 102.6 115 22 108/72 96 Room Air 102.6 10/30/17 23:40 97.7 86 23 101/53 96 Room Air 102.0 10/30/17 23:30 86 23 101/53 96 Room Air 10/30/17 21:30 97 24 101/53 95 Room Air 10/30/17 20:30 104 23 128/111 95 Room Air 10/30/17 20:17 102.0 10/30/17 19:30 104 21 109/59 96 Room Air 10/30/17 19:18 102.0 10/30/17 18:19 102 20 99/55 100 Room Air Intake and Output 10/30/17 10/31/17 19:00 07:00 Output Total 50 ml Balance -50 ml Output Urine Total 50 ml # Bowel Movements 1 Laboratory Tests Test 10/30/17 18:40 10/30/17 19:30 10/31/17 04:14 10/31/17 09:08 White Blood Count 7.6 K/UL (4.8-10.8) 8.6 K/UL (4.8-10.8) Red Blood Count 3.56 M/UL (4.70-6.10) L 3.43 M/UL (4.70-6.10) L Hemoglobin 11.1 G/DL (14.2-18.0) L 10.8 G/DL (14.2-18.0) L Hematocrit 33.1 % (42.0-52.0) L 32.1 % (42.0-52.0) L Mean Corpuscular Volume 93 FL (80-99) 93 FL (80-99) Mean Corpuscular Hemoglobin 31.1 PG (27.0-31.0) H 31.5 PG (27.0-31.0) H Mean Corpuscular Hemoglobin Concent 33.5 G/DL (32.0-36.0) 33.7 G/DL (32.0-36.0) Red Cell Distribution Width 11.7 % (11.6-14.8) 11.6 % (11.6-14.8) Platelet Count 234 K/UL (150-450) 194 K/UL (150-450) Mean Platelet Volume 6.5 FL (6.5-10.1) 6.8 FL (6.5-10.1) Neutrophils (%) (Auto) % (45.0-75.0) % (45.0-75.0) Lymphocytes (%) (Auto) % (20.0-45.0) % (20.0-45.0) Monocytes (%) (Auto) % (1.0-10.0) % (1.0-10.0) Eosinophils (%) (Auto) % (0.0-3.0) % (0.0-3.0) Basophils (%) (Auto) % (0.0-2.0) % (0.0-2.0) Sodium Level 136 MMOL/L (136-145) 138 MMOL/L (136-145) Potassium Level 4.4 MMOL/L (3.5-5.1) 3.6 MMOL/L (3.5-5.1) Chloride Level 105 MMOL/L (98-107) 103 MMOL/L (98-107) Carbon Dioxide Level 22 MMOL/L (21-32) 20 MMOL/L (21-32) L Anion Gap 9 mmol/L (5-15) 15 mmol/L (5-15) Blood Urea Nitrogen 22 mg/dL (7-18) H 20 mg/dL (7-18) H Creatinine 2.0 MG/DL (0.55-1.30) H 1.8 MG/DL (0.55-1.30) H Estimat Glomerular Filtration Rate mL/min (>60) mL/min (>60) Glucose Level 127 MG/DL (74-106) H 151 MG/DL (74-106) H Lactic Acid Level 2.40 mmol/L (0.66-2.22) H Calcium Level 9.0 MG/DL (8.5-10.1) 8.8 MG/DL (8.5-10.1) Total Bilirubin 0.7 MG/DL (0.2-1.0) Aspartate Amino Transf (AST/SGOT) 20 U/L (15-37) Alanine Aminotransferase (ALT/SGPT) 24 U/L (12-78) Alkaline Phosphatase 42 U/L (46-116) L Total Creatine Kinase 271 U/L (26-308) Creatine Kinase MB 2.1 NG/ML (0.0-3.6) Creatine Kinase MB Relative Index 0.7 Troponin I 0.016 ng/mL (0.000-0.056) Pro-B-Type Natriuretic Peptide 210 pg/mL (0-125) H Total Protein 7.2 G/DL (6.4-8.2) Albumin 3.5 G/DL (3.4-5.0) Globulin 3.7 g/dL Albumin/Globulin Ratio 0.9 (1.0-2.7) L Urine Color Yellow Urine Appearance Slightly cloudy Urine pH 6 (4.5-8.0) Urine Specific Rand 1.010 (1.005-1.035) Urine Protein 3+ (NEGATIVE) H Urine Glucose (UA) Negative (NEGATIVE) Urine Ketones 2+ (NEGATIVE) H Urine Occult Blood 5+ (NEGATIVE) H Urine Nitrite Negative (NEGATIVE) Urine Bilirubin Negative (NEGATIVE) Urine Urobilinogen 1 MG/DL (0.0-1.0) H Urine Leukocyte Esterase 3+ (NEGATIVE) H Urine RBC 15-20 /HPF (0 - 0) H Urine WBC 10-15 /HPF (0 - 0) H Urine Squamous Epithelial Cells None /LPF (NONE/OCC) Urine Bacteria Moderate /HPF (NONE) H Urine Yeast Few /HPF (NONE) H Arterial Blood pH 7.364 (7.350-7.450) Arterial Blood Partial Pressure CO2 25.7 mmHg (35.0-45.0) L Arterial Blood Partial Pressure O2 187.9 mmHg (75.0-100.0) H Arterial Blood HCO3 14.3 mmol/L (22.0-26.0) L Arterial Blood Oxygen Saturation 98.5 % (92.0-98.0) H Arterial Blood Base Excess -9.4 Mateusz Test Positive Neutrophils % (Manual) Pending Lymphocytes % (Manual) Pending Platelet Estimate Pending Platelet Morphology Pending Hemoglobin A1c Pending Phosphorus Level 1.5 MG/DL (2.5-4.9) L Magnesium Level 1.0 MG/DL (1.8-2.4) L Microbiology Date/Time Source Procedure Growth Status 10/30/17 18:50 Blood Blood Culture - Preliminary Resulted 10/30/17 18:40 Blood Blood Culture - Preliminary Resulted 10/30/17 19:30 Urine,Clean Catch Urine Culture - Preliminary Resulted Height (Feet): 5 Height (Inches): 7.00 Weight (Pounds): 150 Medications Current Medications Medications (Trade) Dose Ordered Sig/Bryanna Route PRN Reason Start Time Stop Time Status Last Admin Dose Admin Acetaminophen (Tylenol) 650 mg Q4H PRN ORAL Mild Pain/Temp > 100.5 10/31/17 02:00 11/30/17 01:59 10/31/17 02:44 Aspirin (Ecotrin) 81 mg DAILY ORAL 10/31/17 09:00 11/30/17 08:59 10/31/17 09:39 Atorvastatin Calcium (Lipitor) 10 mg QHS ORAL 10/31/17 21:00 11/30/17 20:59 Dextrose (Dextrose 50%) STAT PRN IV Hypoglycemia 10/31/17 00:45 11/30/17 00:44 Hydrochlorothiazide (Hydrodiuril) 12.5 mg DAILY ORAL 10/31/17 09:00 11/30/17 08:59 10/31/17 09:39 Insulin Aspart (NovoLOG) BEFORE MEALS AND HS SUBQ 10/31/17 06:30 11/30/17 06:29 Metformin HCl (Glucophage) 500 mg DAILY ORAL 10/31/17 09:00 11/30/17 08:59 UNV Piperacillin Sod/ Tazobactam Sod 3.375 gm/Dextrose 110 ml @ 27.5 mls/hr EVERY 8 HOURS IVPB 10/31/17 06:00 11/05/17 05:59 10/31/17 05:32 Tamsulosin HCl (Flomax) 0.4 mg DAILY ORAL 10/31/17 09:00 11/30/17 08:59 10/31/17 09:39 Zolpidem Tartrate (Ambien) 5 mg BEDTIME PRN ORAL Insomnia 10/31/17 00:45 11/07/17 00:44 10/31/17 01:51 Assessment/Plan Assessment: Sepsis/fevers secondary to GNR bacteremia likely translocation from recent urologic procedure - r/o ESBL -Bcx 10/30 10/11 GNRs -u/a wbc 10-15, nit neg, leuk +3; ucx p Acute resp distress: Much improved, CXR: Mild central pulmonary vascular congestion is noted. There is mild atelectasis. No pleural effusions are identified. Avoid excessive positive fluid balance Pre syncope- likely due to hypotension -CT head: no acute findings. Urinary retention s/p Aceves placeemnt 10/30 S/p prostate surgery 10/29 DM2 HTN Plan: Continue Antibiotics per ID Meropenem for ESBL coverage pending ID and sensi GNRs -Monitor labs - PRN Oxygen - Triflo - DVT prophyllaxis Thank you for this consultation. Discussed with RN. Critical Care - Objective Last 24 Hour Vital Signs Date Time Temp Pulse Resp B/P (MAP) Pulse Ox O2 Delivery O2 Flow Rate FiO2 11/03/17 20:00 96.6 91 18 134/79 95 96.6 11/03/17 19:00 Nasal Cannula 3.0 32 11/03/17 19:00 97 Nasal Cannula 3.0 32 11/03/17 16:00 98.0 93 20 136/69 95 Room Air 98.0 11/03/17 12:00 97.9 98 21 139/77 95 Room Air 97.9 11/03/17 12:00 93 11/03/17 08:25 98.2 86 20 128/71 95 Room Air 98.2 11/03/17 04:00 99.1 95 24 151/76 94 Room Air 99.1 11/03/17 03:49 101 11/03/17 00:00 98.0 82 24 156/84 94 Room Air 98.0 Accucheck: 153 Critical Care - Subjective ROS Limited/Unobtainable: Yes Condition: improving IV Access: peripheral EKG Rhythm: Sinus Rhythm FI02: 32 I&O: Intake and Output 11/02/17 11/03/17 19:00 07:00 Intake Total 480 ml 565 ml Output Total 1350 ml 600 ml Balance -870 ml -35 ml Intake Oral 480 ml 510 ml IV Total 55 ml Output Urine Total 1350 ml 600 ml # Voids 3 Kurtis Carlos M.D. Nov 03, 2017 23:24
--- NOTE | 2017-11-03 23:59 | Cardiology Progress Note ---
Assessment/Plan Assessment/Plan 1. Sinus tachycardia, resolved, likely due to urinary tract infection and fever. The treatment of sinus tachycardia is the treatment of the underlying etiology. Continue IV ABx therapy as well as hydration. 2. Acute kidney injury, resolved, creatinine down to 1.1. 3. Presyncope likely due to increased insensible loss with fever and also hypovolemia following surgery, responded well to hydration. 2D echo reveals normal LV systolic function. Subjective Subjective Sinus rhythm at 91. Objective Last 24 Hour Vital Signs Date Time Temp Pulse Resp B/P (MAP) Pulse Ox O2 Delivery O2 Flow Rate FiO2 11/03/17 20:00 96.6 91 18 134/79 95 96.6 11/03/17 19:00 Nasal Cannula 3.0 32 11/03/17 19:00 97 Nasal Cannula 3.0 32 11/03/17 16:00 98.0 93 20 136/69 95 Room Air 98.0 11/03/17 12:00 97.9 98 21 139/77 95 Room Air 97.9 11/03/17 12:00 93 11/03/17 08:25 98.2 86 20 128/71 95 Room Air 98.2 11/03/17 04:00 99.1 95 24 151/76 94 Room Air 99.1 11/03/17 03:49 101 11/03/17 00:00 98.0 82 24 156/84 94 Room Air 98.0 Intake and Output 11/02/17 11/03/17 19:00 07:00 Intake Total 480 ml 565 ml Output Total 1350 ml 600 ml Balance -870 ml -35 ml Intake Oral 480 ml 510 ml IV Total 55 ml Output Urine Total 1350 ml 600 ml # Voids 3 2D Echo: EF 60%, Mild RVE, Mod AR,MR,MS, ADAM @1.8 cm2, Grade I LVDD, RVSP 50 mmHg Laboratory Tests Test 11/03/17 04:30 White Blood Count 8.6 K/UL (4.8-10.8) Red Blood Count 3.30 M/UL (4.70-6.10) L Hemoglobin 10.4 G/DL (14.2-18.0) L Hematocrit 30.7 % (42.0-52.0) L Mean Corpuscular Volume 93 FL (80-99) Mean Corpuscular Hemoglobin 31.6 PG (27.0-31.0) H Mean Corpuscular Hemoglobin Concent 33.9 G/DL (32.0-36.0) Red Cell Distribution Width 11.5 % (11.6-14.8) L Platelet Count 201 K/UL (150-450) Mean Platelet Volume 6.8 FL (6.5-10.1) Neutrophils (%) (Auto) 76.3 % (45.0-75.0) H Lymphocytes (%) (Auto) 12.2 % (20.0-45.0) L Monocytes (%) (Auto) 9.7 % (1.0-10.0) Eosinophils (%) (Auto) 0.9 % (0.0-3.0) Basophils (%) (Auto) 0.8 % (0.0-2.0) Sodium Level 138 MMOL/L (136-145) Potassium Level 3.6 MMOL/L (3.5-5.1) Chloride Level 102 MMOL/L (98-107) Carbon Dioxide Level 26 MMOL/L (21-32) Anion Gap 10 mmol/L (5-15) Blood Urea Nitrogen 18 mg/dL (7-18) Creatinine 1.1 MG/DL (0.55-1.30) Estimat Glomerular Filtration Rate mL/min (>60) Glucose Level 126 MG/DL (74-106) H Calcium Level 8.8 MG/DL (8.5-10.1) Objective HEENT: Atraumatic and normocephalic. Anicteric. Pupils are equal, round, and reactive to light and accommodation. Extraocular muscles intact. NECK: JVP less than 5 cm. No carotid bruit. Carotid upstrokes 2+ bilaterally. CVS: Normal S1, S2. Regular rate and rhythm. No murmurs, gallops, or rubs. PMI is at fourth intercostal space in the midclavicular line. LUNGS: Clear to auscultation bilaterally. ABDOMEN: Soft, nontender, and nondistended. No hepatosplenomegaly. Positive bowel sounds. EXTREMITIES: No evidence of edema, clubbing, or cyanosis. CHUY WALLACE Nov 03, 2017 23:59
[2017-11-04 03:44] VITALS: BP 139/79
[2017-11-04] MEDS: NovoLOG Insulin Flexpen SUBQ SCH ×3 (06:05→16:30)
[2017-11-04 08:00] VITALS: BP 135/72
[2017-11-04] MEDS: [UNRECOGNIZED DRUG - OTHER] BOTH EYES SCH ×2 (08:11→13:28)
[2017-11-04] MEDS: Docusate 100mg cap ORAL SCH (08:12)
[2017-11-04] MEDS ORDERED: Aspirin EC 81mg tab ORAL SCH (09:00)
[2017-11-04] MEDS ORDERED: Tamsulosin 0.4mg cap ORAL SCH (09:00)
--- NOTE | 2017-11-04 11:02 | Nephrology Progress Note ---
Assessment/Plan Problem List: (1) BPH (benign prostatic hyperplasia) (2) Acute renal failure Assessment: with underlying CKD (3) HTN (hypertension) (4) UTI (urinary tract infection) Assessment Acute renal failure- cr now wnl improving post aceves and discontinuation of HCTZ 1. Fever. 2. Near syncope. 3. Probable sepsis. 4. Benign prostatic hypertrophy. 5. Diabetes type 2. 6. Hypertension. 7. Hypercholesterolemia. Plan Check renal parameters and electrolytes Per orders Subjective ROS Limited/Unobtainable: No Constitutional: Reports: malaise Objective Objective Last 24 Hour Vital Signs Date Time Temp Pulse Resp B/P (MAP) Pulse Ox O2 Delivery O2 Flow Rate FiO2 11/04/17 08:00 97.7 83 19 135/72 95 97.7 11/04/17 03:44 98.4 90 20 139/79 92 Room Air 98.4 11/03/17 20:00 95 Room Air 11/03/17 20:00 96.6 91 18 134/79 95 96.6 11/03/17 19:00 Nasal Cannula 3.0 32 11/03/17 19:00 97 Nasal Cannula 3.0 32 11/03/17 16:00 98.0 93 20 136/69 95 Room Air 98.0 11/03/17 12:00 97.9 98 21 139/77 95 Room Air 97.9 11/03/17 12:00 93 Intake and Output 11/03/17 11/04/17 19:00 07:00 Intake Total 300 ml 250 ml Output Total 500 ml 500 ml Balance -200 ml -250 ml Intake Oral 300 ml Other 250 ml Output Urine Total 500 ml 500 ml # Bowel Movements 1 1 Height (Feet): 5 Height (Inches): 7.00 Weight (Pounds): 150 General Appearance: no apparent distress Objective no change SHARRON ANTHONY Nov 04, 2017 11:02
--- NOTE | 2017-11-04 11:04 | Infectious Diseases Prog Note ---
Assessment/Plan Assessment/Plan Assessment: Sepsis, SP- 2ry to E.coli bacteremia likely translocation from recent urologic procedure and UTI - No abscess seen on CT -CT abd/p w/ PO contrast 11/02: Questionable wall thickening of the gastric antrum. Possibly an artifact of under distention, but gastritis, peptic ulcer disease, neoplasm or possible. Consider endoscopy for further evaluation if clinically indicated. Bilateral basilar pulmonary atelectasis. Possible trace left pleural effusion. Somewhat thick walled urinary bladder. Possibly an artifact of under distention, possibility of cystitis or chronic bladder wall hypertrophy due to bladder outlet obstruction should be considered. Prostatomegaly. Postsurgical changes as described, including evidence of prior sigmoid resection and colocolic anastomosis, anterior pelvic wall hernia mesh repair. Colonic diverticulosis. Cholelithiasis. Bilateral renal cysts. Bilateral renal subcentimeter low-attenuation lesions which are too small to characterize. Right lobe liver lesions which are too small to characterize. Incidental findings as noted, including degenerative spondylosis, accessory splenule, small fat-containing left inguinal hernia -Bcx 10/30 10/11 E.coli (R amp, bactrim, otherwise S); 10/31 11/11 E.coli; 11/02 NTD x4 -u/a wbc 10-15, nit neg, leuk +3; ucx >100K e.coli (R amp, bactrim, otherwise S) Fever- 2ry to above, resolved -no leukocytosis -CXR: Mild central pulmonary vascular congestion is noted. There is mild atelectasis. No pleural effusions are identified. SUSAN, resolving Acute resp distress Pre syncope- likely due to hypotension -CT head: no acute findings. Urinary retention s/p Jeffries placeemnt 10/30 S/p prostate surgery 10/29 DM2 HTN Plan: -Continue Ceftriaxone 2gIV qd abx d#6 for E,coli bacteremia; Ok to discharge on PO Cipro 750mg bid until 11/11/17 (10 days from 1st neg Bcx on 10/29) -11/02 SP Meropenem #3 -10/31 SP ZOsyn #2 -f/u repaet 2 sets of Bcx -f/u cx -Monitor CBC/BMP, temperatures Thank you for this consultation. Will continue to follow along with you. Discussed with RN. Subjective Allergies: Coded Allergies: NO KNOWN DRUG ALLERGIES (Unverified Allergy, Unknown, 10/31/17) Subjective afebrile latest repeat bcx NTD no leukocytosis Objective Vital Signs Last 24 Hour Vital Signs Date Time Temp Pulse Resp B/P (MAP) Pulse Ox O2 Delivery O2 Flow Rate FiO2 11/04/17 08:00 97.7 83 19 135/72 95 97.7 11/04/17 03:44 98.4 90 20 139/79 92 Room Air 98.4 11/03/17 20:00 95 Room Air 11/03/17 20:00 96.6 91 18 134/79 95 96.6 11/03/17 19:00 Nasal Cannula 3.0 32 11/03/17 19:00 97 Nasal Cannula 3.0 32 11/03/17 16:00 98.0 93 20 136/69 95 Room Air 98.0 11/03/17 12:00 97.9 98 21 139/77 95 Room Air 97.9 11/03/17 12:00 93 Height (Feet): 5 Height (Inches): 7.00 Weight (Pounds): 150 Objective General Appearance: no apparent distress, alert HEENT normocephalic, atraumatic, PERR, normal pharynx Neck: full range of motion, supple/symm/no masses Respiratory: chest non-tender, lungs clear, normal breath sounds, speaking full sentences Cardiovascular : regular rate, rhythm, no edema Gastrointestinal: normal bowel sounds, non tender, soft, non-distended, no guarding, no rebound Genitourinary: normal inspection, no CVA tenderness Musculoskeletal: back normal, gait/station normal, normal range of motion, non- tender Neurologic: alert, oriented x3, responsive, motor strength/tone normal, sensory intact, speech normal Skin: normal color, no rash, warm/dry, well hydrated Microbiology Date/Time Source Procedure Growth Status 11/02/17 14:32 Blood Blood Culture - Preliminary NO GROWTH AFTER 24 HOURS Resulted 11/02/17 14:25 Blood Blood Culture - Preliminary NO GROWTH AFTER 24 HOURS Resulted Current Medications Medications (Trade) Dose Ordered Sig/Bryanna Route PRN Reason Start Time Stop Time Status Last Admin Dose Admin Acetaminophen (Tylenol) 650 mg Q4H PRN ORAL Mild Pain/Temp > 100.5 11/03/17 15:30 11/30/17 15:29 11/04/17 08:12 Aspirin (Ecotrin) 81 mg DAILY ORAL 11/04/17 09:00 11/30/17 08:59 11/04/17 08:11 Atorvastatin Calcium (Lipitor) 10 mg QHS ORAL 11/03/17 21:00 11/30/17 20:59 11/03/17 21:26 Ceftriaxone Sodium 2 gm/ Dextrose 55 ml @ 110 mls/hr Q24H IVPB 11/03/17 17:00 11/09/17 16:59 11/03/17 17:01 Dextrose (Dextrose 50%) STAT PRN IV Hypoglycemia 11/03/17 15:30 12/03/17 15:29 Docusate Sodium (Colace) 100 mg TWICE A DAY ORAL 11/03/17 21:00 12/03/17 20:59 11/04/17 08:12 Ferrous Sulfate (Feosol) 325 mg THREE TIMES A DAY ORAL 11/03/17 18:00 12/03/17 08:59 11/04/17 08:11 Insulin Aspart (NovoLOG) BEFORE MEALS AND HS SUBQ 11/03/17 16:30 11/30/17 12:29 11/04/17 06:05 Lansoprazole (Prevacid) 30 mg DAILY ORAL 11/04/17 09:00 12/01/17 10:59 11/04/17 08:11 Lorazepam (Ativan) 1 mg Q6H PRN ORAL For Anxiety 11/04/17 10:45 11/11/17 10:44 UNV Mirtazapine (Remeron) 15 mg BEDTIME ORAL 11/03/17 21:00 12/03/17 20:59 11/03/17 21:26 Patient Own Medication (Patient's Own Med) 1 ea QID BOTH EYES 11/03/17 18:00 12/02/17 08:59 11/04/17 08:11 Patient Own Medication (Patient's Own Med) 2 ea BID BOTH EYES 11/03/17 18:00 12/02/17 08:59 11/03/17 21:28 Tamsulosin HCl (Flomax) 0.4 mg DAILY ORAL 11/04/17 09:00 11/30/17 08:59 11/04/17 08:11 Taniya Lipscomb M.D. Nov 04, 2017 11:04
[2017-11-04] MEDS ORDERED: LORazepam 1mg tab ORAL PRN (11:30)
[2017-11-04 12:00] VITALS: BP 138/54
--- NOTE | 2017-11-04 12:33 | General Progress Note ---
Assessment/Plan Status: stable Assessment/Plan anxiety d/o sun downing dc sheryl cont remeron dc denter Subjective Date patient seen: Nov 04, 2017 Neurologic/Psychiatric: Reports: anxiety, depressed Allergies: Coded Allergies: NO KNOWN DRUG ALLERGIES (Unverified Allergy, Unknown, 10/31/17) Subjective the pt was agitated last night. calm today and not coming out of bed. Objective Last 24 Hour Vital Signs Date Time Temp Pulse Resp B/P (MAP) Pulse Ox O2 Delivery O2 Flow Rate FiO2 11/04/17 08:00 97.7 83 19 135/72 95 97.7 11/04/17 03:44 98.4 90 20 139/79 92 Room Air 98.4 11/03/17 20:00 95 Room Air 11/03/17 20:00 96.6 91 18 134/79 95 96.6 11/03/17 19:00 Nasal Cannula 3.0 32 11/03/17 19:00 97 Nasal Cannula 3.0 32 11/03/17 16:00 98.0 93 20 136/69 95 Room Air 98.0 Intake and Output 11/03/17 11/04/17 19:00 07:00 Intake Total 300 ml 250 ml Output Total 500 ml 500 ml Balance -200 ml -250 ml Intake Oral 300 ml Other 250 ml Output Urine Total 500 ml 500 ml # Bowel Movements 1 1 Height (Feet): 5 Height (Inches): 7.00 Weight (Pounds): 150 General Appearance: no apparent distress, alert Neurologic: oriented x 3, responsive, depressed affect Cassius Sebastian M.D. Nov 04, 2017 12:32
[2017-11-04] MEDS ORDERED: CIPRO500 MG/51 PO (12:40)
--- NOTE | 2017-11-04 12:48 | Internal Med Progress Note ---
Subjective Date of Service: Nov 04, 2017 Physician Name Eber Schumacher Attending Physician Melodie Hutton MD Current Medications Medications (Trade) Dose Ordered Sig/Bryanna Route PRN Reason Start Time Stop Time Status Last Admin Dose Admin Acetaminophen (Tylenol) 650 mg Q4H PRN ORAL Mild Pain/Temp > 100.5 11/03/17 15:30 11/30/17 15:29 11/04/17 08:12 Aspirin (Ecotrin) 81 mg DAILY ORAL 11/04/17 09:00 11/30/17 08:59 11/04/17 08:11 Atorvastatin Calcium (Lipitor) 10 mg QHS ORAL 11/03/17 21:00 11/30/17 20:59 11/03/17 21:26 Ceftriaxone Sodium 2 gm/ Dextrose 55 ml @ 110 mls/hr Q24H IVPB 11/03/17 17:00 11/09/17 16:59 11/03/17 17:01 Dextrose (Dextrose 50%) STAT PRN IV Hypoglycemia 11/03/17 15:30 12/03/17 15:29 Docusate Sodium (Colace) 100 mg TWICE A DAY ORAL 11/03/17 21:00 12/03/17 20:59 11/04/17 08:12 Ferrous Sulfate (Feosol) 325 mg THREE TIMES A DAY ORAL 11/03/17 18:00 12/03/17 08:59 11/04/17 08:11 Insulin Aspart (NovoLOG) BEFORE MEALS AND HS SUBQ 11/03/17 16:30 11/30/17 12:29 11/04/17 06:05 Lansoprazole (Prevacid) 30 mg DAILY ORAL 11/04/17 09:00 12/01/17 10:59 11/04/17 08:11 Lorazepam (Ativan) 1 mg Q6H PRN ORAL For Anxiety 11/04/17 11:30 11/11/17 11:29 Mirtazapine (Remeron) 15 mg BEDTIME ORAL 11/03/17 21:00 12/03/17 20:59 11/03/17 21:26 Patient Own Medication (Patient's Own Med) 1 ea QID BOTH EYES 11/03/17 18:00 12/02/17 08:59 11/04/17 08:11 Patient Own Medication (Patient's Own Med) 2 ea BID BOTH EYES 11/03/17 18:00 12/02/17 08:59 11/03/17 21:28 Tamsulosin HCl (Flomax) 0.4 mg DAILY ORAL 11/04/17 09:00 11/30/17 08:59 11/04/17 08:11 Allergies: Coded Allergies: NO KNOWN DRUG ALLERGIES (Unverified Allergy, Unknown, 10/31/17) ROS Limited/Unobtainable: No Constitutional: Reports: no symptoms HEENT: Reports: no symptoms Cardiovascular: Reports: no symptoms Respiratory: Reports: no symptoms Gastrointestinal/Abdominal: Reports: no symptoms Genitourinary: Reports: no symptoms Neurologic/Psychiatric: Reports: no symptoms Subjective 77 YO M admitted with near syncope. Now UTI and sepsis. Cover for [facility] Med-Dr Hutton. FANG Objective Last Vital Signs Date Time Temp Pulse Resp B/P (MAP) Pulse Ox O2 Delivery O2 Flow Rate FiO2 11/04/17 12:00 96.6 80 19 138/54 97 96.6 11/04/17 03:44 Room Air 11/03/17 19:00 3.0 32 Microbiology Date/Time Source Procedure Growth Status 11/02/17 14:32 Blood Blood Culture - Preliminary NO GROWTH AFTER 24 HOURS Resulted 11/02/17 14:25 Blood Blood Culture - Preliminary NO GROWTH AFTER 24 HOURS Resulted Intake and Output 11/03/17 11/04/17 19:00 07:00 Intake Total 300 ml 250 ml Output Total 500 ml 500 ml Balance -200 ml -250 ml Intake Oral 300 ml Other 250 ml Output Urine Total 500 ml 500 ml # Bowel Movements 1 1 Objective General Appearance: WD/WN, alert, mild distress EENT: PERRL/EOMI, normal ENT inspection Neck: non-tender, normal alignment, supple Cardiovascular: normal peripheral pulses, regular rhythm, no gallop/murmur Respiratory/Chest: chest wall non-tender, lungs clear, normal breath sounds, no respiratory distress, no accessory muscle use Abdomen: normal bowel sounds, non tender, soft, no organomegaly, no mass Extremities: normal range of motion, non-tender Neurologic: fry cook II-XII grossly normal, no motor/sensory deficits Skin: normal pigmentation, warm/dry Assessment/Plan Problem List: (1) Sepsis Assessment & Plan: E. Coli. Continue ceftriaxone per ID (2) Diabetes mellitus, type II Assessment & Plan: Continue novolog sliding scale. (3) HTN (hypertension) Assessment & Plan: Currently hypotensive. (4) Hypercholesteremia (5) UTI (urinary tract infection) Assessment & Plan: E. Coli. Continue ceftriaxone per ID (6) Syncope (7) BPH (benign prostatic hyperplasia) (8) Hyperlipidemia Status: progressing EBER SCHUMACHER Nov 04, 2017 12:48
[2017-11-04 16:00] VITALS: BP 130/95
--- NOTE | 2017-11-05 15:48 | Discharge Summary ---
Discharge Summary Discharge Summary Discharge Summary DATE OF ADMISSION: 10/30/2017 DATE OF DISCHARGE: 11/04/2017 CONSULTANTS: 1. Dr. Cassius Sebastian 2. Dr. Bishop Mendez 3. Dr. Raoul Ruiz 4. Dr. Taniya Lipscomb BRIEF HOSPITAL COURSE: Patient is a 77-year-old white male who presented to ED for complaints of near syncope. Patient is Farsi speaking. According to patient's family he had history of prostate cancer. Symptoms started since 10/30/2017, he was unable to urinate, and was seen by a urologist who placed a Jeffries catheter. The patient returned home and experienced diaphoresis and had a near syncopal episode. He then presented to Emergency room. He has medical history significant for diabetes mellitus type 2, BPH, hypertension, and hypercholesterolemia. He is status post transurethral resection of the prostate. On evaluation at ED he was found to be febrile with temperature of 102. Blood work did not show any leukocytosis WBC was 7.6, hemoglobin was 11, hematocrit 33. His initial troponin was negative. Lactic acid was 2.4. Urine WBC 10-15, urine RBC 15-20, leukocyte esterase 3+, nitrite was negative. He was admitted for evaluation of fever possible sepsis, possibly secondary to urinary tract infection. He was pancultured. He was started empirically on Zosyn. He underwent cardiac evaluation, 12-lead EKG showed sinus tachycardia with no ST to T wave abnormalities. Sinus tachycardia was assessed to be likely due to urinary tract infection and fever. He was given IV hydration. Creatinine was initially 2.0 and responded to IV fluids. Echocardiogram revealed normal left ventricular systolic function, EF of 60-65%, moderate aortic insufficiency, mild to moderate mitral regurgitation, mild to moderate tricuspid ejection dictation, PA pressure of 50 consistent with moderate pulmonary hypertension. He had acute respiratory distress. Chest x-ray showed mild central pulmonary vascular congestion, mild atelectasis, no pleural effusion identified. He was given oxygen support and was encouraged to use incentive spirometer. He had episodes of confusion with waxing and waning of consciousness, patient has been agitated and coming out of bed. He has been taking Ambien at home, Ambien was discontinued and was switched to Remeron. He was also provided a sitter for patient safety. He underwent urological evaluation, urine output was clear and yellow and catheter was draining well. Was advised to leave catheter in place to allow him to follow-up with his own urologist. Blood culture showed growth of Escherichia coli and urine culture with Escherichia coli, patient has sepsis secondary to Escherichia coli bacteremia with likely translocation from recent urologic procedure. He was initially given Zosyn and meropenem and was eventually switched to ceftriaxone. He underwent CT of the abdomen and pelvis that showed wall thickening in the gastric antrum, bilateral basilar pulmonary atelectasis, possible trace left pleural effusion, thickened urinary bladder wall, prostomegaly, evidence of prior sigmoid resection and colonic anastomoses, colonic diverticulosis, cholelithiasis and bilateral renal cyst. Subsequent repeat blood culture did not isolate any growth. He was eventually cleared for discharge to continue by mouth antibiotic. FINAL DIAGNOSES: 1. Sepsis secondary to Escherichia coli bacteremia likely translocation from recent urologic procedure and UTI. 2. Acute kidney injury 3. Urinary tract infection with Escherichia coli 4. BPH 5. Hypercholesterolemia 6. Diabetes mellitus type 2 7. Urinary retention status post Jeffries catheter placement 8. Presyncope likely due to hypotension 9. Acute respiratory distress 10. Anxiety disorder 11. DISPOSITION: Patient was discharged to [facility]. DISCHARGE MEDICATIONS: Refer to Discharge Medication List. Continue with Cipro 750 mg twice a day until 11/11/2017 I have been assigned to dictate discharge summary on this account, and I was not involved in the patient's management. Blanca Bowman NP Nov 05, 2017 15:48
== END 2017-11-04 17:10 | DRG 871 ==
LOC: EDBD 18:22 → EMR 18:41 → 2E 18:56 → EDBEDREQ 20:03 → 2E 10-31 02:32 → 2W 10-31 11:45 → 4W 11-03 15:31
DX: A41.51 Sepsis due to Escherichia coli [E. coli] (principal); G93.40 Encephalopathy, unspecified; G93.41 Metabolic encephalopathy; N17.9 Acute kidney failure, unspecified; N39.0 Urinary tract infection, site not specified; R06.03 Acute respiratory distress; E11.9 Type 2 diabetes mellitus without complications; I10 Essential (primary) hypertension; R55 Syncope and collapse; N40.0 Benign prostatic hyperplasia without lower urinary tract symptoms; E78.00 Pure hypercholesterolemia, unspecified; Z85.46 Personal history of malignant neoplasm of prostate; I35.1 Nonrheumatic aortic (valve) insufficiency; I34.0 Nonrheumatic mitral (valve) insufficiency; R33.9 Retention of urine, unspecified; F41.9 Anxiety disorder, unspecified
CPT/HCPCS: 36415; 36600; 70450; 71045; 74176; 80048; 80053; 80061; 80076; 81003; 82550; 82553; 82607; 82728; 82746; 82803; 82962; 82977; 83036; 83540; 83550; 83605; 83735; 83880; 84100; 84443; 84484; 84550; 85007; 85025; 86140; 87040; 87086; 87181; 93005; 93306; 94760; 99285; J1815